=== PATIENT | male | born 1965 | race Two or more races ===

== ENCOUNTER → 2022-02-02 08:19 | Outpatient (BNV) | payer MEDICAID, SELFPAY | PROVIDERS: PCP Internal Medicine; Visit Provider Internal Medicine Medical Oncology | DX: E27.8 Other specified disorders of adrenal gland (principal) | CPT/HCPCS: 99204; 99213; 99214; 99215 ==

== ENCOUNTER 2022-02-09 11:38 | Day surgery (SDC) | payer MEDICAID, SELFPAY ==
--- NOTE | ~2022-02-09 | CT_ITS ---
PROCEDURE: CT GUIDED BIOPSY, ABDOMINAL MASS CLINICAL INFORMATION: Large right adrenal mass. COMPARISON: None TECHNIQUE: Following explaining CT fluoroscopy-guided right adrenal mass biopsy procedure, benefits and risks, a written consent was obtained. Patient was placed in the right lateral prone decubitus position and preliminary CT imaging was obtained with lead markers along the right posterolateral abdomen. An optimal marker was selected and marked on the skin. The marked site was cleaned and draped with 2% chlorhexidine solution. 1% lidocaine was injected at puncture site. Through a small skin incision an 18-gauge guide needle was advanced from the skin into the right adrenal mass. Coaxially an 18-gauge gun was administered into the right adrenal mass and a 3 pass fine-needle biopsy aspiration was performed. Postprocedure sterile dressing applied. Patient tolerated procedure extremely well. IV fentanyl and Versed were administered as part of conscious sedation and patient monitored for a good [address] examination was performed using dose optimization techniques as appropriate, variously including the following: *Automated exposure control *Adjustment of mA and/or kV according to patient size (this includes techniques or standardized protocols for targeted exams where dose is matched to indication/reason for exam; i.e. extremities or head) *Use of iterative reconstruction technique DLP: 267 mGy-cm FINDINGS: On preliminary CT imaging there is large right adrenal heterogeneous mass seen. A 3 pass 18-gauge core biopsy needle was performed. Sample collected was sent in formalin and RPM for further analysis. CT/CT biopsy abdomen percutaneous IMPRESSION: Successful CT fluoroscopy-guided right adrenal mass biopsy performed. There were no immediate complications.
[2022-02-09 12:20] VITALS: BMI 20.4
[2022-02-09 15:30] VITALS: BP 100/62; PULSE 84; RESP 16; TEMP 36.9; O2SAT 98
[2022-02-09 15:45] VITALS: BP 112/70; PULSE 84; RESP 16; O2SAT 97
[2022-02-09 16:00] VITALS: BP 118/65; PULSE 74; RESP 17; O2SAT 97
[2022-02-09 16:15] VITALS: BP 121/67; PULSE 83; RESP 18; O2SAT 97
[2022-02-09 16:30] VITALS: BP 110/69; PULSE 78; RESP 17; TEMP 36.4; O2SAT 99
== END 2022-02-09 16:45 | disposition home or self-care (01) ==
PROVIDERS: Internal Medicine; Radiology Diagnostic Radiology; PCP Internal Medicine; Visit Provider Internal Medicine Medical Oncology
DX: C74.91 Malignant neoplasm of unspecified part of right adrenal gland (principal); I25.10 Atherosclerotic heart disease of native coronary artery without angina pectoris; Z98.61 Coronary angioplasty status; J43.9 Emphysema, unspecified; K21.9 Gastro-esophageal reflux disease without esophagitis; Z79.899 Other long term (current) drug therapy; F17.210 Nicotine dependence, cigarettes, uncomplicated
CPT/HCPCS: 49180; 77012; 81210; 81235; 81275; 81276; 88305; 88341; 88342; 88360; 88374; 99152; J2250; J3010

== ENCOUNTER 2022-02-12 12:56 | Outpatient (REF) | payer MEDICAID, SELFPAY ==
--- NOTE | ~2022-02-12 | CT_ITS ---
EXAMINATION: CT CHEST WITH CONTRAST CLINICAL INFORMATION: Right adrenal mass. Evaluate lung cancer. COMPARISON: None TECHNIQUE: Multidetector volumetric CT imaging of the chest was obtained after the administration of 65 mL of Omnipaque 350 intravenous contrast without immediate adverse reactions. Axial MIP volume rendering provided. Sagittal and coronal reformatted images were obtained. This CT examination was performed using dose optimization techniques as appropriate, variously including the following: *Automated exposure control *Adjustment of mA and/or kV according to patient size (this includes techniques or standardized protocols for targeted exams where dose is matched to indication/reason for exam; i.e. extremities or head) *Use of iterative reconstruction technique DLP: 118 mGy-cm FINDINGS: LUNGS: There is a lobulated low-attenuation soft tissue nodule/mass seen in the central anterior segment of the left upper lobe. This measures 3.4 x 1.8 cm in AP and transverse dimension. There is an adjacent more inferior lateral low-attenuation lobulated nodule in the left upper lobe. Difficult to measure on axial images. This measures approximately 2 x 1.5 cm in longitudinal and transverse dimension coronal reconstructed 37 and 0.9 cm in AP dimension sagittal reconstructed image 37 series 9. There is evidence of severe emphysema. The lungs are otherwise clear. MEDIASTINUM: There are prominent left mediastinal lymph nodes. Largest lymph node is a left precarinal lymph node measuring 9 mm in short axis. There are small bilateral hilar lymph nodes. There are coronary artery stents. The heart does not appear enlarged. The thoracic aorta is normal in caliber . PLEURA: There is no pleural effusion. No pleural mass or thickening. AXILLA: Left axillary lymph nodes. Lymph nodes are slightly prominent, largest left axillary lymph node measuring 1.3 cm in short axis. Small right axillary lymph nodes. No chest wall mass. UPPER ABDOMEN: Stable 6.9 x 8.2 cm right adrenal mass. OSSEOUS STRUCTURES: There are degenerative changes of the spine. CT/CT chest w con IMPRESSION: Emphysema. 2 adjacent left upper lobe nodules. Prominent left mediastinal lymph nodes and prominent left axillary lymph nodes. Stable right adrenal mass. Fleischner guidelines were followed.
[2022-02-12] MEDS: iohexoL 350 MG/ML 100 ML INFUS..BTL 65 ML IV (13:51)
== END 2022-02-12 12:57 | disposition home or self-care (01) ==
LOC: HO.CT 12:56
PROVIDERS: PCP Internal Medicine; Visit Provider Internal Medicine Medical Oncology
DX: E27.8 Other specified disorders of adrenal gland (principal)
CPT/HCPCS: 71260; Q9967

== ENCOUNTER 2022-02-24 14:13 | Outpatient (REF) | payer MEDICAID, SELFPAY ==
--- NOTE | ~2022-02-24 | PE_ITS ---
EXAMINATION: Fluorine-18 FDG PET/CT Scan CLINICAL INDICATION: Initial treatment management. 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 PROCEDURE: 69 minutes following the intravenous administration of 12.9 mCi of fluorine 18 FDG, images from the top of the skull to the mid thighs were obtained using a combined PET/CT scanner with CT scan based attenuation correction. No intravenous contrast was administered. Transverse, coronal, sagittal, and volume reconstruction projections were obtained. The patient's blood glucose as determined by a finger stick, was 105 mg/dl immediately prior to injection. The radiotracer was injected intravenously through left antecubital superficial vein, without any complications. Total CT exam dose-length product 321.12 mGy-cm * These CT images were obtained using dose optimization techniques as appropriate, variously including the following: Automated exposure control * Adjustment of mA and/or kV according to patient size (this includes techniques or standardized protocols for targeted exams where dose is matched to indication/reason for exam; i.e. extremities or head) * Use of iterative reconstruction technique COMPARISON: CT of the chest done on 02/12/2022 FINDINGS: NECK AND VISUALIZED HEAD: No metabolically active disease is present. No evidence of any intracranial mass, mass effect, extra-axial fluid collection or midline shift present. There are no pathologically enlarged, morphologically abnormal metabolically active cervical lymphadenopathy present. Incidental note is made of diffuse mucoperiosteal thickening and sclerosis of the left maxillary sinus, consistent with chronic sinusitis. THORAX: Extensive emphysematous disease is present. Previously documented bilobed curvilinear left upper lobar lung mass seen at the level of the left lung apex abutting the adjacent part of the mediastinum, measuring approximately 3 cm at its maximum anteroposterior dimension shows intense abnormal FDG avidity with SUV max of 8.7 (283/813), highly suspicious for primary lung malignancy. There are no other additional lung nodule or metabolically active mediastinal or hilar lymphadenopathy present. Incidental note is made of atherosclerotic coronary arterial disease. The ascending thoracic aorta measures approximately 3.7 cm at its maximum dimension. The tracheobronchial tree is patent. No evidence of any pleural effusion or pneumothorax. There are no pathologically enlarged morphologically abnormal metabolically active axillary or internal mammary lymphadenopathy. ABDOMEN AND PELVIS: The index biopsy proved poorly differentiated right adrenal carcinoma, presumably metastatic is reidentified, currently measures approximately 8.8 cm at its maximum dimension (145:2), shows intense increased FDG avidity with SUV max of 11.9. Central photopenia consistent with central area of necrosis is present. No other additional metabolically active disease is identified within the abdomen and pelvis. Specifically, no evidence of any liver involvement present. The contralateral left adrenal gland appear unremarkable. Both kidneys appear unremarkable. The bowel loops are decompressed. The appendix is well-visualized and is unremarkable. Colonic diverticulosis is noted. Atherosclerotic disease of the aorta and is branches without aneurysm formation. Is no free fluid and/or free air. MUSCULOSKELETAL: No suspicious focal osseous lesion or metabolically active disease within the visualized axial and appendicular skeleton. Note is however made of moderate to severe compression fracture of T7 vertebral body without any concordant increased radiotracer activity, of indeterminate etiology. VASCULAR: Diffuse atherosclerotic disease of the aorta and is branches without aneurysm formation. PET/PET CT fusion skull to thigh IMPRESSION: 1. Abnormal study. The bilobed lobulated solid left upper lobar lung mass at the paramediastinal left lung apex measuring approximately 3 cm at its maximum dimension shows intense abnormal FDG avidity with SUV max of 8.7, highly suspicious for primary lung malignancy. No evidence of any metabolically active or pathologically enlarged mediastinal and/or hilar lymphadenopathy or pleural disease. 2. The index biopsy proved poorly differentiated right adrenal carcinoma, presumably metastatic is reidentified, currently measures 3.8 cm at its maximum dimension, shows intense increased FDG avidity with SUV max of 11.9, consistent with biopsy-proven malignancy. 3. No other additional metastatic sites are identified within the remainder of the entire visualized body. Specifically, no evidence of any liver or osseous involvement present. 4. Note is however made of moderate to severe compression fracture of T7 vertebral body without any concordant increased radiotracer activity, of indeterminate etiology.
== END 2022-02-24 14:14 | disposition home or self-care (01) ==
LOC: HO.PET 14:13
PROVIDERS: Visit Provider Internal Medicine
DX: Z13.89 Encounter for screening for other disorder (principal)

== ENCOUNTER 2022-03-02 14:52 | Outpatient (REF) | payer MEDICAID, SELFPAY ==
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
--- NOTE | ~2022-03-02 | XR_ITS ---
EXAMINATION: XR FEMUR, RIGHT CLINICAL INFORMATION: Chart is acute. Rule out for foreign body. COMPARISON: None TECHNIQUE: AP and lateral views of the right femur were obtained. FINDINGS: 2 views of right femur reveal no bony abnormality. There is no radiopaque foreign body seen. The soft tissues are normal. XR/XR femur RT 2V IMPRESSION: No radiopaque foreign body seen in the right femur/thigh.
== END 2022-03-02 14:53 | disposition home or self-care (01) ==
LOC: HO.MRI 14:52
PROVIDERS: Visit Provider Internal Medicine
DX: C34.90 Malignant neoplasm of unspecified part of unspecified bronchus or lung (principal); C79.9 Secondary malignant neoplasm of unspecified site
CPT/HCPCS: 73552; 73590

== ENCOUNTER 2022-03-04 08:48 | Outpatient (REF) | payer MEDICAID, SELFPAY ==
--- NOTE | ~2022-03-04 | US_ITS ---
EXAMINATION: US ABDOMEN COMPLETE CLINICAL INFORMATION: Elevated liver enzymes. COMPARISON: CT abdomen and pelvis 01/19/2022. TECHNIQUE: Real-time imaging of the abdominal viscera. FINDINGS: PANCREAS: Normal. ABDOMINAL AORTA: The upper and mid abdominal aorta are normal in caliber. The distal abdominal aorta is not well visualized. INFERIOR VENA CAVA: Visualized portions are normal. LIVER: The liver is normal in size. The liver contour is normal. Liver echotexture is increased probably representing fatty alteration. No focal hepatic lesion. There is no intrahepatic biliary duct dilatation seen. GALLBLADDER: The gallbladder is normal in size. There is some dependent echogenic bile seen in the gallbladder. The gallbladder wall is normal. There is no pericholecystic fluid. COMMON BILE DUCT: Normal in caliber measuring 0.4 cm in diameter. RIGHT KIDNEY: No hydronephrosis. No renal calculi or focal parenchymal lesions. The kidney measures 12.6 cm in maximum dimension. There is a 7.7 x 9.4 x 8.2 cm hypoechoic suprarenal mass. This corresponds to known right adrenal mass when compared with previous CT scan. LEFT KIDNEY: Normal. No hydronephrosis. No renal calculi or focal parenchymal lesions. The kidney measures 12.8 cm in maximum dimension. SPLEEN: Normal. The spleen measures 11.1 cm in maximum dimension. FREE FLUID: None. US/US abdomen complete IMPRESSION: Echogenic liver probably representing fatty infiltration. Small amount of sludge in the gallbladder. No gallstones or biliary duct dilatation. Large right adrenal mass similar to previous CT scan. Nonvisualization of the distal abdominal aorta.
== END 2022-03-04 08:49 | disposition home or self-care (01) ==
LOC: HO.US 08:48
PROVIDERS: Visit Provider Internal Medicine
DX: R74.8 Abnormal levels of other serum enzymes (principal)
CPT/HCPCS: 76700

== ENCOUNTER 2022-03-05 18:43 | Outpatient (REF) | payer MEDICAID, SELFPAY ==
--- NOTE | ~2022-03-05 | MR_ITS ---
EXAMINATION: MR BRAIN WITHOUT AND WITH CONTRAST CLINICAL INFORMATION: Staging lung carcinoma. COMPARISON: PET CT scan 02/24/2022. TECHNIQUE: Multiplanar, multisequence MRI of the brain was obtained before and after the intravenous administration of 7 mL Gadavist. FINDINGS: No diffusion abnormalities are identified to suggest an acute or subacute infarct. No mass effect or midline shift is seen. There is mild commensurate prominence of the ventricles and sulci. There are a few scattered foci of hyperintense T2 and FLAIR signal in the white matter which are nonspecific, most consistent with mild chronic microvascular ischemic changes. No extra-axial fluid collections are seen. The brainstem appears normal. On postcontrast imaging, there is no abnormal parenchymal or leptomeningeal enhancement. No pathologic magnetic susceptibility artifact is identified on the gradient refocused acquisition. The cerebellar tonsils have normal contour and position, and the craniocervical junction appears normal. Marrow signal and midline structures are normal. The major intracranial flow-voids at the level of the [place] are preserved. The dural venous sinus flow-voids are maintained. There is trace fluid at the right mastoid tip. The left maxillary sinus is atelectatic and partially opacified. MR/MR head/brain wo/w con IMPRESSION: 1. There are no acute bleeds or infarcts. There are no masses or areas of abnormal enhancement. 2. There is mild diffuse volume loss, and there are mild chronic microvascular ischemic changes.
== END 2022-03-05 18:44 | disposition home or self-care (01) ==
LOC: HO.MRI 18:43
PROVIDERS: Visit Provider Internal Medicine
DX: C34.90 Malignant neoplasm of unspecified part of unspecified bronchus or lung (principal); C79.9 Secondary malignant neoplasm of unspecified site
CPT/HCPCS: 70553; A9585

== ENCOUNTER → 2022-03-13 13:13 | Outpatient (REF) | payer MEDICAID, SELFPAY ==
--- NOTE | 2022-03-13 13:17 | CA_ITS ---
Transthoracic Echocardiogram Patient (Last, First, Middle): Javier Soni A Gender: Male Date of : 1965 Age: 56 Procedure Date: 03/13/2022 Procedure Type: Transthoracic Echocardiogram Location: OP Height: 185.42 cm Weight: 70.31 kg BSA: 1.93 m2 Heart Rate: bpm Acid Pumper: MARLON Referring MD: Alana Gonzalez MD Corn Shucker: Bebeto Edouard MD Symptoms: prechemo eval Study Quality: Good ECG Rhythm: Sinus Conclusions: - 1. Normal LV systolic and diastolic function 2. Mildly dilated left atrium 3. Mobile interatrial septum with small PFO noted by color Doppler 4. Normal RV systolic pressure 5. No pericardial effusion Findings Left Ventricle Normal left ventricular size, thickness, and systolic function. The visually estimated ejection fraction is between 55-60%. Spectral Doppler is indicative of a normal filling pattern. Peak GLS is -19.5%, which is normal Right Ventricle Normal right ventricular cavity size and systolic function. Atria The left atrium is mildly dilated. There is a mobile atrial septum noted. Patent foramen ovale detected using by color Doppler. There is evidence of a patent foramen ovale with left to right shunting. The right atrium is normal in size. Aortic Valve Normal aortic valve structure and function. There is no aortic valve stenosis. There is no aortic valve regurgitation. Mitral Valve Normal mitral valve structure and function. There is trace mitral valve regurgitation. There is no mitral valve stenosis. Pulmonic Valve The pulmonic valve was not well visualized. Tricuspid Valve Likely normal tricuspid valve structure and function. There is trace tricuspid valve regurgitation. The right ventricular systolic pressure is normal. The right ventricular systolic pressure is 29 mmHg. Normal right atrial pressure. There is no evidence of pulmonary hypertension. Great Vessels All visible segments of the aorta are normal in size. The pulmonary artery was not well visualized. Venous The inferior vena cava is normal in size and collapses greater than 50% with inspiration. Pericardium/Pleural There is no evidence of pericardial effusion. Measurements 2D Linear Measurements IVSd: 0.71 0.6-0.9/0.6-1.0 cm LVIDd: 6.06 3.9-5.3/4.2-5.9 cm LVIDd Index: 3.14 2.4-3.2/2.2-3.1 cm/m2 LVIDs: 4.12 2.0-3.6 cm LVPWd: 0.75 0.7-1.1 cm LA Diam: 4.30 2.7-3.8/3.0-4.0 cm LAIDs Index: 2.23 1.5-2.3 cm/m2 LV Mass: 209.94 67-162/88-224 g LV Mass Index: 108.78 43-95/49-115 g/m2 LVOT Diam: 2.60 3.0+(-)1.3 cm 2D Systolic Function EF 4C: 49.10 >55% EF 2C: 55.40 >55% EF BiP: 55.40 >55% Mitral Valve MV Pk E: 1.11 MV PK A: 0.77 MV Decel Time: 239.00 E/A: 1.50 E'Lateral: 9.57 E'Medial: 7.62 E/E' Med: 14.60 E/E' Lat: 11.60 PHT: 70.00 MVA PHT: 3.14 Decel [place]: 4.66 Aortic Valve AoV Pk Sonido: 1.31 AoV Mn Sonido: 0.96 AoV VTI: 0.31 AoV Pk Grad: 7.00 Aov Mn Grad: 4.00 XANDER Cont.VTI: 4.43 LVOT LVOT Pk Sonido: 1.22 LVOT Mn Sonido: 0.78 LVOT VTI: 0.26 LVOT Pk Grad: 6.00 LVOT Mn Grad: 3.00 LVOT Diam: 2.60 LVOT Area: 5.31 Diastolic Function MV Pk E: 1.11 MV Pk A: 0.77 E/A: 1.50 E'Medial: 7.62 E/E' Med: 14.60 E' Laterial: 9.57 E/E' Lat: 11.60 Right Ventricle TAPSE (mm): 22.60 TVS' Sonido: 11.90 Tricuspid Valve TR Pk Sonido: 2.31 TR Pk Grad: 21.00 RA Press: 8.00 RVSP: 29.00 Great Vessels Aorta Sinus of Valsalva: 3.40 2.0-3.5 cm Ao Asc: 3.60 2.1-3.4 cm Pulmonary Veins Pulm Vein S/D 0.80 Pulmonary Valve PV Pk Sonido: 0.93 Peak PV Grad: 3.00 Shunting QP:QS: 0.50 Updated in Other Vendor System with Status of Final Bebeto Edouard MD electronically signed on 03/17/2022 8:29:11 AM with status of Final
== END ==
LOC: HO.CARD 13:13
PROVIDERS: Visit Provider Internal Medicine
DX: I25.10 Atherosclerotic heart disease of native coronary artery without angina pectoris (principal)
CPT/HCPCS: 93306; 93356

== ENCOUNTER 2022-03-23 15:20 | Emergency (ER) | payer MEDICAID, SELFPAY ==
[2022-03-23 16:37] VITALS: BP 119/78; PULSE 88; RESP 16; TEMP 36.9; O2SAT 97
[2022-03-23 16:57] LABS: Basophils Absolute Auto 0.2 X10*3/uL (0.0-0.2); Basophils Percent Auto 0.8 % (0-2); Eosinophils Percent Auto 0.2 % (0-4); Hematocrit 31.2 % (42.0-52.0); Hemoglobin 9.9 g/dl (14.0-18.0); Imm Gran Abs Auto 0.31 X10*3/uL (0.00-0.03); Imm Gran Pct Auto 1.7 % (0.0-0.4); Lymphocytes Absolute Auto 2.4 X10*3/uL (1.2-4.9); Lymphocytes Percent Auto 13.3 % (20-40); Mean Corpuscular HGB Conc 31.7 g/dl (31.0-36.0); Mean Corpuscular Hemoglobin 23.2 pg (27.0-33.0); Mean Corpuscular Volume 73.2 fL (80.0-98.0); Mean Platelet Volume 9.3 fL (9.4-12.4); Monocytes Absolute Auto 2.6 X10*3/uL (0.1-1.2); Monocytes Percent Auto 14.5 % (2-11); Neutrophils Absolute Auto 12.4 x10*3/uL (2.0-8.3); Neutrophils Percent Auto 69.5 % (45-73); Platelet Count 459 X10*3/uL (160-400); Red Blood Count 4.26 X10*6/uL (4.60-5.80); Red Cell Distribution Width 21.9 % (11.0-16.0); SCAN SMEAR FLAG 1; White Blood Count 17.8 X10*3/uL (4.8-10.8)
[2022-03-23 16:59] LABS: MANUAL DIFF FLAG SCAN
[2022-03-23 17:14] LABS: Anion Gap 15 (12-20); Blood Urea Nitrogen 11 mg/dL (9-16); Calcium 8.4 mg/dL (8.4-10.2); Carbon Dioxide 23 mmol/L (22-29); Chloride 96 mmol/L (96-108); Creatinine Clr Calc Pharmacy 140.3; Estimated Glomerular Filt Rate > 60; Glucose Random 110 mg/dL (60-115); Potassium 4.1 mmol/L (3.3-5.1); Sodium 130 mmol/L (135-145)
[2022-03-23 17:20] LABS: COVID-19 Test Negative (Negative); IDNOW Serial# 16C4AD1C
[2022-03-23 17:21] LABS: B Type Natriuretic Peptide 42 pg/mL (<100)
[2022-03-23 17:40] LABS: SLIDE REVIEW VERIFIED
[2022-03-23 19:37] VITALS: BP 121/70; PULSE 72; RESP 15; TEMP 36.8; O2SAT 99
--- NOTE | 2022-03-23 20:06 | ED_ITS ---
HPI - General Adult General Chief complaint: Weakness Stated complaint: goyo. leg swelling ..chemotherapyphy Time Seen by Provider: 03/23/22 20:06 Source: patient Mode of arrival: ambulatory Limitations: no limitations History of Present Illness HPI narrative: Patient has stage IV lung cancer with Mets to adrenal comes here for increased nausea and vomiting started earlier today no abdominal distension or pain no fever or chills no significant shortness of breath has the swelling of the legs off and on none at this time patient with increased nausea since started on chemotherapy 3 weeks ago Related Data Home Medications Medication Instructions Recorded Confirmed acetaminophen 500 mg tablet 2 tab PO Q12H PRN Pain 02/02/22 03/03/22 aspirin 81 mg tablet,delayed 1 tab PO DAILY 02/02/22 03/03/22 release atorvastatin 80 mg tablet 1 tab PO DAILY 02/02/22 03/03/22 cholecalciferol (vitamin D3) 25 1 cap PO DAILY 02/02/22 03/03/22 mcg (1,000 unit) capsule (Vitamin D3) metoprolol succinate 25 mg 1 tab PO DAILY 02/02/22 03/03/22 tablet,extended release 24 hr oxycodone 5 mg tablet 1 tab PO Q6H PRN severe pain 02/02/22 03/03/22 pantoprazole 40 mg tablet,delayed 1 tab PO DAILY 02/02/22 03/03/22 release Previous Rx's Medication Instructions Recorded folic acid 1 mg tablet 1 mg PO DAILY #90 tabs 03/03/22 morphine 30 mg tablet,extended 30 mg PO Q12H #60 tabs 03/11/22 release (MS Contin) sennosides 8.6 mg-docusate sodium 1 tab-cap PO BEDTIME #60 tabs 03/11/22 50 mg tablet (Senna with Docusate Sodium) chlorpromazine 25 mg tablet 25 mg PO Q4-6H PRN Hiccups #60 tabs 03/13/22 baclofen 10 mg oral granules in 10 mg PO TID #30 ea 03/19/22 packet Allergies Allergy/AdvReac Type Severity Reaction Status Date / Time bee pollen [bee stings] Allergy Swelling Verified 03/13/22 11:10 Review of Systems Review of Systems: Yes all other systems are reviewed and are negative PMFSH Past Medical History Medical History CAD (coronary artery disease) Centrilobular emphysema Coronary artery disease involving [place] heart without angina pectoris Emphysema, unspecified GERD (gastroesophageal reflux disease) Oral-nasal fistula Osteopenia Periodontal disease Surgical History History of heart artery stent Family History Family History Father Cancer of prostate Social History Social History Household Members: Family Housing: House Are you a primary intensive care specialist to a significant other at home: No Do you presently have visiting nurse or other home services: No Alcohol intake: never Patient Tobacco Use Status: Current everyday Tobacco user Tobacco use type: Cigarette Smoked in Last 30 Days: Yes Second Hand Smoke Exposure: No Use of substances other than those prescribed or required for medical reasons: Yes Substance Use Type: Marijuana Substance Use Frequency: Daily Advance Directives: No Advance Directives Information Provided: No service: No Current occupational status: unemployed Physical Exam ED Vital Signs: Vital Signs - 24 hr 03/23/22 16:37 03/23/22 19:37 03/23/22 21:37 Temperature 98.4 F 98.3 F Pulse Rate 88 72 77 Respiratory Rate 16 15 22 H Blood Pressure 119/78 121/70 129/71 Pulse Oximetry 97 99 97 Oxygen Delivery Method Room Air Room Air Room Air 03/23/22 22:00 03/23/22 23:55 Temperature 98.2 F 97.2 F Pulse Rate 78 89 Respiratory Rate 16 16 Blood Pressure 132/67 144/73 H Pulse Oximetry 98 98 Oxygen Delivery Method Room Air Room Air BMI result Body Mass Index 20.0 Appearance: Alert. Oriented X3. No acute distress. Eyes: PERRLA, No Nystagmus pale+ ENT: Pharynx normal. Oral Mucosa moist Neck: Normal inspection. Neck supple. CVS: Normal heart rate and rhythm. Pulses normal. Respiratory: No respiratory distress. Equal air entry bilateral, no wheezing/rales/rhonchi Abdomen: Soft and nontender. Bowel sounds are present, no mass palpable, no CVA tenderness Skin: Skin warm and dry. Normal skin color. Normal skin turgor. Extremities: No lower extremity edema. No calf tenderness Neuro: Oriented X 3. No motor deficit. No sensory deficit.No cerebellar signs , cranial nerves II-XII intact Medical Decision Making MDM Narrative Medical decision making narrative: Patient with stage IV lung cancer with vomiting level showed leukocytosis which patient has 1st last few months no source of infection patient received IV fluids and IV chlorpromazine and feeling much better able to take p.o. fluids will discharge patient home Lab Data Lab results reviewed: Yes I reviewed the patient's lab results. Result diagrams: 03/23/22 16:49 03/23/22 16:49 Labs: Lab Results 03/23/22 03/23/22 03/23/22 Range/Units 16:49 16:49 16:49 WBC 17.8 H (4.8-10.8) X10*3/uL RBC 4.26 L (4.60-5.80) X10*6/uL Hgb 9.9 L (14.0-18.0) g/dl Hct 31.2 L (42.0-52.0) % MCV 73.2 L (80.0-98.0) fL MCH 23.2 L (27.0-33.0) pg MCHC 31.7 (31.0-36.0) g/dl RDW 21.9 H (11.0-16.0) % Plt Count 459 H (160-400) X10*3/uL MPV 9.3 L (9.4-12.4) fL Immature Gran % (Auto) 1.7 H (0.0-0.4) % Neut % (Auto) 69.5 (45-73) % Lymph % (Auto) 13.3 L (20-40) % [place] % (Auto) 14.5 H (2-11) % Eos % (Auto) 0.2 (0-4) % Baso % (Auto) 0.8 (0-2) % Lymph # (Auto) 2.4 (1.2-4.9) X10*3/uL [place] # (Auto) 2.6 H (0.1-1.2) X10*3/uL Eos # (Auto) 0.0 (0.0-0.4) X10*3/uL Baso # (Auto) 0.2 (0.0-0.2) X10*3/uL Abs Immat Gran (auto) 0.31 H (0.00-0.03) X10*3/uL Absolute Neuts (auto) 12.4 H (2.0-8.3) x10*3/uL Absolute Nucleated RBC 0.000 (0.0-0.012) X10*3/uL Nucleated RBC % (auto) 0.0 (0.0-0.2) /100WBC Smear Tech's Comments VERIFIED Sodium 130 L (135-145) mmol/L Potassium 4.1 (3.3-5.1) mmol/L Chloride 96 (96-108) mmol/L Carbon Dioxide 23 (22-29) mmol/L Anion Gap 15 (12-20) BUN 11 (9-16) mg/dL Creatinine 0.58 (0.5-1.4) mg/dL Estim Creat Clear Calc 140.3 Estimated GFR > 60 Random Glucose 110 (60-115) mg/dL Calcium 8.4 (8.4-10.2) mg/dL Total Bilirubin 0.8 (0.0-1.0) mg/dL Direct Bilirubin 0.6 H (0.0-0.5) mg/dL AST 81 H (5-37) U/L ALT 74 H (0-40) U/L Alkaline Phosphatase 2318 H (39-117) U/L B-Natriuretic Peptide 42 (<100) pg/mL Total Protein 8.0 (6.5-8.0) g/dL Albumin 2.2 L (3.5-5.0) g/dL Lipase 13 (8-78) U/L COVID-19 ([facility]) (Negative) COVID-19 Clin Com 03/23/22 Range/Units 16:49 WBC (4.8-10.8) X10*3/uL RBC (4.60-5.80) X10*6/uL Hgb (14.0-18.0) g/dl Hct (42.0-52.0) % MCV (80.0-98.0) fL MCH (27.0-33.0) pg MCHC (31.0-36.0) g/dl RDW (11.0-16.0) % Plt Count (160-400) X10*3/uL MPV (9.4-12.4) fL Immature Gran % (Auto) (0.0-0.4) % Neut % (Auto) (45-73) % Lymph % (Auto) (20-40) % [place] % (Auto) (2-11) % Eos % (Auto) (0-4) % Baso % (Auto) (0-2) % Lymph # (Auto) (1.2-4.9) X10*3/uL [place] # (Auto) (0.1-1.2) X10*3/uL Eos # (Auto) (0.0-0.4) X10*3/uL Baso # (Auto) (0.0-0.2) X10*3/uL Abs Immat Gran (auto) (0.00-0.03) X10*3/uL Absolute Neuts (auto) (2.0-8.3) x10*3/uL Absolute Nucleated RBC (0.0-0.012) X10*3/uL Nucleated RBC % (auto) (0.0-0.2) /100WBC Smear Tech's Comments Sodium (135-145) mmol/L Potassium (3.3-5.1) mmol/L Chloride (96-108) mmol/L Carbon Dioxide (22-29) mmol/L Anion Gap (12-20) BUN (9-16) mg/dL Creatinine (0.5-1.4) mg/dL Estim Creat Clear Calc Estimated GFR Random Glucose (60-115) mg/dL Calcium (8.4-10.2) mg/dL Total Bilirubin (0.0-1.0) mg/dL Direct Bilirubin (0.0-0.5) mg/dL AST (5-37) U/L ALT (0-40) U/L Alkaline Phosphatase (39-117) U/L B-Natriuretic Peptide (<100) pg/mL Total Protein (6.5-8.0) g/dL Albumin (3.5-5.0) g/dL Lipase (8-78) U/L COVID-19 ([facility]) Negative (Negative) COVID-19 Clin Com See Note Discharge Plan Discharge Clinical Impression: Chemotherapy induced nausea and vomiting Patient Disposition: Home, Self-Care Instructions: Chemo Induced Nausea and Vomiting (ED) Additional Instructions: Drink plenty of fluids Take chlorpromazine 1 tablet every 4- 6 hours as needed for nausea and vomiting Report to the ER if increased abdominal pain//not getting better Prescriptions: No Action atorvastatin 80 mg tablet 1 tab PO DAILY aspirin 81 mg tablet,delayed release (DR/EC) 1 tab PO DAILY acetaminophen 500 mg tablet 2 tab PO Q12H PRN (Reason: Pain) pantoprazole 40 mg tablet,delayed release (DR/EC) 1 tab PO DAILY metoprolol succinate 25 mg tablet extended release 24 hr 1 tab PO DAILY oxycodone 5 mg tablet 1 tab PO Q6H PRN (Reason: severe pain) cholecalciferol (vitamin D3) [Vitamin D3] 25 mcg (1,000 unit) capsule 1 cap PO DAILY folic acid 1 mg Tablet 1 mg PO DAILY Qty: 90 3RF sennosides-docusate sodium [Senna with Docusate Sodium] 8.6-50 mg Tablet 1 tab-cap PO BEDTIME Qty: 60 0RF morphine [MS Contin] 30 mg Tablet Extended Release 30 mg PO Q12H Qty: 60 0RF Rx Instructions: Partial Fill upon patient request. chlorpromazine 25 mg Tablet 25 mg PO Q4-6H PRN (Reason: Hiccups) Qty: 60 4RF baclofen 10 mg Granules In Packet 10 mg PO TID Qty: 30 3RF Rx Instructions: TAKE 1 TABLET NEEDED P.R.N. HICCUPS. Interventions: ED Discharge Assessment Last Done: 03/23/22 23:57 Discharge Date/Time: 03/23/22 23:58 Print Language: Nepalese
[2022-03-23 20:56] LABS: Alanine Aminotransferase 74 U/L (0-40); Albumin Level 2.2 g/dL (3.5-5.0); Alkaline Phosphatase 2318 U/L (39-117); Aspartate Amino Transferase 81 U/L (5-37); Bilirubin Direct 0.6 mg/dL (0.0-0.5); Bilirubin Total 0.8 mg/dL (0.0-1.0); Lipase 13 U/L (8-78)
[2022-03-23 21:37] VITALS: BP 129/71; PULSE 77; RESP 22; O2SAT 97
[2022-03-23] MEDS: 0.9 % Sodium Chloride 1,000 ML 999 ML IV (21:37)
[2022-03-23] MEDS: Prochlorperazine Edisylate 10 MG/2 ML VIAL IVPUSH (21:40)
[2022-03-23 22:00] VITALS: BP 132/67; PULSE 78; RESP 16; TEMP 36.8; O2SAT 98
[2022-03-23 23:55] VITALS: BP 144/73; PULSE 89; RESP 16; TEMP 36.2; O2SAT 98
--- NOTE | 2022-03-23 23:56 | PC.NURSE ---
Pt. alert and oriented, sitting in bed waiting for d/c.
== END 2022-03-23 23:58 | disposition home or self-care (01) ==
PROVIDERS: Emergency Provider Internal Medicine; PCP Internal Medicine
DX: R11.2 Nausea with vomiting, unspecified (principal); Z92.21 Personal history of antineoplastic chemotherapy; D72.829 Elevated white blood cell count, unspecified; R06.02 Shortness of breath; Z20.822 Contact with and (suspected) exposure to COVID-19; C34.90 Malignant neoplasm of unspecified part of unspecified bronchus or lung; C79.70 Secondary malignant neoplasm of unspecified adrenal gland; F17.210 Nicotine dependence, cigarettes, uncomplicated; F12.90 Cannabis use, unspecified, uncomplicated; Z79.82 Long term (current) use of aspirin; Z79.02 Long term (current) use of antithrombotics/antiplatelets; Z79.899 Other long term (current) drug therapy
CPT/HCPCS: 80048; 80076; 83690; 83880; 85025; 87635; 96374; 99284

== ENCOUNTER 2022-05-27 15:55 | Outpatient (REF) | payer MEDICAID, SELFPAY ==
--- NOTE | ~2022-05-27 | CT_ITS ---
EXAMINATION: CT CHEST WITH CONTRAST CLINICAL INFORMATION: Follow up lung cancer on treatment. COMPARISON: CT chest 02/12/2022. TECHNIQUE: Multidetector volumetric CT imaging of the chest was obtained after the administration of 65 mL of Omnipaque 350 intravenous contrast without immediate adverse reactions. Axial MIP volume rendering provided. Sagittal and coronal reformatted images were obtained. This CT examination was performed using dose optimization techniques as appropriate, variously including the following: *Automated exposure control *Adjustment of mA and/or kV according to patient size (this includes techniques or standardized protocols for targeted exams where dose is matched to indication/reason for exam; i.e. extremities or head) *Use of iterative reconstruction technique DLP: 130 mGy-cm FINDINGS: MUSICAL THERAPIST: Well-inflated lungs. LUNGS: There is diffuse paraseptal emphysema without acute pneumonic process. Again visualized is a small left upper lobe paramediastinal base nodule now measuring 1.9 cm x 1 cm on sagittal image 45/6. Previously it measured 3.4 x 1.8 cm. It has improved in size. There is 6 mm nodule right upper lobe axial image 141/9 probably there on the previous exam but faintly visualized. There are no new nodules visualized. There is focal atelectatic changes in the right lung base. MEDIASTINUM: The thyroid lobes are asymmetrical but normal. Central trachea and the bronchi are widely patent. Heart size and the great vessels are normal caliber. There are mild coronary artery calcifications present. No pericardial effusion seen. Small shotty lymph nodes seen in the para-aortic space. PLEURA: There is no pleural effusion. No pleural mass or thickening. AXILLA: There are small shotty lymph nodes in the axilla with largest lymph node measuring 1.8 cm. UPPER ABDOMEN: The liver is diffusely attenuated but normal size and contour. No focal lesion seen. No intrahepatic ductal dilatation. The gallbladder, spleen and pancreas unremarkable. OSSEOUS STRUCTURES: No aggressive lytic or sclerotic process seen. There is mild compression deformity T7 vertebra. CT/CT chest w IV con IMPRESSION: 1. Interval decrease in the left upper lobe paramediastinal based nodule. 2. There is a 6 mm nodule right upper lobe which was not distinctly visualized on the previous exam. No new nodules seen. 3. No abnormal mediastinal or axillary lymph nodes seen. Fleischner guidelines were followed.
[2022-05-27] MEDS: iohexoL 350 MG/ML 100 ML INFUS..BTL IV (16:52)
== END 2022-05-27 15:56 | disposition home or self-care (01) ==
LOC: HO.CT 15:55
PROVIDERS: PCP Internal Medicine; Visit Provider Internal Medicine Medical Oncology
DX: C34.90 Malignant neoplasm of unspecified part of unspecified bronchus or lung (principal)
CPT/HCPCS: 71260; Q9967

== ENCOUNTER → 2022-06-23 10:47 | Outpatient (REF) | payer MEDICAID, SELFPAY ==
--- NOTE | ~2022-06-23 | NM_ITS ---
EXAMINATION: NM BONE SCAN OF THE WHOLE BODY CLINICAL INFORMATION: Personal history of lung cancer, on chemotherapy. Right hip pain. COMPARISON: PET CT study done on 02/24/2022. TECHNIQUE: Multiple gamma scintillation camera images of the whole body were performed 2.25 hours following the intravenous administration of 27 mCi Tc-99m MDP. The radiotracer was injected through right antecubital superficial vein, without complications. FINDINGS: In the head, small focal asymmetric increased radiotracer activity is present at the right frontal skull, seen only on the whole body images, nonspecific in appearance, not reproduced on the spot images, may represent artifact. In the thoracic cage and upper extremities, linear increased radiotracer activities are present involving the anterior aspect of the right first and fourth ribs, suspicious for osseous metastasis. Increased radiotracer activity is also noted within the proximal part of the body of the stomach, shows linear configuration, may represent metastatic disease versus arthritic changes at the manubriosternal junction. In the spine, no definite suspicious focal lesion. In the pelvis, small focal increased radiotracer activity is noted within the left lower pelvis, seen only on the frontal projection, may represent urinary contamination. In the lower extremities, no suspicious focal lesion to suspect metastatic disease. No other definite bony abnormalities are noted. The urinary bladder and faint visualization of both kidneys are noted. NM/NM bone scan whole body IMPRESSION: 1. Abnormal linear increased radiotracer activities are present at the anterior end of the right first and fourth ribs, suspicious for osseous metastasis. 2. Focal increased radiotracer activity projecting along the anterior part of the left lower hemipelvis likely represent urinary contamination. 3. No definite scintigraphic evidence of suspicious osseous lesion in the region of the right hip to explain right hip pain. Alternative imaging modality including MRI of the right hip may be considered for further clarification, especially to exclude soft tissue abnormality (to explain patient's pain), if clinically appropriate.
== END ==
LOC: HO.NUCMED 10:47
PROVIDERS: PCP Internal Medicine; Visit Provider Internal Medicine Medical Oncology
DX: M25.552 Pain in left hip (principal); M25.551 Pain in right hip
CPT/HCPCS: 78306; A9503

== ENCOUNTER 2022-08-04 17:47 | Outpatient (REF) | payer MEDICAID, SELFPAY ==
--- NOTE | ~2022-08-04 | MR_ITS ---
EXAMINATION: MR HIP WITHOUT AND WITH CONTRAST, RIGHT CLINICAL INFORMATION: Right hip pain and numbness. COMPARISON: Multiple priors, most recent bone scan dated 06/23/2022, right femur radiographs dated 03/02/2022, and PET/CT dated 02/24/2022. TECHNIQUE: MRI of the right hip was performed before and after the intravenous injection of 7.5 mL Gadavist on a high-field scanner. FINDINGS: ACETABULAR LABRUM: Thin linear fluid signal extending through the undersurface of the anterosuperior labrum, consistent nondisplaced undersurface tearing. ARTICULAR CARTILAGE/BONE: Mild articular cartilage thinning with tiny marginal osteophytes. No stress reaction, fracture, or avascular necrosis. No concerning lytic or blastic osseous lesion. No significant postcontrast marrow enhancement. No evidence of metastatic disease. The acetabular depth is within normal limits. MUSCLES/TENDONS: Mildly increased T2 signal adjacent to the gluteus medius and gluteus minimus tendons consistent with mild tendinosis. Ossification in the distal aspect of the gluteus medius tendon consistent with calcific tendinitis and unchanged. JOINT FLUID/BURSA: No significant joint effusion. No significant greater trochanteric bursitis. INTRAPELVIC STRUCTURES: Unremarkable. MR/MR hip RT wo/w con IMPRESSION: 1. Nondisplaced undersurface tear of the anterosuperior labrum. 2. Mild right hip arthrosis. No stress reaction, fracture, or avascular necrosis. No evidence of metastatic disease. 3. Gluteus medius calcific tendinitis with mild gluteus medius and minimus tendinosis.
== END 2022-08-04 17:48 | disposition home or self-care (01) ==
LOC: HO.MRI 17:47
PROVIDERS: PCP Internal Medicine; Visit Provider Internal Medicine Medical Oncology
DX: C34.92 Malignant neoplasm of unspecified part of left bronchus or lung (principal)
CPT/HCPCS: 73723; A9585

== ENCOUNTER 2022-08-17 11:04 | Outpatient (REF) | payer MEDICAID, SELFPAY ==
--- NOTE | ~2022-08-17 | XR_ITS ---
EXAMINATION: XR PELVIS CLINICAL INFORMATION: Hip pain COMPARISON: None TECHNIQUE: AP view of the pelvis. FINDINGS: There is bilateral symmetry of visualized in the SI joints. No visible acute fracture, dislocation seen. The soft tissues are normal. XR/XR pelvis 1-2V IMPRESSION: Bilateral SI joint symmetry. No visible acute fracture, dislocation or subluxation seen.
== END 2022-08-17 11:05 | disposition home or self-care (01) ==
LOC: HO.HOSX 11:04
PROVIDERS: Visit Provider Orthopaedic Surgery
DX: M25.551 Pain in right hip (principal); M76.891 Other specified enthesopathies of right lower limb, excluding foot
CPT/HCPCS: 20610; 72170; 99202; J1100

== ENCOUNTER 2022-08-25 12:02 | Outpatient (REF) | payer MEDICAID, SELFPAY ==
--- NOTE | ~2022-08-25 | PE_ITS ---
EXAMINATION: Fluorine-18 FDG PET/CT Scan CLINICAL INDICATION: Subsequent treatment management. Metastatic non-small cell lung carcinoma on chemotherapy, restaging. PROCEDURE: 54 minutes following the intravenous administration of 18.7 mCi of fluorine 18 FDG, images from the base of the skull to the mid thighs were obtained using a combined PET/CT scanner with CT scan based attenuation correction. No oral contrast was administered. No intravenous contrast was administered. Transverse, coronal, sagittal, and volume reconstruction projections were obtained. The patient's blood glucose as determined by a finger stick, was 93 mg/dl immediately prior to injection. Total CT exam dose-length product 358.64 mGy-cm * These CT images were obtained using dose optimization techniques as appropriate, variously including the following: Automated exposure control * Adjustment of mA and/or kV according to patient size (this includes techniques or standardized protocols for targeted exams where dose is matched to indication/reason for exam; i.e. extremities or head) * Use of iterative reconstruction technique COMPARISON: The previous PET CT scan dated 02/24/2022 is available for comparison. CT scan of the chest dated 05/27/2022 is also available for comparison. FINDINGS: (Slice numbers described in this report are numbered superiorly to inferiorly with slice #1 in the head) NECK AND VISUALIZED HEAD: No foci of abnormal FDG activity are noted. The distribution of FDG activity is physiological. There is no cervical lymphadenopathy. There is almost complete opacification of the left maxillary sinus. This does not show definite abnormal FDG activity but due to head motion between the CT and PET images these are not well code registered and mild FDG activity in this region cannot be ruled out. THORAX: Intensely FDG avid medial left upper lobe mass present on the 02/24/[address] scan is no longer present. There is some persistent soft tissue density which abuts the medial pleura of the left upper lobe and the posterior aspect of a anteromedial bulla in the left upper lobe. The soft tissue density now measures approximately 2.0 x 1.0 cm in largest transverse dimensions and approximately 1.3 cm cephalocaudad. Previously this measured 3.0 cm at its maximum dimension. There are now no foci of abnormal FDG activity present in the lungs. There is a 0.6 cm right upper lobe pulmonary nodule which appears stable compared to prior studies, slice 270/698 and is too small to be characterized on the FDG PET images. No additional pulmonary nodules are visualized. Extensive anterior upper lobe bullae are present bilaterally superimposed on diffuse emphysema. No additional nodules are present. There is no mediastinal, supraclavicular, or axillary lymphadenopathy. There is no pleural or pericardial fluid, or pneumothorax. ABDOMEN AND PELVIS: There are no foci of abnormal FDG activity in the abdomen or pelvis. There is mild FDG activity present throughout the gastrointestinal tract without a suspicious focal component. There is diverticulosis without evidence of diverticulitis. The hollow viscera are otherwise unremarkable. The liver, gallbladder, spleen comment kidneys, adrenal grams, and pancreas appear unremarkable. There is no retroperitoneal, mesenteric, pelvic or inguinal lymphadenopathy. The prostate gland is enlarged measuring 6 cm in greatest dimension. There is no abnormal FDG activity within the prostate gland. The pelvic organs are otherwise unremarkable. MUSCULOSKELETAL: There are no foci of abnormal FDG activity in the osseous structures. There are mild degenerative changes in the spine. There is anterior wedging of the T7 vertebral body with no associated abnormal FDG activity an unchanged from prior studies. There is a mild thoracolumbar scoliosis with lumbar convexity to the left. No suspicious sclerotic or lytic lesions are visualized. VASCULAR: Diffuse vascular calcifications are present. Coronary stents or dense coronary calcifications are noted. There is ectasia of the infrarenal abdominal aorta measuring 2.2 cm in largest AP diameter. PET/PET CT fusion skull to thigh IMPRESSION: 1. There has been a complete metabolic response to therapy of the left upper lobe pulmonary mass visualized on the prior 02/24/[address] scan. Some soft tissue density persists at this site but there is no abnormal FDG activity. 2. No additional abnormalities suspicious for metastatic or other malignant lesions are noted. 3. Diffuse vascular calcifications including coronary calcifications or coronary stents are noted. 4. Ectasia of the infrarenal abdominal aorta.
== END 2022-08-25 12:03 | disposition home or self-care (01) ==
LOC: HO.PET 12:02
PROVIDERS: PCP Internal Medicine; Visit Provider Internal Medicine Medical Oncology
DX: Z13.89 Encounter for screening for other disorder (principal)

== ENCOUNTER 2022-11-04 14:05 | Outpatient (REF) | payer MEDICAID, SELFPAY ==
--- NOTE | ~2022-11-04 | CT_ITS ---
EXAMINATION: CT CHEST WITH CONTRAST CLINICAL INFORMATION: Small cell lung cancer. COMPARISON: PET/CT fusion skull to thigh 08/25/2022 TECHNIQUE: Multidetector volumetric CT imaging of the chest was obtained after the administration of 50 mL of Omnipaque 350 intravenous contrast without immediate adverse reactions. Axial MIP volume rendering provided. Sagittal and coronal reformatted images were obtained. This CT examination was performed using dose optimization techniques as appropriate, variously including the following: *Automated exposure control *Adjustment of mA and/or kV according to patient size (this includes techniques or standardized protocols for targeted exams where dose is matched to indication/reason for exam; i.e. extremities or head) *Use of iterative reconstruction technique DLP: 143 mGy-cm FINDINGS: DIRECTOR REGULATORY AFFAIRS: Well-inflated lungs. LUNGS: There is centrilobular emphysema with bullous changes in both upper lobes, slightly greater on the left side. There is an irregular-shaped nodule, medial left upper lobe adjacent to a small left upper lobe bulla, measuring 8 x 5 mm on axial slice 26/4 cm. Same lesion on previous study measured 1.3 x 0.6 cm on axial slice 187/2 on the PET/CT fusion scan 08/25/2022. It is stable. No additional pulmonary nodules visualized. There is chronic scarring or atelectasis in bilateral upper lobes. Minimal atelectatic changes seen in the right lung base. MEDIASTINUM: The thyroid lobes are symmetric and normal. The central trachea and the bronchi are widely patent. No abnormal size mediastinal or hilar lymph nodes seen. There is mild coronary artery calcifications present. No pericardial effusion seen. PLEURA: There is no pleural effusion. No pleural mass or thickening. AXILLA: There is a prominent left axillary 1.8 cm lymph node, axial image 18/3. Previously same lymph node measured 0.86 cm on previous exam 08/25/2022. Minimal increase in size. UPPER ABDOMEN: The liver is diffusely attenuated without focal lesion or intrahepatic ductal dilatation. Visualized spleen, pancreas and bilateral adrenal glands and gallbladder appear unremarkable. OSSEOUS STRUCTURES: There is mild compression deformity, T7 vertebra, of indeterminate age. No aggressive lytic or sclerotic process seen CT/CT chest w IV con IMPRESSION: Diffuse centrilobular emphysema with bullous changes of both upper lobes. Ill-defined nodule, left upper lobe medially, is stable. No additional new nodules seen. Atelectatic changes are stable. No abnormal mediastinal or hilar lymph nodes. Fleischner guidelines were followed.
[2022-11-04] MEDS: iohexoL 350 MG/ML 100 ML INFUS..BTL IV (14:39)
== END 2022-11-04 14:06 | disposition home or self-care (01) ==
LOC: HO.CT 14:05
PROVIDERS: Visit Provider Internal Medicine Medical Oncology
DX: C34.92 Malignant neoplasm of unspecified part of left bronchus or lung (principal)
CPT/HCPCS: 71260; Q9967

== ENCOUNTER → 2022-11-09 14:30 | Outpatient (BNVA) | payer MEDICAID, SELFPAY | PROVIDERS: PCP Internal Medicine; Visit Provider Orthopaedic Surgery | DX: M76.891 Other specified enthesopathies of right lower limb, excluding foot (principal); I25.10 Atherosclerotic heart disease of native coronary artery without angina pectoris; I10 Essential (primary) hypertension; Z95.5 Presence of coronary angioplasty implant and graft | CPT/HCPCS: 99212 ==

== ENCOUNTER 2023-02-01 10:53 | Outpatient (REF) | payer MEDICAID, SELFPAY ==
--- NOTE | ~2023-02-01 | CT_ITS ---
EXAMINATION: CT CHEST WITH CONTRAST CLINICAL INFORMATION: Follow-up lung cancer COMPARISON: Previous chest CT most recent October 2022 TECHNIQUE: Multidetector volumetric CT imaging of the chest was obtained after the administration of 65 mL of Omnipaque 350 intravenous contrast without immediate adverse reactions. Axial MIP volume rendering provided. Sagittal and coronal reformatted images were obtained. This CT examination was performed using dose optimization techniques as appropriate, variously including the following: *Automated exposure control *Adjustment of mA and/or kV according to patient size (this includes techniques or standardized protocols for targeted exams where dose is matched to indication/reason for exam; i.e. extremities or head) *Use of iterative reconstruction technique DLP: 122 mGy-cm FINDINGS: LUNGS: Severe emphysema with bullous changes. 6 x 10 mm slightly irregularly shaped spiculated left upper lobe nodule axial image 74 series 5. This is similar to previous exam. There is a 5 mm right upper lobe nodule axial image 94 series 5 that is stable. There are scattered areas of bronchial wall thickening. The lungs are otherwise clear. MEDIASTINUM: Normal heart size. Coronary artery calcification. No pericardial effusion. Small mediastinal and bilateral hilar lymph nodes. No enlarged lymph nodes. Normal caliber thoracic aorta. PLEURA: There is no pleural effusion. No pleural mass or thickening. AXILLA: Small bilateral axillary lymph nodes. No enlarged lymph nodes seen. UPPER ABDOMEN: Right adrenal nodule measures 2.8 x 3 cm axial image 58 series 3. It is decreased in size from 3.2 x 3.5 cm on previous exam. The liver is low in attenuation suggestive of fatty infiltration. Question colitis of the transverse colon. OSSEOUS STRUCTURES: Mild stable T7 vertebral body compression fracture. CT/CT chest w IV con IMPRESSION: Severe emphysema. Stable pulmonary nodules. Slight interval decrease in right adrenal lesion. Question colitis of the transverse colon. Fatty liver. Fleischner guidelines were followed. Findings will be communicated by the [place] work flow sign builder.
[2023-02-01] MEDS: iohexoL 350 MG/ML 100 ML INFUS..BTL 65 ML IV (12:02)
== END 2023-02-01 10:54 | disposition home or self-care (01) ==
LOC: HO.CT 10:53
PROVIDERS: PCP Internal Medicine; Visit Provider Internal Medicine Medical Oncology
DX: C34.92 Malignant neoplasm of unspecified part of left bronchus or lung (principal)
CPT/HCPCS: 71260; Q9967

== ENCOUNTER 2023-06-17 14:09 | Outpatient (AMB) | payer MEDICAID, SELFPAY ==
--- NOTE | 2023-06-17 14:13 | A.OFFVIS_ITS ---
Intake Vital Signs 06/17/23 14:15 Height 6 ft 1.5 in Weight 169 lb 12.095 oz BMI 22.1 BP 130/84 Blood Pressure Location Lt brachial Position Sitting Pulse 61 Intake Visit Reasons: NPV/Abnormal echo/ Lung CA/ Juan Intake Note: NPV w/ EKG Facility Environmental Technician Required: No Allergies bee pollen [bee stings] Allergy (Verified 06/17/23 14:13) Swelling Medication List - Last Reconciled 06/17/23 by Alfred Ac MD acetaminophen 2 tabs PO Q12H PRN atorvastatin 80 mg PO DAILY baclofen 10 mg PO TID PRN [id number]-[id number] 3.5-0.2-69-16.5 % 1 appl topical DAILY cholecalciferol (vitamin D3) (Vitamin D3) 1 cap PO DAILY diphenhydramine HCl (Benadryl) 25 mg PO TID PRN loratadine 10 mg PO QAM metoprolol succinate ER 25 mg PO DAILY morphine ER (MS Contin) 30 mg PO Q12H morphine ER (MS Contin) 30 mg PO Q12H pantoprazole 40 mg PO DAILY HPI HPI Comments History of Present Illness Details Javier is here for consultation regarding abnormal echocardiogram. It had shown a PFO but otherwise fairly unremarkable. He has lung cancer being treated by Dr. Martinez. From a cardiac standpoint, he has a history of LAD as well as remote stenting from 2018. He has residual stenosis in the RCA that is being medically managed. However, he does not see any scalp treatment specialist actively. He states he generally doing fine. He is getting tired more than usual because of the cancer but otherwise no cardiac symptoms like angina. He can do most of his activities without any limitations according to him. [facility] Medical History (Updated 06/17/23 @ 14:33 by Alfred Ac MD) Periodontal disease Centrilobular emphysema Coronary artery disease involving [place] heart without angina pectoris Emphysema, unspecified CAD (coronary artery disease) Osteopenia Oral-nasal fistula GERD (gastroesophageal reflux disease) Surgical History History of heart artery stent Family History Father Cancer of prostate Social History Household Members: Family Housing: House Are you a primary managed care analyst to a significant other at home: No Do you presently have visiting nurse or other home services: No Alcohol intake: never Patient Tobacco Use Status: Current everyday Tobacco user Tobacco use type: Cigarette Second Hand Smoke Exposure: No Substance Use Type: Marijuana service: No Current occupational status: unemployed Review of Systems Const Denies chills, Denies daytime sleepiness, Denies fatigue, Denies fever(s), Denies frequent falls, Denies night sweats, Denies snoring, Denies weakness, Denies weight gain and Denies weight loss Eyes Denies loss of vision ENT Denies dizziness and Denies hearing loss Card Denies chest pain with activity, Denies syncope, Denies rapid heart rate, Denies edema, Denies claudication, Denies leg edema, Denies lightheadedness, Denies palpitations, Denies dyspnea, Denies dyspnea on exertion and Denies orthopnea Resp Denies cough, Denies excessive phlegm production, Denies dyspnea, Denies dyspnea on exertion, Denies snoring and Denies wheezing GI Denies abdominal pain, Denies hematochezia, Denies change in bowel habits, Denies change in stool character, Denies heartburn, Denies nausea and Denies vomiting Denies hematuria, Denies dysuria and Denies urinary frequency Musc Denies arthralgias, Denies muscle weakness, Denies numbness and Denies tingling Skin/Breast Denies nail changes and Denies rash Neuro Denies Abnormal speech present, Denies dizziness, Denies syncope, Denies frequent falls, Denies loss of vision, Denies memory loss, Denies numbness, Denies tingling and Denies weakness Psych Denies depression and Denies memory loss Endo Denies fatigue and Denies palpitations Aller/Immun Denies wheezing Physical Exam Vital Signs: Last Vital Signs Pulse 61 06/17/23 14:15 BP 130/84 06/17/23 14:15 BMI result Body Mass Index 22.1 Const General: comfortable and no acute distress Orientation/consciousness: patient oriented x3 HEENT Other: Unremarkable Head: Yes normal to inspection Neck Neck: Yes normal visual inspection Chest Chest palpation & inspection: normal inspection of the chest Resp Auscultation: clear to auscultation bilaterally Cardio Palpation: normal PMI Heart sounds: S1 normal heart sound present, S2 normal heart sound present, no gallops, no murmurs and no rubs GI Palpation (GI): Soft to palpation Back/Spine/Pelvis Other: unremarkable Skin General skin exam: no rashes or lesions noted Neuro General: patient oriented x3 Speech: No Abnormal speech present Extrem General: Yes normal to inspection Psych Mental Status: mental status grossly normal Office Procedures EKG Details: EKG with sinus rhythm at 61/Min; no significant ST-T changes and otherwise unremarkable. [place]. [id number], Complete Assessment & Plan Assessment & Plan (1) CAD (coronary artery disease): Code(s): I25.10 - Atherosclerotic heart disease of [place] coronary artery without angina pectoris Qualifiers: Coronary Disease-Associated Artery/Lesion type: [place] artery [place] vs. transplanted heart: [place] heart Associated angina: without angina Qualified Code(s): I25.10 - Atherosclerotic heart disease of [place] coronary artery without angina pectoris Plan: Cardiac catheterization data reviewed. He has had stents to LAD as well as ramus from around 2018. He had another cardiac catheterization 2020 that showed patent stent in the LAD; mild InStent restenosis in the ramus and 80% mid RCA stenosis. Clinically, he has got absolutely no angina. Hence no ischemia workup needed at this time. He can continue the high-dose statins. Will need to get the lipids from his PCP. Start aspirin. He is also on beta-blockers and that can be continued. LVEF is preserved on echocardiogram. (2) PFO (patent foramen ovale): Code(s): Q21.12 - Patent foramen ovale Plan: Mobile interatrial septum with small PFO with [id number]-wxemr shunting. Discussed about this with the patient. No specific implications. May take aspirin as above. Medications: New aspirin (Enteric Coated Aspirin) 81 mg PO DAILY 90 tabs 3RF Coding Level of Care Code New Pt Level 4 (12340) Diagnoses Coronary artery disease involving [place] coronary artery of [place] heart without angina pectoris I25.10 Coronary Disease-Associated Artery/Lesion type: [place] artery [place] vs. transplanted heart: [place] heart Associated angina: without angina PFO (patent foramen ovale) Q21.12 CPT Codes EKG - CPT: 34609-[id number], Complete ([id number])
[2023-06-17 14:15] VITALS: BP 130/84; PULSE 61; BMI 22.1
== END 2023-06-17 14:32 | disposition home or self-care (01) ==
PROVIDERS: PCP Internal Medicine; Visit Provider Internal Medicine
DX: I25.10 Atherosclerotic heart disease of native coronary artery without angina pectoris (principal); Q21.12 Patent foramen ovale
CPT/HCPCS: 93010; 99204

== ENCOUNTER → 2023-06-17 14:09 | Outpatient (BNVA) | payer MEDICAID, SELFPAY | PROVIDERS: PCP Internal Medicine; Visit Provider Internal Medicine | DX: I25.10 Atherosclerotic heart disease of native coronary artery without angina pectoris (principal); Q21.12 Patent foramen ovale | CPT/HCPCS: 93005; 99202 ==

== ENCOUNTER 2023-08-03 08:28 | Outpatient (REF) | payer MEDICAID, SELFPAY ==
--- NOTE | ~2023-08-03 | CT_ITS ---
EXAMINATION: CT CHEST WITH CONTRAST CLINICAL INFORMATION: Follow-up lung cancer COMPARISON: Previous CTs, most recent, 02/01/2023 TECHNIQUE: Multidetector volumetric CT imaging of the chest was obtained after the administration of 65 mL of Omnipaque 350 intravenous contrast without immediate adverse reactions. Axial MIP volume rendering provided. Sagittal and coronal reformatted images were obtained. This CT examination was performed using dose optimization techniques as appropriate, variously including the following: *Automated exposure control *Adjustment of mA and/or kV according to patient size (this includes techniques or standardized protocols for targeted exams where dose is matched to indication/reason for exam; i.e. extremities or head) *Use of iterative reconstruction technique DLP: 109 mGy-cm FINDINGS: HIDE AND SKIN CLASSER: No acute cardiopulmonary disease. LUNGS: Emphysema and bullous changes again identified. Increasing bibasilar atelectasis. Trachea and bronchi are patent. Diffuse bronchial wall thickening. 4 mm nodular density identified anterior left mainstem bronchus, 6:86. No change 6 x 10 mm medial left upper lobe spiculated nodule, 6:68. Stable 5 mm RUL nodule, 6:78 MEDIASTINUM: Unremarkable thyroid. No change nonspecific mediastinal lymph nodes. Nonenlarged heart. No pericardial effusion. Degree of coronary calcifications: Severe. Nonaneurysmal aorta. Nonenlarged pulmonary arteries. PLEURA: There is no pleural effusion. No pleural mass or thickening. AXILLA: Nonspecific axillary lymph nodes. UPPER ABDOMEN: Diffuse hypodensity to liver parenchyma. Too small to characterize right hepatic hypodensity, likely cyst. Lobulated 2.7 cm right adrenal gland not significantly changed in size from most recent study having shown decrease from previous. Interval developing right adrenal calcification 5:182. OSSEOUS STRUCTURES: No change mid dorsal compression deformity. No suspicious osseous lesions. CT/CT chest w IV con IMPRESSION: No change 10 mm left upper lobe spiculated and 5 mm right upper lobe pulmonary nodules. 4 mm nodule anterior left mainstem bronchus, question debris, endobronchial lesion not excluded. Attention on follow-up. Stable size 2.7 cm right adrenal lesion with interval development of calcification. Redemonstration emphysema and bullous changes. Increasing basilar atelectasis. Fleischner guidelines were followed.
[2023-08-03] MEDS: iohexoL 350 MG/ML 100 ML INFUS..BTL IV (08:59)
== END 2023-08-03 08:29 | disposition home or self-care (01) ==
LOC: HO.CT 08:28
PROVIDERS: PCP Internal Medicine; Visit Provider Internal Medicine Medical Oncology
DX: C34.92 Malignant neoplasm of unspecified part of left bronchus or lung (principal)
CPT/HCPCS: 71260; Q9967

== ENCOUNTER 2023-12-22 13:52 | Outpatient (AMB) | payer MEDICAID, SELFPAY ==
--- NOTE | 2023-12-22 13:56 | MHC.OFFVIS ---
Vital Signs 12/22/23 13:57 Height 6 ft 1.5 in Weight 174 lb 2.643 oz BMI 22.7 BP 120/78 Blood Pressure Location Lt brachial Position Sitting Pulse 68 Intake Visit Reasons: 6 month follow up Intake Note: 6 month follow-up c/o some palliation since restarting amlodipine Retort Loader Required: No Allergies bee pollen [bee stings] Allergy (Verified 07/23/23 09:48) Swelling Medication List - Last Reconciled 12/22/23 by Alfred Ac MD acetaminophen 2 tabs PO Q12H PRN amlodipine 5 mg PO DAILY aspirin (Enteric Coated Aspirin) 81 mg PO DAILY atorvastatin 80 mg PO DAILY cholecalciferol (vitamin D3) (Vitamin D3) 1 cap PO DAILY loratadine 10 mg PO QAM metoprolol succinate ER 25 mg PO DAILY morphine ER (MS Contin) 30 mg PO Q12H pantoprazole 40 mg PO DAILY HPI Comments Details: Javier returns for follow-up. He has a history of coronary artery disease as well as PFO. He has lung cancer being treated by Dr. Martinez. Overall, he is doing good. No specific cardiac concerns. Unfortunately, he is still smoking. [facility] Medical History (Updated 12/22/23 @ 14:16 by Alfred Ac MD) Essential hypertension Periodontal disease Centrilobular emphysema Coronary artery disease involving [place] heart without angina pectoris Emphysema, unspecified CAD (coronary artery disease) Osteopenia Oral-nasal fistula GERD (gastroesophageal reflux disease) Surgical History History of heart artery stent Family History Father Cancer of prostate Social History Household Members: Family Housing: House Are you a primary laboratory animal caretaker to a significant other at home: No Do you presently have visiting nurse or other home services: No Alcohol intake: never Patient Tobacco Use Status: Current everyday Tobacco user Tobacco use type: Cigarette Second Hand Smoke Exposure: No Substance Use Type: Marijuana service: No Current occupational status: unemployed Review of Systems Const Denies chills, Denies fatigue, Denies fever(s), Denies frequent falls, Denies weakness, Denies weight gain and Denies weight loss ENT Denies dizziness Card Denies chest pain, Denies leg edema, Denies lightheadedness, Denies palpitations, Denies dyspnea, Denies dyspnea on exertion, Denies orthopnea and Denies other (loss of consciousness) Resp Denies cough, Denies dyspnea and Denies dyspnea on exertion GI Denies hematochezia and Denies change in stool character Musc Denies abnormal gait, Denies muscle weakness, Denies numbness, Denies radiating pain into limb and Denies tingling Neuro Denies abnormal gait, Denies dizziness, Denies frequent falls, Denies numbness, Denies tingling and Denies weakness Endo Denies fatigue and Denies palpitations Physical Exam Vital Signs: Last Vital Signs Pulse 68 12/22/23 13:57 BP 120/78 12/22/23 13:57 BMI result Body Mass Index 22.7 Const General: comfortable and no acute distress Orientation/consciousness: patient oriented x3 HEENT Other: Unremarkable Head: Yes normal to inspection Neck Neck: Yes normal visual inspection Chest Chest palpation & inspection: normal inspection of the chest Resp Auscultation: clear to auscultation bilaterally Cardio Palpation: normal PMI Heart sounds: S1 normal heart sound present, S2 normal heart sound present, no gallops, no murmurs and no rubs GI Palpation (GI): Soft to palpation Back/Spine/Pelvis Other: unremarkable Skin General skin exam: no rashes or lesions noted Neuro General: patient oriented x3 Extrem General: Yes normal to inspection Psych Mental Status: mental status grossly normal Assessment & Plan Assessment & Plan (1) CAD (coronary artery disease): Code(s): I25.10 - Atherosclerotic heart disease of [place] coronary artery without angina pectoris Category: Medical Qualifiers: Associated angina: without angina Coronary Disease-Associated Artery/Lesion type: [place] artery [place] vs. transplanted heart: [place] heart Qualified Code(s): I25.10 - Atherosclerotic heart disease of [place] coronary artery without angina pectoris Plan: Cardiac catheterization data reviewed. He has had stents to LAD as well as ramus from around 2018. He had another cardiac catheterization 2019 that showed patent stent in the LAD; mild InStent restenosis in the ramus and 80% mid RCA stenosis. Clinically, absolutely no cardiac symptoms like angina. Continue aspirin, beta-blockers, statins. Will order lipids. (2) Essential hypertension: Code(s): I10 - Essential (primary) hypertension Category: Medical Plan: On Amlodipine. Stable. (3) PFO (patent foramen ovale): Code(s): Q21.12 - Patent foramen ovale Category: Medical Plan: Mobile interatrial septum with small PFO with [id number] shunting. No specific implications. Already on aspirin. (4) Smoking: Code(s): F17.200 - Nicotine dependence, unspecified, uncomplicated Category: Social Hx Plan: Discussed about smoking cessation. He is got multiple reasons to quit smoking including coronary disease as well as lung cancer. However, he states it is very hard for him to do this and he keeps trying. Orders: Orders CA echo transthoracic complete Today C34.92 - Malignant neoplasm of unspecified part of left bronchus or lung, I25.10 - Atherosclerotic heart disease of [place] coronary artery without angina pectoris Lipid Panel Today E78.5 - Hyperlipidemia, unspecified Coding Level of Care Code Est Pt Level 4 (90000) Diagnoses Coronary artery disease involving [place] coronary artery of [place] heart without angina pectoris I25.10 Associated angina: without angina Coronary Disease-Associated Artery/Lesion type: [place] artery [place] vs. transplanted heart: [place] heart Essential hypertension I10 PFO (patent foramen ovale) Q21.12 Smoking F17.200
[2023-12-22 13:57] VITALS: BP 120/78; PULSE 68; BMI 22.7
== END 2023-12-22 14:25 | disposition home or self-care (01) ==
PROVIDERS: PCP Internal Medicine; Visit Provider Internal Medicine
DX: I25.10 Atherosclerotic heart disease of native coronary artery without angina pectoris (principal); I10 Essential (primary) hypertension; Q21.12 Patent foramen ovale; F17.200 Nicotine dependence, unspecified, uncomplicated
CPT/HCPCS: 99214

== ENCOUNTER → 2023-12-22 13:52 | Outpatient (BNVA) | payer MEDICAID, SELFPAY | PROVIDERS: PCP Internal Medicine; Visit Provider Internal Medicine | DX: I25.10 Atherosclerotic heart disease of native coronary artery without angina pectoris (principal); I10 Essential (primary) hypertension; Q21.12 Patent foramen ovale; F17.200 Nicotine dependence, unspecified, uncomplicated | CPT/HCPCS: 99212 ==

== ENCOUNTER → 2024-01-10 12:45 | Outpatient (REF) | payer MEDICAID, SELFPAY ==
--- NOTE | 2024-01-10 12:47 | CA_ITS ---
Transthoracic Echocardiogram Patient (Last, First, Middle): Javier Soni A Gender: Male Date of : 1965 Age: 58 Procedure Date: 01/10/2024 Procedure Type: Transthoracic Echocardiogram Location: OP Height: 185.42 cm Weight: 81.19 kg BSA: 2.05 m2 Heart Rate: 66 bpm BP: 120 / 74 mmHg Batter Mixer Helper: SB Referring MD: Alfred Ac MD Symptoms: I25.10 - Atherosclerotic heart disease of [place] coronary artery without... Study Quality: Adequate ECG Rhythm: Sinus Conclusions: - The left ventricular systolic function is mildly decreased. The calculated ejection fraction is 51% by biplane method. - The inferolateral wall is hypokinetic. - No obvious valvular pathology seen on this study. Findings Left Ventricle Normal left ventricular cavity size. There is normal left ventricular wall thickness. The left ventricular systolic function is mildly decreased. The calculated ejection fraction is 51% by biplane method. There is no evidence of regional wall motion abnormalities. Diastolic function is normal for age. LV peak GLS -17.4%. Wall Motion Rest Echo Findings The inferolateral wall is hypokinetic. Right Ventricle Normal right ventricular cavity size and systolic function. Atria Both atria are normal in size. Aortic Valve There is a normal trileaflet aortic valve. There is no aortic valve stenosis. There is no aortic valve regurgitation. Mitral Valve The mitral valve appears normal. There is no mitral valve regurgitation. There is no mitral valve stenosis. Pulmonic Valve The pulmonic valve is likely normal. Tricuspid Valve There is no tricuspid valve regurgitation. Tricuspid regurgitation envelope is inadequate for calculation of right ventricular systolic pressure. Great Vessels The asc aorta is normal in size. Venous The inferior vena cava is normal in size and collapses greater than 50% with inspiration. Pericardium/Pleural There is no evidence of pericardial effusion. Prior Study Comparison Changes noted compared to prior study dated: 03/13/2022. LVEF slightly lower than previously reported; but overall similar to earlier study 08/04/2019. Recommendations, Care & Conclusions No obvious valvular pathology seen on this study. Measurements 2D Linear Measurements IVSd: 0.75 0.6-0.9/0.6-1.0 cm LVIDd: 5.10 3.9-5.3/4.2-5.9 cm LVIDd Index: 2.49 2.4-3.2/2.2-3.1 cm/m2 LVIDs: 3.68 2.0-3.6 cm LVPWd: 0.89 0.7-1.1 cm LA Diam: 3.90 2.7-3.8/3.0-4.0 cm LAIDs Index: 1.90 1.5-2.3 cm/m2 LV Mass: 181.18 67-162/88-224 g LV Mass Index: 88.38 43-95/49-115 g/m2 LVOT Diam: 2.40 3.0+(-)1.3 cm 2D Systolic Function EF 4C: 54.40 >55% EF 2C: 46.10 >55% EF BiP: 51.00 >55% Mitral Valve MV Pk E: 0.80 MV PK A: 0.89 MV Decel Time: 166.00 E/A: 0.90 E'Lateral: 9.46 E'Medial: 6.31 E/E' Med: 12.60 E/E' Lat: 8.40 PHT: 49.00 MVA PHT: 4.49 Decel [place]: 4.79 Aortic Valve AoV Pk [place]: 1.30 AoV Pk Grad: 7.00 XANDER: 4.52 LVOT LVOT Pk Sonido: 1.30 LVOT Mn [place]: 0.91 LVOT VTI: 0.25 LVOT Pk Grad: 7.00 LVOT Mn Grad: 4.00 LVOT Diam: 2.40 LVOT Area: 4.52 Diastolic Function MV Pk E: 0.80 MV Pk A: 0.89 E/A: 0.90 E'Medial: 6.31 E/E' Med: 12.60 E' Laterial: 9.46 E/E' Lat: 8.40 Right Ventricle TAPSE (mm): 24.80 TVS' Sonido: 12.70 Tricuspid Valve RA Press: 3.00 Great Vessels Aorta Sinus of Valsalva: 3.80 2.0-3.5 cm Ao Asc: 3.60 2.1-3.4 cm Pulmonary Valve PV Pk Son[place]: 0.98 Peak PV Grad: 4.00 Updated in Other Vendor System with Status of Final Alfred Ac MD electronically signed on 01/12/2024 11:52:36 AM with status of Final
== END ==
LOC: HO.CARD 12:45
PROVIDERS: PCP Internal Medicine; Visit Provider Internal Medicine
DX: I25.10 Atherosclerotic heart disease of native coronary artery without angina pectoris (principal); C34.92 Malignant neoplasm of unspecified part of left bronchus or lung
CPT/HCPCS: 93306; 93356

== ENCOUNTER → 2024-01-10 12:47 | Outpatient (BNV) | payer MEDICAID, SELFPAY | PROVIDERS: PCP Internal Medicine; Visit Provider Internal Medicine | DX: I25.10 Atherosclerotic heart disease of native coronary artery without angina pectoris (principal) | CPT/HCPCS: 93306; 93356 ==

== ENCOUNTER 2024-02-10 11:00 | Outpatient (REF) | payer MEDICAID, SELFPAY ==
--- NOTE | ~2024-02-10 | CT_ITS ---
EXAMINATION: CT CHEST WITH CONTRAST CLINICAL INFORMATION: Follow-up on [id number] lung carcinoma COMPARISON: Chest CT dated 08/03/2023 TECHNIQUE: Multidetector volumetric CT imaging of the chest was obtained after the administration of 50 mL of Omnipaque 350 intravenous contrast without immediate adverse reactions. Axial MIP volume rendering provided. Sagittal and coronal reformatted images were obtained. This CT examination was performed using dose optimization techniques as appropriate, variously including the following: *Automated exposure control *Adjustment of mA and/or kV according to patient size (this includes techniques or standardized protocols for targeted exams where dose is matched to indication/reason for exam; i.e. extremities or head) *Use of iterative reconstruction technique DLP: 238 mGy-cm FINDINGS: LUNGS: Severe centrilobular and paraseptal emphysema and extensive bullous changes are again seen. Increase in size of right middle lobe nodule measuring 5 x 3 mm, previously measured 4 x 2 mm (5:287). Stable 9 x 7 mm spiculated nodule in the left upper lobe (5:149). Stable 6 mm nodule in the right upper lobe (5:181). Apparent nodular opacity in the lingula is not reproducible on coronal and sagittal images, where it appears to be a linear area of atelectasis (5:388). Subsegmental atelectasis in the posterior bilateral lower lobes, greater on the right. The 4 mm nodular density in the anterior left mainstem bronchus is not visualized on this study and likely represented debris. MEDIASTINUM: The mediastinum is normal. PLEURA: There is no pleural effusion. No pleural mass or thickening. AXILLA: No lymphadenopathy. UPPER ABDOMEN: The liver is diffusely low in attenuation in keeping with hepatic steatosis. No significant change in the right adrenal mass measuring 3.4 x 1.9 cm, previously measured 3.2 x 2.2 cm. OSSEOUS STRUCTURES: Unchanged anterior compression deformity of T7. No destructive osseous lesions. CT/CT chest w IV con IMPRESSION: 1. Stable severe emphysema and extensive bullous changes. 2. Increase in size of 5 mm right middle lobe pulmonary nodule, previously measured 4 mm. Recommend short interval follow-up with chest CT in 3 months. 3. Stable 6 mm right upper lobe nodule and spiculated 9 mm left upper lobe nodule. 4. Hepatic steatosis. 5. Stable right adrenal mass measuring 3.4 cm. Fleischner guidelines were followed.
[2024-02-10] MEDS: iohexoL 350 MG/ML 100 ML INFUS..BTL 65 ML IV (11:36)
== END 2024-02-10 11:01 | disposition home or self-care (01) ==
LOC: HO.CT 11:00
PROVIDERS: PCP Internal Medicine; Visit Provider Internal Medicine Medical Oncology
DX: C34.92 Malignant neoplasm of unspecified part of left bronchus or lung (principal)
CPT/HCPCS: 71260; Q9967

== ENCOUNTER 2024-04-13 15:07 | Outpatient (AMB) | payer MEDICAID, SELFPAY ==
--- NOTE | 2024-04-13 15:13 | MHC.OFFVIS ---
Vital Signs 04/13/24 15:17 Height 6 ft 1.5 in Weight 181 lb BMI 23.6 BP 140/78 H Blood Pressure Location Lt brachial Position Sitting Pulse 78 Pulse Source Pulse Oximeter Pulse Oximetry (%) 96 Oxygen Delivery Method Room Air Intake Visit Reasons: LT Hand pain/swelling/Dr. Martinez REf [facility] Hem Intake Note: Patient is a new patient referred by Dr. Martinez for hand pain/swelling. Allergies bee pollen [bee stings] Allergy (Verified 04/13/24 15:18) Swelling Medication List - Last Reconciled 04/13/24 by Sussy Fernandez MD acetaminophen 2 tabs PO Q12H PRN amlodipine 5 mg PO DAILY aspirin (Enteric Coated Aspirin) 81 mg PO DAILY atorvastatin 80 mg PO DAILY cholecalciferol (vitamin D3) (Vitamin D3) 1 cap PO DAILY diphenhydramine HCl 25 mg PO TID PRN loratadine 10 mg PO QAM metoprolol succinate ER 25 mg PO DAILY morphine ER (MS Contin) 30 mg PO Q12H pantoprazole 40 mg PO DAILY HPI Comments Details: Patient is a 58-year-old male with metastatic lung cancer, poorly differentiated carcinoma on pembrolizumab therapy who presents for evaluation of hand pain. With respect to his cancer history: CT chest with contrast performed 02/12/2022 revealed lobulated mass in the left upper lobe measuring 3.4 x 1.8 cm adjacent to nodule in the left upper lobe. Prominent left mediastinal lymph nodes, enlarged left axillary lymph node measuring 1.3 cm, evidence of severe emphysema, stable 6.9 x 8.2 cm right adrenal mass. Core biopsy of right adrenal mass on 02/09/2022 revealed poorly differentiated carcinoma, IHC positive for CK7. Chemotherapy regimen: Pembrolizumab started 03/13/22. Last cycle 04/06/2024 Recent hematology/oncology notes reviewed (03/16/24, Provider: Demetrio Martinez). Patient noted to be tolerating his Keytruda and is overall stable. He now comes to rheumatology for evaluation of hand pain. However patient specifically states that he has left 4th PIP pain as well as right hip pain. He recently had an MRI of his right hip with and without contrast which did not show any evidence of metastatic disease. There was evidence of gluteus medius calcific tendonitis with mild gluteus medius and minimus tendinosis. We when asked patient denies prolonged morning stiffness, dactylitis, new or worsening rashes, and photosensitivity. Overall he states he feels well and is able to perform his acts of daily living. He has been using topical diclofenac gel which helps a little bit but does not completely relieve the pain [facility] Medical History (Updated 04/13/24 @ 15:56 by Sussy Fernandez MD) Greater trochanteric bursitis of right hip Essential hypertension Periodontal disease Centrilobular emphysema Coronary artery disease involving [place] heart without angina pectoris Emphysema, unspecified CAD (coronary artery disease) Osteopenia Oral-nasal fistula GERD (gastroesophageal reflux disease) Surgical History History of heart artery stent Family History Father Cancer of prostate Social History Household Members: Family Housing: House Are you a primary transitional care liaison to a significant other at home: No Do you presently have visiting nurse or other home services: No Alcohol intake: never Patient Tobacco Use Status: Current everyday Tobacco user Tobacco use type: Cigarette Second Hand Smoke Exposure: No Substance Use Type: Marijuana service: No Current occupational status: unemployed Review of Systems Const Details: Review of Systems Constitutional: Denies fever, chills, weight loss ENT: Denies vision changes, eye pain or eye redness, dental caries, dry mouth GI: Denies nausea, vomiting, diarrhea, abdominal pain, change in BM Pulm: Denies SOB, DONATO, hemoptysis, wheezing Cards: Denies chest pain, palpitations Skin: Denies Raynaud's, rash, nail changes, photosensitivity, [employer]IAN: Denies headaches, weakness, paresthesias, recurrent falls MSK: See HPI All other systems reviewed and are unremarkable except noted above Physical Exam Const Other: Physical Examination Patient well appearing and in no apparent painful distress Able to rise from chair without support. ?Gait normal. Constitutional: ?Mucous membranes pink and moist patient alert and cooperative Resp: ?Normal respiratory effort and able to speak in complete sentences. ?Clear to auscultation bilaterally. ?No crackles, rales, rhonchi, wheezes heard. Cards: ?Regular rate and rhythm. ?S1 and S2 heard no murmurs MSK: ?No deformity, swelling, abnormalities noted to bilateral hands. ?No evidence of synovitis. He had some mild tenderness to palpation of the left 4th PIP but no obvious swelling or redness. Tenderness to palpation of right greater trochanter. Office Procedures Joint Injection/Aspiration Joint Injection/Aspiration Details: Procedure was explained to the patient and consent was obtained. ? The area of interest was identified and confirmed with patient. ?This was subsequently cleaned with chlorhexidine x3. ? The area was then anesthetized using ethyl chloride spray. 40 mg Kenalog with 1 cc 1% lidocaine was injected without issue. ?Minimal to no bleeding. ?Patient tolerated procedure. Primary Site: other (Right greater trochanter) Prep: site was prepped using aseptic technique and ethochloride spray was applied Injected: 40 mg of, Kenalog and 1% plain lidocaine Approach Used: other (Lateral) Procedure: The patient tolerated the procedure well Coding 55576 - Glenohumeral/Tronchanteric Bursa/Intraarticular Procedure code (CPT) selection complete Results Reviewed Results Reviewed: Right hip MRI imaging reviewed showing gluteus medius calcific tendinitis with mild gluteus medius and minimus tendinosis. No evidence of metastatic disease to the bone. 07/2022 IMPRESSION: 1. Nondisplaced undersurface tear of the anterosuperior labrum. 2. Mild right hip arthrosis. No stress reaction, fracture, or avascular necrosis. No evidence of metastatic disease. 3. Gluteus medius calcific tendinitis with mild gluteus medius and minimus tendinosis. Laboratory Tests 04/06/24 10:22 WBC 8.2 RBC 5.18 Hgb 14.8 Hct 46.0 MCV 88.8 MCH 28.6 Plt Count 245 Sodium 140 Potassium 4.4 Chloride 107 Carbon Dioxide 27 BUN 12 Creatinine 1.00 Total Bilirubin 0.3 AST 20 ALT 32 Alkaline Phosphatase 121 H Total Protein 7.6 Albumin 4.1 Assessment & Plan Assessment & Plan (1) Greater trochanteric bursitis of right hip: Code(s): M70.61 - Trochanteric bursitis, right hip Category: Medical Plan: #Right greater tronchanteric bursitis Status post steroid injection today. Discussed conservative measures such as ice and continue use of topical diclofenac. (2) History of immune checkpoint inhibitor therapy: Code(s): Z92.26 - Personal history of immune checkpoint inhibitor therapy Plan: #Current Use of Checkpoint inhibitor Patient currently on pembrolizumab for treatment of metastatic cancer. Check point inhibitors are well known to induce an autoimmune inflammatory arthritis. However today I do not think that this patient has autoimmune inflammatory arthritis. He does not have prolonged morning stiffness, she does not have any active synovitis on exam, and there is no evidence of any other signs or symptoms of connective tissue disease. Discuss the signs and symptoms to look out for especially since he has been on a checkpoint inhibitor for some time. We will not pursue any further diagnostic workup at this time. Plan I spent 35 minutes reviewing the record and labs/imaging, seeing the patient, performing procedures discussing the treatment plan and documenting in the medical record Orders: Orders AMB Joint Injection/Aspiration Today M70.61 - Trochanteric bursitis, right hip Coding Level of Care Code New Pt Level 3 (55251) Diagnoses Greater trochanteric bursitis of right hip M70.61 History of immune checkpoint inhibitor therapy Z92.26 CPT Codes Coding - Joint 7: 36823 - Glenohumeral/Tronchanteric Bursa/Intraarticular ([id number])
[2024-04-13 15:17] VITALS: BP 140/78; PULSE 78; O2SAT 96; BMI 23.6
== END 2024-04-13 16:13 | disposition home or self-care (01) ==
PROVIDERS: PCP Internal Medicine; Referring Provider Internal Medicine; Visit Provider Student in an Organized Health Care Education/Training Program
DX: M70.61 Trochanteric bursitis, right hip (principal); Z92.26 Personal history of immune checkpoint inhibitor therapy
CPT/HCPCS: 20610; 99203

== ENCOUNTER → 2024-04-13 15:07 | Outpatient (BNVA) | payer MEDICAID, SELFPAY | PROVIDERS: PCP Internal Medicine; Visit Provider Student in an Organized Health Care Education/Training Program | DX: M70.61 Trochanteric bursitis, right hip (principal); M79.642 Pain in left hand; Z92.26 Personal history of immune checkpoint inhibitor therapy | CPT/HCPCS: 20610; 99202 ==

== ENCOUNTER 2024-07-06 08:27 | Outpatient (REF) | payer MEDICAID, SELFPAY ==
[2024-07-06] MEDS: iohexoL 350 MG/ML 75 ML INFUS..BTL 65 ML IV (09:18)
== END 2024-07-06 08:28 | disposition home or self-care (01) ==
LOC: HO.CT 08:27
PROVIDERS: PCP Internal Medicine; Visit Provider Internal Medicine Medical Oncology
DX: C34.92 Malignant neoplasm of unspecified part of left bronchus or lung (principal)
CPT/HCPCS: 71260; Q9967

== ENCOUNTER → 2024-07-06 08:33 | Outpatient (BNV) | payer MEDICAID, SELFPAY | PROVIDERS: PCP Internal Medicine; Visit Provider Radiology Diagnostic Radiology | DX: C34.92 Malignant neoplasm of unspecified part of left bronchus or lung (principal); J43.2 Centrilobular emphysema | CPT/HCPCS: 71260 ==

== ENCOUNTER → 2024-10-06 15:09 | Outpatient (BNV) | payer MEDICAID, SELFPAY | PROVIDERS: PCP Internal Medicine; Visit Provider Internal Medicine Cardiovascular Disease | DX: I42.8 Other cardiomyopathies (principal); I77.810 Thoracic aortic ectasia | CPT/HCPCS: 93306 ==

== ENCOUNTER → 2024-10-06 15:18 | Outpatient (REF) | payer MEDICAID, SELFPAY ==
--- NOTE | 2024-10-06 15:09 | CA_ITS ---
Transthoracic Echocardiogram Patient (Last, First, Middle): Javier Soni A Gender: Male Date of : 1965 Age: 58 Procedure Date: 10/06/2024 Procedure Type: Transthoracic Echocardiogram Location: OP Height: 185.42 cm Weight: 81.65 kg BSA: 2.06 m2 Heart Rate: bpm BP: 120 / [address] Supervisor: YAMILETH Referring MD: Nabil Lira MD Technical Administrative Assistant: Bebeto Edouard MD Symptoms: I25.10 CAD W/O ANGINA Study Quality: Adequate ECG Rhythm: Sinus Conclusions: - 1. Normal LV ejection fraction of 65-70% with impaired relaxation filling pattern 2. Cardiac valvular Dopplers within normal limits 3. Mildly dilated ascending aorta at 4 cm 4. No gross pericardial effusion Findings Left Ventricle Normal left ventricular size, thickness, and systolic function. The visually estimated ejection fraction is between 65-70%. Spectral Doppler is indicative of an impaired relaxation filling pattern. E/E prime ratio is between 8 and 15 consistent with indeterminate filling pressures. Wall Motion Rest Echo Findings The basal inferoseptal and basal inferolateral segments are hypokinetic. All other scored wall segments showed normal motion. Right Ventricle Normal right ventricular cavity size and systolic function. Atria The left atrium is likely dilated. There is no evidence of interatrial shunt. The right atrium is normal in size. Aortic Valve Normal aortic valve structure and function. There is no aortic valve stenosis. There is no aortic valve regurgitation. Mitral Valve Normal mitral valve structure and function. There is trace mitral valve regurgitation. There is no mitral valve stenosis. Pulmonic Valve The pulmonic valve was not well visualized. Tricuspid Valve Likely normal tricuspid valve structure and function. Tricuspid regurgitation envelope is inadequate for calculation of right ventricular systolic pressure. Normal right atrial pressure. Great Vessels There is mild dilatation of the ascending aorta measuring 4.00 cm. Small plaque is seen in the sino tubular ridge. Venous The inferior vena cava is normal in size. Inferior vena cava flow is normal. Pericardium/Pleural There is no evidence of pericardial effusion. Measurements 2D Linear Measurements IVSd: 0.93 0.6-0.9/0.6-1.0 cm LVIDd: 5.48 3.9-5.3/4.2-5.9 cm LVIDd Index: 2.66 2.4-3.2/2.2-3.1 cm/m2 LVIDs: 2.98 2.0-3.6 cm LVPWd: 0.81 0.7-1.1 cm LA Diam: 3.80 2.7-3.8/3.0-4.0 cm LAIDs Index: 1.84 1.5-2.3 cm/m2 LV Mass: 219.62 67-162/88-224 g LV Mass Index: 106.61 43-95/49-115 g/m2 LVOT Diam: 2.40 3.0+(-)1.3 cm 2D Systolic Function EF 4C: 73.70 >55% EF 2C: 59.00 >55% EF BiP: 66.70 >55% Mitral Valve MV Pk E: 0.75 MV PK A: 0.77 MV Decel Time: 292.00 E/A: 1.00 E'Lateral: 11.50 E'Medial: 9.14 E/E' Med: 8.20 E/E' Lat: 6.60 PHT: 86.00 MVA PHT: 2.56 Decel [place]: 2.58 Aortic Valve AoV Pk Sonido: 1.34 AoV Mn Sonido: 1.00 AoV VTI: 0.33 AoV Pk Grad: 7.00 Aov Mn Grad: 4.00 XANDER Cont.VTI: 3.50 LVOT LVOT Pk Sonido: 1.14 LVOT Mn Sonido: 0.73 LVOT VTI: 0.26 LVOT Pk Grad: 5.00 LVOT Mn Grad: 3.00 LVOT Diam: 2.40 LVOT Area: 4.52 Diastolic Function MV Pk E: 0.75 MV Pk A: 0.77 E/A: 1.00 E'Medial: 9.14 E/E' Med: 8.20 E' Laterial: 11.50 E/E' Lat: 6.60 Right Ventricle TAPSE (mm): 18.20 TVS' Sonido: 11.60 Tricuspid Valve RA Press: 3.00 Great Vessels Aorta Sinus of Valsalva: 3.70 2.0-3.5 cm Ao Asc: 4.00 2.1-3.4 cm Ao Arch: 2.80 Pulmonary Valve PV Pk Sonido: 0.73 Peak PV Grad: 2.00 Updated in Other Vendor System with Status of Final Bebeto Edouard MD electronically signed on 10/07/2024 11:24:15 AM with status of Final
== END ==
LOC: HO.CARD 15:18
PROVIDERS: PCP Internal Medicine; Visit Provider Internal Medicine
DX: I25.10 Atherosclerotic heart disease of native coronary artery without angina pectoris (principal)
CPT/HCPCS: 93306

== ENCOUNTER 2024-12-13 15:31 | Outpatient (REF) | payer MEDICAID, SELFPAY ==
--- NOTE | ~2024-12-13 | CT_ITS ---
CLINICAL HISTORY: [id number] lung carcinoma. CT chest with contrast Comparison: CT/SR - CT CHEST W IV CON - 07/06/24 08:[address]/[place]/SR - CT CHEST W IV CON - 02/10/24 11:11 EDT Findings: The heart size is normal. Severe atherosclerotic disease of the coronary arteries. No mediastinal adenopathy or pericardial effusion. No discrete thyroid lesion. Lungs exhibit severe centrilobular and bullous emphysema. Stable pulmonary nodules, for example medial right upper lobe, axial 63 measuring up to 6 mm. No new or increasing nodule. Moderate airway thickening. Subpleural reticular prominence noted. The visualized upper abdomen demonstrates no acute process. No suspicious bone lesion. Impression: Essentially stable findings. No new or increasing nodule. This document has been electronically signed by: Yinka Estrella MD on 12/15/2024 10:08:54
--- OUTSIDE RECORDS SUMMARY | 2024-12-13 15:39 | XMS_ITS | Clinical Summary ---
Author Organization [employer] [facility] ity Address [address] [place] [address] Care Team Providers Care Media Services Director Name Role Phone Unavailable Primary Care Provider Unavailabl e Social History Tobacco Use Types Packs/Day Years Used Date Smoking Tobacco: Never Assessed Sex and Gender Information Value Date Recorded Sex Assigned at Not on file Legal Sex Male 2:18 PM EST Gender Identity Not on file Sexual Orientation Not on file Plan of Treatment Health Maintenance Due Date Last Done Comments DTaP,Tdap,and Td Vaccines (1 - Tdap) 1985 Hepatitis B Vaccines (1 of 3 - 19+ 3-dose series) 1985 Pneumococcal Vaccine: 50+ Ye ars (1 of 1 - PCV) 2016 Zoster Vaccines (1 of 2) 2016 Cholesterol Screening (Lipid Panel) 06/10/2022 Colorectal Cancer Screening: Colonoscopy 06/10/2022 Depression Screening 06/10/2022 HIV Screening 06/10/2022 Hepatitis C Screening 06/10/2022 Social Influencers of Health Screening 06/10/2022 COVID-19 Vaccine (2023-2 5 season) 2024 Influenza Vaccine (Season Ended) 2025 HIB Vaccines Aged Out No longer eligi ble based on patient's age to complete this topic HPV Vaccines Aged Out No longer eligi ble based on patient's age to complete this topic Hepatitis A Vaccines Aged Out No long er eligible based on patient's age to complete this topic IPV Vaccines Aged Out No longer eligi ble based on patient's age to complete this topic MMR Vaccines Aged Out No longer eligi ble based on patient's age to complete this topic Meningococcal ACWY Vaccine Aged Out N o longer eligible based on patient's age to complete this topic Meningococcal B Vaccine Aged Out No l onger eligible based on patient's age to complete this topic Pneumococcal Vaccine: Pediat rics (0 to 5 Years) and At-Risk Patients (6 to 64 Years) Aged Out No longer eligible b ased on patient's age to complete this topic RSV Immunization Patients Un mark 20 months Aged Out No longer eligible b ased on patient's age to complete this topic Varicella Vaccines Aged Out No longer eligible based on patient's age to complete this topic
[2024-12-13] MEDS: iohexoL 350 MG/ML 100 ML INFUS..BTL IV (16:07)
== END 2024-12-13 15:32 | disposition home or self-care (01) ==
LOC: HO.CT 15:31
PROVIDERS: PCP Internal Medicine; Visit Provider Internal Medicine Medical Oncology
DX: C34.92 Malignant neoplasm of unspecified part of left bronchus or lung (principal)
CPT/HCPCS: 71260; Q9967

== ENCOUNTER → 2024-12-13 15:33 | Outpatient (BNV) | payer MEDICAID, SELFPAY | PROVIDERS: PCP Internal Medicine; Visit Provider Radiology Vascular & Interventional Radiology | DX: C34.92 Malignant neoplasm of unspecified part of left bronchus or lung (principal) | CPT/HCPCS: 71260 ==

== ENCOUNTER 2025-03-14 14:07 | Outpatient (REF) | payer MEDICAID, SELFPAY ==
--- OUTSIDE RECORDS SUMMARY | 2025-03-14 14:45 | XMS_ITS | Encounter Summary ---
Author Organization [employer] Address [address] [facility] 7t [place] [address] Care Team Providers Care Slot Tag Inserter Name Role Phone Nabil Lira MD Primary Care Provider [phone] Encounter Details Date Type Department Care Team ([facility] st Contact Info) Description 03/14/2025 2:45 PM EDT Office Visit [facility] [address] [place], [place] [phone] Nabil Lira MD [address] [place] [address] Paresthesias (Primary Dx); Cerumen debris on tympanic membrane of right ear; Coronary artery disease involving [place] coronary artery of [place] heart without angina pectoris; Other emphysema (CMS/HCC); [...] 2:59 PM EDT documented in this encounter Plan of Treatment Upcoming Encounters Date Type Department Care Team (Late st Contact Info) Description 03/22/2025 1:00 PM EDT Clinical Support [facility] [address] [place] [address] 04/11/2025 10:00 AM EDT Office Visit [facility] [address] [place] [address] Garo Sexton [address] [place] [address] Scheduled Orders Name Type Priority Associated Diagnoses [...] of right ear Coronary artery disease involving [place] coronary artery of [place] heart without angina pectoris Other emphysema (CMS/HCC) Other emphysema Primary hypertension Unspecified essential hypertension Increased urinary frequency Urinary frequency documented in this encounter Additional Health Concerns Assessment Noted Time PHQ-9 Depression Total Score: 15 09/20/2 025 9:03 AM EDT documented as of this encounter Care Teams Slot Tag Inserter Relationship Specialty Start Date End Date Nabil Lira MD [address] [place] [address] PCP - General Internal Medicine 07/12/18 documented as of this encounter
--- OUTSIDE RECORDS SUMMARY | 2025-03-14 16:24 | XMS_ITS | Encounter Summary ---
Author Organization [employer] Address [address] [facility] 7t [place] [address] Care Team Providers Care Curtain Cleaner Name Role Phone Nabil Lira MD Primary Care Provider [phone] Encounter Details Date Type Department Care Team ([facility] st Contact Info) Description 07/26/2024 Orders Only [facility] [address] [place], [place] [phone] Nabil Lira MD [address] [place], [place] [phone] Social History Tobacco Use Types Packs/Day Years Used Date Smoking Tobacco: Every Day Cigarettes Smokeless Tobacco: Never Alcohol Use Standard Drinks/Week Comments Yes 0 (1 standard drink = 0.6 oz pur e alcohol) Depression Answer Date Recorded Patient Health Questionnaire-9 Score 11 02/23/2023 Housing Stability Answer Date Recorded What is your housing situation today? Not on elli e 04/27/[address] you li ve. Do you have problems with any of the following? None of the above 04/27/2023 Food Insecurity Answer Date Recorded Within the past 12 months, y ou worried that your food would run out before you got money to buy more: Never True 04/27/2023 Within the past 12 months,th e food you bought just didn't last and you didn't have enough money to get more: Never True Utilities Answer Date Recorded In the past 12 months, has t he electric, gas, oil or water company threatened to shut off services in your home? No 04/27/2023 Depression Answer Date Recorded Patient Health Questionnaire-2 Score 2 02/23/2023 Sex and Gender Information Value Date Recorded Sex Assigned at Male 05/11/2022 10:20 AM EDT Legal Sex Male 10:20 AM EDT Gender Identity Male 05/11/2022 10:20 AM EDT Sexual Orientation Bisexual 05/11/2022 10 :20 AM EDT documented as of this encounter Plan of Treatment Upcoming Encounters Date Type Department Care Team (Late st Contact Info) Description 03/22/2025 1:00 PM EDT Clinical Support [facility] [address] [place] [address] 04/11/2025 10:00 AM EDT Office Visit [facility] [address] [place] [address] Garo Sexton [address] [place] [address] documented as of this encounter Visit Diagnoses Not on filedocumented in this encounter Additional Health Concerns Assessment Noted Time PHQ-9 Depression Total Score: 11 02/23/ 023 10:09 AM EDT documented as of this encounter Care Teams Curtain Cleaner Relationship Specialty Start Date End Date Nabil Lira MD [address] [place] [address] PCP - General Internal Medicine 07/12/18 documented as of this encounter
--- OUTSIDE RECORDS SUMMARY | 2025-03-14 16:24 | XMS_ITS | Encounter Summary ---
Author Organization [employer] Address [address] [facility] [address] 7t [place] [address] Care Team Providers Care Clinical Nurse Manager Name Role Phone Nabil Lira MD Primary Care Provider [phone] Encounter Details Date Type Department Care Team (Latest Contact Info) Description 03/14/2025 Travel Social History Tobacco Use Types Packs/Day Years [...] Description 03/22/2025 1:00 PM EDT Clinical Support [facility] [address] [place] [address] 04/11/2025 10:00 AM EDT Office Visit [facility] [address] [place] [address] Garo Sexton [address] [place] [address] documented as of this encounter Visit Diagnoses Not on filedocumented in this encounter Additional Health Concerns Assessment Noted Time PHQ-9 Depression Total Score: 15 025 9:03 AM EDT documented as of this encounter Care Teams Clinical Nurse Manager Relationship Specialty Start Date End Date Nabil Lira MD [address] [place] [address] PCP - General Internal Medicine 07/12/18 documented as of this encounter
--- OUTSIDE RECORDS SUMMARY | 2025-03-14 16:24 | XMS_ITS | Clinical Summary ---
Author Organization [employer] [facility] Address [address] [place] [address] Care Team Providers Care Poultry Inspector Name Role Phone Unavailable Primary Care Provider [...] 2016 Zoster Vaccines (1 of 2) 2016 Depression Screening 07/12/2024 COVID-19 Vaccine (1 - 2023-2 5 season) 2025 Influenza Vaccine (#1) 2025 HIB Vaccines Aged Out No longer [...]
--- OUTSIDE RECORDS SUMMARY | 2025-03-14 16:24 | XMS_ITS | Encounter Summary ---
Author Organization [employer] Address [address] [place] [address] [address] [place] [address] Care Team Providers Care Hydraulic Spinner Name Role Phone Nabil Lira MD Primary Care Provider [phone] Encounter Details Date Type Department Care Team (Latest Contact Info) Description 07/27/2018 Abstract [facility] CONVERSIONS Dental, Provider, DDS Social History Tobacco Use Types Packs/Day Years [...] Description 03/22/2025 1:00 PM EDT Clinical Support [facility] [address] [place] [address] 04/11/2025 10:00 AM EDT Office Visit [facility] [address] [place] [address] Carlie, Garo [address] [place] [address] documented as of this encounter Visit Diagnoses Not on filedocumented in this encounter Care Teams Hydraulic Spinner Relationship Specialty Start Date End Date Nabil Lira MD [address] [place] [address] PCP - General Internal Medicine 07/12/18 documented as of this encounter
--- OUTSIDE RECORDS SUMMARY | 2025-03-14 16:24 | XMS_ITS | Encounter Summary ---
Author Organization [employer] Address [address] [facility] 7 [place] [address] Care Team Providers Care Head Boys Golf Coach Name Role Phone Nabil Lira MD Primary Care Provider [phone] Encounter Details Date Type Department Care Team (Latest Contact Info) Description 02/27/2022 Abstract [facility] CONVERSIONS Dental, Provider, DDS Social History Tobacco [...] Description 03/22/2025 1:00 PM EDT Clinical Support [facility] [address] [place] [address] 04/11/2025 10:00 AM EDT Office Visit [facility] [address] [place] [address] Carlie Garo [address] [place] [address] documented as of this encounter Visit Diagnoses Not on filedocumented in this encounter Care Teams Head Boys Golf Coach Relationship Specialty Start Date End Date Nabil Lira MD [address] [place] [address] PCP - General Internal Medicine 07/12/18 documented as of this encounter
--- OUTSIDE RECORDS SUMMARY | 2025-03-14 16:25 | XMS_ITS | Clinical Summary ---
Author Organization [employer] Address [address] [facility] [address] [place] [address] Care Team Providers Care Sterilization Specialist Name Role Phone Nabil Lira MD Primary Care Provider [phone] Allergies No known active allergies Medications aspirin 81 MG EC tablet Take 1 tablet by mouth 1 (one) time each day. Active oxyCODONE-acetami nophen (Percocet) 5-325 MG tablet Take 1 tablet by mouth every 6 (six) hours if needed. Active Nutritional Supplements (Ensure Active High Protein) liquid Take 1 Bottle by mouth every 12 (twelve) hours. Active tiZANidine (Zanaflex) 2 MG tablet Take 1 tablet by mouth at bedtime. Active cholecalciferol (Vitamin D-3) 25 MCG (1000 UT) capsule Take 1 capsule by mouth 1 (one) time each day. Active acetaminophen (Tylenol) 500 MG tablet Take 2 tablets by mouth every 12 (twelve) hours if needed. Active betamethasone dipropionate (Diprosone) 0.05 % lotion Apply topically. 2 times every day a few drops to the affected area(s) in the morning and at bedtime; rub gently and completely Active Misc. Devices (Wrist Brace) misc To wear daily Active Blood Pressure kit Take by on arm route as directed Active morphine CR (MS Contin) 30 MG 12 hr tablet Take 30 mg by mouth every 12 (twelve) hours. Active amLODIPine (Norvasc) 5 MG tabletIndications :Primary hypertension Take 1 tablet (5 mg) by mouth Once per day. 30 tablet 11 024 Active amLODIPine (Norvasc) 10 MG tablet Take 10 mg by mouth Once per day. Active nicotine (Nicoderm, Step 2) 14 MG/24HR patch PLEASE SEE ATTACHED FOR DETAILED DIRECTIONS 024 Active nicotine polacrilex (Commit) 4 MG lozenge PLEASE SEE ATTACHED FOR DETAILED DIRECTIONS Active metoprolol succinate XL (Toprol-XL) 25 MG 24 hr tabletIndications :Coronary artery disease involving [place] coronary artery of [place] mountain heart without angina pectoris TAKE 1 TABLET BY MOUTH EVERY DAY 90 tablet 1 025 Active Diclofenac Sodium 1 % gelIndications:Ne ck pain,Other osteoarthritis involving multiple joints APPLY 2 GRAMS TOPICALLY EVERY 6 HOURS. TO THE AFFECTED AREA(S) 100 g 1 025 Active loratadine (Claritin) 10 MG tablet TAKE 1 TABLET BY MOUTH EVERY DAY IN THE MORNING 90 tablet 025 Active pantoprazole (ProtoNix) 40 MG EC tabletIndications :Gastroesophageal reflux disease without esophagitis TAKE 1 TABLET (40 MG) BY MOUTH BEFORE BREAKFAST 90 tablet 025 Active atorvastatin (Lipitor) 80 MG tabletIndications :Coronary artery disease involving turtle [place] coronary artery of turtle mountain heart without angina pectoris TAKE 1 TABLET (80 MG) BY MOUTH IN THE MORNING 90 tablet 025 Active nortriptyline (Pamelor) 25 MG capsuleIndication s:Paresthesias Take 1 capsule (25 mg) by mouth at bedtime. 30 capsule 3 025 Active carbamide peroxide (Debrox) 6.5 % otic solutionIndicatio ns:Cerumen debris on tympanic membrane of right ear Administer 5-10 drops into affected ear(s) 2 times daily for 4 days. 30 mL 025 2024 Active nortriptyline (Pamelor) 25 MG capsule Take 1 capsule by mouth 1 (one) time each day. 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 Osteopenia 09/12/2010 Compression fracture 05/12/2010 Encounters Date Type Department Care Team Description 03/14/2025 2:45 PM EDT Office Visit [facility] [address] [place] [address] Nabil Lira MD Paresthesias (Primary Dx); Cerumen debris on tympanic membrane of right ear; Coronary artery disease involving turtle mountain coronary artery of turtle mountain heart without angina pectoris; Other emphysema (CMS/HCC); Primary hypertension; Increased urinary frequency 03/14/2025 Travel 03/13/2025 Telephone [facility] [address] [place] [address] Nabil Lira MD Chart Prep 03/06/2025 Patient Outreach [facility] [address] [place] [address] Nabil Lira MD Pre-visit Planning (SDOH screening completed on 09/20/24) 02/23/2025 1:30 PM EDT Office Visit [facility] ADULT D[facility]AL [address] [place] [address] Garo Sexton 02/23/2025 Telephone [facility] [address] [place] [address] Nabil Lira MD Appointment Request 01/18/2025 Refill [facility] [address] [place] [address] Nabil Lira MD Gastroesophageal reflux disease without esophagitis; Coronary artery disease involving turtle mountain coronary artery of [place] mountain heart without angina pectoris 12/22/2024 Refill [facility] [address] [place] [address] Nabil Lira MD Neck pain; Other osteoarthritis involving multiple joints 12/13/2024 Orders Only [facility] External Provider, [facility] from Last 3 Months Immunizations Immunization Administration Dates Next Due Influenza, Split (incl. purified surface antigen ) 04/27/2013 Pfizer Covid-19 Vaccine 12+ 04/25/2021, Family History Medical History Relation Name Comments Prostate cancer Father Alzheimer's disease Maternal Grandmother Diabetes Maternal Grandmother Glaucoma Maternal Grandmother Hypertension Maternal Grandmother Alzheimer's disease Mother Diabetes Mother Hypertension Mother Relation Name Status Comments Father Maternal Grandmother Mother Social History Tobacco Use Types Packs/Day Years Used Date Smoking Tobacco: Every Day Cigarettes Smokeless Tobacco: Never Tobacco Cessation:Ready to Q uit: Not Asked; Counseling Given: Not Answered Alcohol Use Standard Drinks/Week Comments Yes 0 [...] is your housing situation today? I have jhoyn ceja 09/20/[address] you [...] Orientation Bisexual 05/11/2022 10 :20 AM EDT Last Filed Vital Signs Vital Sign Reading [...] Mass Index 22.82 03/14/2025 2:59 PM EDT Plan of Treatment Upcoming Encounters Date Type Department Care Team (Late st Contact Info) Description 03/22/2025 1:00 PM EDT Clinical Support [facility] [address] [place] [address] 04/11/2025 10:00 AM EDT Office Visit [facility]ULT [facility] [address] [place] [address] Garo Sexton [address] [place] [address] Health Maintenance Due Date Last Done Comments CT Colonography 1966 Colonoscopy 1966 Colorectal Cancer Screening 1966 FIT DNA/Cologuard 1966 FIT 1966 FOBT 1966 Sigmoidoscopy 1966 Disability Screening 1966 Zoster Vaccines (1 of 2) 2016 Dental Oral Exam 01/24/2025 07/26/2024, , 09/01/2018, Additional history exists Dental Prophylaxis 01/24/2025 07/26/2024, 1 , 07/27/2018, Additional history exists COVID-19 Vaccine ( - 2024- season) 2025 04/25/2021, 04/03/2021 Influenza Vaccine (#1) 2025 04/27/2013 Depression Monitoring 03/23/2025 09/20/2024, 025 Dental X-Ray: Bitewings 07/27/2025 07/26/19 25, 03/22/2023, 02/27/2022, Additional history exists Alcohol/Substance Use Screening 09/20/2025 09/20/2024 SDOH Screening 09/20/2025 09/20/2024 Tobacco Screening 02/23/2026 02/23/2025 DTaP/Tdap/Td Vaccines (1 - Tdap) 03/14/2026 Postponed from 1985 (Patient Refused) Hepatitis B Vaccines (1 of 3 - 19+ 3-dose series) 03/14/2026 Postponed from 1985 (Patient Refused) Pneumococcal Vaccine: 50+ Years (1 of 2 - PCV) 03/14/2026 Postponed from 1985 (Patient Refused) Dental X-Ray: Full Mouth 03/23/2026 03/22/2023, 08/2012 Lipid Panel 01/28/2027 01/28/2022 RSV Patients and Patients Aged 60 years or older (1 - 1-dose 75+ series) 2041 Hepatitis C Screening Completed 09/17/2020 HIV Screening Completed 01/28/2022, 0303/2021, 07/04/2019 HIB Vaccines Aged Out No longer eligi [...] patient's age to complete this topic Meningococcal Vaccine Aged Out No bib shaun eligible based on patient's age to complete this topic RSV under 20 months Aged Out No longe r eligible based on patient's age to complete this topic Rotavirus Vaccines Aged Out No longer eligible based on patient's age to complete this topic Procedures Procedure Name Priority Date/Time Associated Diagnosis Comments CASE PRESENTATION, DETAILED AND EXTENSIVE TREATMENT PLANNING Routine 02/23/2025 1:30 PM EDT 3 MO RESIN-BASED COMPOSITE - 2 SURF, POSTERIOR Routine 02/23/2025 1:[address] CHEST W CONTRAST Routine 12/15/2024 1 0:08 AM EDT Full PROPHYLAXIS - ADULT Routine 07/26/2024 1:00 PM EST BITEWINGS - 4 RADIOGRAPHIC IMAGES Routine 07/26/2024 1:00 PM EST PERIODIC ORAL EVALUATION - ESTABLISHED PATIENT Routine 07/26/2024 1:00 PM EST INTRAORAL - COMPLETE SERIES OF RADIOGRAPHIC IMAGES Routine 03/22/2023 3:00 PM EDT HIV 1/2 ANTIGEN/ANTIBODY, FOURTH GENERATION W/RFL Routine 01/28/2022 4:03 PM EDT LIPID PANEL, STANDARD Routine 01/28/2022 4:03 PM EDT ZZZ HISTORICAL HEPATITIS C AB W/REFL TO HCV RNA, QN, PCR Routine 09/17/2020 2:39 PM EST from Last 3 Months or Most Recently Relevant to Health Maintenance Results * CT Chest w/ Contrast (12/15/2024 10:08 AM EDT) Anatomical Region Laterality Modality Body, Chest Computed Tomogra phy 12/15/2024 10:0 8 AM EDT Narrative 12/15/2024 10:10 AM EDT [address] [address] [address] Scan Report Signed Patient: Javier Soni MR#: [id number] : 1965 Acct:[id number] Age/Sex: 59 / M ADM Date: 12/13/24 Loc: HO.CT Attending Dr: Demetrio Martinez MD Ordering Physician: Demetrio Martinez MD Date of Service: 12/13/24 Procedure(s): CT chest w IV con Accession Number(s): [id number] cc: Nabil Lira MD; Demetrio Martinez MD Report Number: [id number]: Total DLP = 128.00 mGy-cm CLINICAL HISTORY: Vkm-grreh-qakc lung carcinoma. CT chest with contrast Comparison: CT/SR - CT CHEST W IV CON - 07/06/24 08:[address]/[place]/SR - CT CHEST W IV CON - 02/10/24 11:11 EDT Findings: The heart size is normal. Severe atherosclerotic disease of the coronary arteries. No mediastinal adenopathy or pericardial effusion. No discrete thyroid lesion. Lungs exhibit severe centrilobular and bullous emphysema. Stable pulmonary nodules, for example medial right upper lobe, axial 63 measuring up to 6 mm. No new or increasing nodule. Moderate airway thickening. Subpleural reticular prominence noted. The visualized upper abdomen demonstrates no acute process. No suspicious bone lesion. Impression: Essentially stable findings. No new or increasing nodule. This document has been electronically signed by: Yinka Estrella MD on 12/15/2024 10:08:54 Dictated By: Yinka Estrella MD Signed By: <Electronically signed by Yinka Estrella MD in OV> 12/15/24 1010 DD/ 1008 TD/TT: 12/15/24 1008 Apprentice Painter Hand: Procedure Note Donotuseinterpreter, Image - 12/15/[address] [place] [address] [address] Scan Report Signed Patient: Javier Soni AMR#: [id number] : 1965Acct:[id number] Age/Sex: 59 / MADM Date: 12/13/24 Loc: HO.CT Attending Dr: Demetrio Martinez MD Ordering Physician: Demetrio Martinez MD Date of Service: 12/13/24 Procedure(s): CT chest w IV con Accession Number(s): [id number] cc: Nabil Lira MD; Demetrio Martinez MD Report Number: [id number]: Total DLP = 128.00 mGy-cm CLINICAL HISTORY: Uzl-kwehl-sosf lung carcinoma. CT chest with contrast Comparison: CT/SR - CT CHEST W IV CON - 07/06/24 08:[address]/[place]/SR - CT CHEST W IV CON - 02/10/24 11:11 EDT Findings: The heart size is normal. Severe atherosclerotic disease of the coronary arteries. No mediastinal adenopathy or pericardial effusion. No discrete thyroid lesion. Lungs exhibit severe centrilobular and bullous emphysema. Stable pulmonary nodules, for example medial right upper lobe, axial 63 measuring up to 6 mm. No new or increasing nodule. Moderate airway thickening. Subpleural reticular prominence noted. The visualized upper abdomen demonstrates no acute process. No suspicious bone lesion. Impression: Essentially stable findings. No new or increasing nodule. This document has been electronically signed by: Yinka Estrella MD on 12/15/2024 10:08:54 Dictated By: Yinka Estrella MD Signed By: <Electronically signed by Yinka Estrella MD in OV> 12/15/24 1010 DD/ 1008 TD/TT: 12/15/24 1008 Apprentice Painter Hand: [facility] External Provider IMG CT PROCEDURES Edited Result - Final * HIV 1/2 ANTIGEN/ANTIBODY,FOURTH GENERATION W/RFL (01/28/2022 4:03 PM EDT) HIV-1/2 ANTIGEN AND ANTIBODIES, 4TH GENERATION W/ REFLEX NON-REACT RONNIE NON-REACT RONNIE [facility] Comment: HIV-1 antigen and HIV-1/HIV-2 antibodies were not detected. There is no laboratory evidence of HIV infection. PLEASE NOTE: This information has been disclosed to you from records whose confidentiality may be protected by state law. If your state requires such protection, then the state law prohibits you from making any further disclosure of the information without the specific written consent of the person to whom it pertains, or as otherwise permitted by law. A general authorization for the release of medical or other information is NOT sufficient for this purpose. For additional information please refer to http://education.GiftRocket.BuzzVote/faq/KBR457 (This link is being provided for informational/ educational purposes only.) The performance of this assay has not been clinically validated in patients less than 2 years old. 01/28/2022 4:03 PM EDT Nabil Lira MD LAB BLOOD ORDERABLES Final Result Performing Organization Address [facility] de Phone Number [facility] [address] [place] [address], * (ABNORMAL) LIPID PANEL, STANDARD (01/28/2022 4:03 PM EDT) Chol/HDLC Ratio 3.3 <5.0 (calc) [facility] Cholesterol, Total 69 <200 mg/dL [facility] HDL Cholesterol 21(L) > OR = 40 mg/dL [facility] LDL Cholesterol 30 mg/dL (calc) [facility] Comment: Reference range: <100 Desirable range <100 mg/dL for primary prevention; <70 mg/dL for patients with CHD or diabetic patients with > or = 2 CHD risk factors. LDL-C is now calculated using the Berry-Mcnulty calculation, which is a validated novel method providing better accuracy than the Friedewald equation in the estimation of LDL-C. Berry SS et al. JUNIOR. 2013;310(19): 4221-5828 (http://education.medidametrics.BuzzVote/faq/PHR493) Non-HDL Cholesterol 48 <130 mg/dL (calc) [facility] Comment: For patients with diabetes plus 1 major ASCVD risk factor, treating to a non-HDL-C goal of <100 mg/dL (LDL-C of <70 mg/dL) is considered a therapeutic option. Triglycerides 99 <150 mg/dL [facility] 01/28/2022 4:03 PM EDT us Nabil Lira MD LAB BLOOD ORDERABLES Final Result Performing Organization Address [facility] Co de Phone Number [facility] [address] [place] [address], * HEPATITIS C AB W/REFL TO HCV RNA, QN, PCR (09/17/2020 2:39 PM EST) HEPATITIS C ANTIBODY NON-REACT RONNIE NON-REACT [facility]ONNIE [facility] INDEX 0.03 <1.00 [facility] Comment: HCV antibody was non-reactive. There is no laboratory evidence of HCV infection. In most cases, no further action is required. However, if recent HCV exposure is suspected, a test for HCV RNA (test code 53335) is suggested. For additional information please refer to http://Proginet.SquadMail/faq/SEE80m0 (This link is being provided for informational/ educational purposes only.) 09/17/2020 2:39 PM EST us Serafin Estrella MD HISTORICAL/NON ORDERABLE LABS Final Result [facility] [address] from Last 3 Months or Most Recently Relevant to Health Maintenance Insurance [place] [place] [address] C3 D[facility]AL-[facility] MEDICA[employer] STAND ADULT Care Teams Sterilization Specialist Relationship Specialty Start Date End Date Nabil Lira MD [address] [place] [id number] PCP - General Internal Medicine 07/12/18
--- OUTSIDE RECORDS SUMMARY | 2025-03-14 16:25 | XMS_ITS | Encounter Summary ---
Author Organization [employer] Address [address] [facility] 7 [place] [address] Care Team Providers Care Hospital Recruiter Name Role Phone Nabil Lira MD Primary Care Provider [phone] Reason for Visit * Reason Onset Date Comments Chart Prep 03/13/2025 Encounter Details Date Type Department Care Team ([facility] st Contact Info) Description 03/13/2025 Telephone [facility] [address] [place], [place] [phone] Nabil Lira MD [address] [place] [address] Chart Prep Social History Tobacco Use Types Packs/Day Years [...] the past 12 months, has t he [employer], gas, oil or water [id number] threatened to shut off services in your [...] AM EDT documented as of this encounter Miscellaneous Notes * Telephone Encounter - Tahmina Finnegan [place] - 03/13/2025 2:18 PM EDT Chart Prep Labs: not done Images: done Referrals: complete Vaccines due: PCV20, Tdap, Hep B, and Zoster Screenings: colonoscopy Overdue care gaps: PHQ-9 and Disability screen documented in this encounter Plan of Treatment Upcoming Encounters Date Type Department Care Team (Late st Contact Info) Description 03/22/2025 1:00 PM EDT Clinical Support [facility] [address] [place] [address] 04/11/2025 10:00 AM EDT Office Visit [facility] ADULT [facility] [address] [place] [address] Garo Sexton [address] [place] [address] documented as of this encounter Visit Diagnoses Not on filedocumented in this encounter Additional Health Concerns Assessment Noted Time PHQ-9 Depression Total Score: 15 025 9:03 AM EDT documented as of this encounter Care Teams Hospital Recruiter Relationship Specialty Start Date End Date Nabil Lira MD [address] [place] [address] PCP - General Internal Medicine 07/12/18 documented as of this encounter
[2025-03-14 17:43] LABS: MANUAL DIFF FLAG NO
[2025-03-14 18:00] LABS: Hemoglobin A1C 163.3096 umol/L; Total Hemoglobin (HGBA1C) 4002.2404 umol/L
[2025-03-14 18:03] LABS: Hematocrit 47.1 % (42.0-52.0); Hemoglobin 15.4 g/dl (14.0-18.0); Imm Gran Abs Auto 0.04 X10*3/uL (0.00-0.03); Imm Gran Pct Auto 0.4 % (0.0-0.4); Lymphocytes Absolute Auto 3.2 X10*3/uL (1.2-4.9); Mean Corpuscular HGB Conc 32.7 g/dl (31.0-36.0); Mean Corpuscular Hemoglobin 28.4 pg (27.0-33.0); Mean Corpuscular Volume 86.7 fL (80.0-98.0); NRBC Abs Auto 0.000 X10*3/uL (0.0-0.012); NRBC Pct Auto 0.0 /100WBC (0.0-0.2); Platelet Count 270 X10*3/uL (160-400); Red Blood Count 5.43 X10*6/uL (4.60-5.80); White Blood Count 11.4 X10*3/uL (4.8-10.8)
[2025-03-14 18:11] LABS: Cholesterol 113 mg/dL (<200); HDL Cholesterol 38 mg/dL (>40); Triglycerides 143 mg/dL (<150)
[2025-03-14 18:43] LABS: Folate 4.8 ng/mL (> or = 4.0); Vitamin B12 387 pg/mL (200-900)
== END 2025-03-14 14:08 | disposition home or self-care (01) ==
LOC: HO.CHCLDS 14:07
PROVIDERS: Visit Provider Internal Medicine
DX: I25.10 Atherosclerotic heart disease of native coronary artery without angina pectoris (principal); R53.83 Other fatigue; R20.2 Paresthesia of skin
CPT/HCPCS: 36415; 80061; 82607; 82746; 83036; 85025

== ENCOUNTER 2025-03-16 07:34 | Outpatient (REF) | payer MEDICAID, SELFPAY ==
--- OUTSIDE RECORDS SUMMARY | 2025-03-14 14:45 | XMS_ITS | Encounter Summary ---
Author Organization [employer] Address [address] [facility] 7t [place] [address] Care Team Providers Care Manager Sap Name Role Phone Nabil Lira MD Primary Care Provider [phone] Reason for Visit * Reason Comments Extended office visit Encounter Details Date Type Department Care Team ([facility] st Contact Info) Description 03/14/2025 2:45 PM EDT Office Visit [facility] [address] [place], [place] [phone] Nabil Lira MD [address] [place] [address] Paresthesias (Primary Dx); Cerumen debris on tympanic membrane of right ear; Coronary artery disease involving [place] coronary artery of [place] heart without angina pectoris; Other emphysema (CMS/HCC); Primary hypertension; Increased urinary frequency Social History Tobacco Use Types Packs/Day Years Used Date Smoking Tobacco: Every Day Cigarettes Smokeless Tobacco: Never Alcohol Use Standard Drinks/Week Comments Yes 0 (1 standard drink = 0.6 oz pur e alcohol) Alcohol Answer Date Recorded How often do you have a drink containing alcohol ? 1 09/20/2024 How many drinks containing a lcohol do you have on a typical day when you are drinking? 0 09/20/2024 How often do you have six or more drinks on one occasion? 0 09/20/2024 Depression Answer Date Recorded Patient Health Questionnaire-9 Score 15 09/20/2024 Patient Health Questionnaire-9 Score 15 09/20/2024 Last PHQ-9: Questionnaire Data Not on file 0 09/20/2024 Housing Stability Answer Date Recorded What is your housing situation today? I have jhony ceja 09/20/[address] you li ve. Do you have problems with any of the following? Pests such as bugs, ants, or mice;Mold 09/20/2024 Food Insecurity Answer Date Recorded Within the past 12 months, y ou worried that your food would run out before you got money to buy more: Sometimes True 2024 Within the past 12 months,th e food you bought just didn't last and you didn't have enough money to get more: Sometimes True 09/20/2024 Transportation Answer Date Recorded In the past 12 months, has l ack of transportation kept you from medical appts, meetings, work or from getting things needed for daily living? No 09/20/2024 Utilities Answer Date Recorded In the past 12 months, has t he electric, gas, oil or water company threatened to shut off services in your home? No 09/20/2024 Depression Answer Date Recorded Patient Health Questionnaire-2 Score 5 09/20/2024 Internet Access Answer Date Recorded Internet Access Q1 No 09/20/2024 Internet Access Q2 My internet/Wi-Fi ac cess is not consistent or reliable;I do not want or need it 09/20/2024 Sex and Gender Information Value Date Recorded Sex Assigned at Male 05/11/2022 10:20 AM EDT Legal Sex Male 10:20 AM EDT Gender Identity Male 05/11/2022 10:20 AM EDT Sexual Orientation Bisexual 05/11/2022 10 :20 AM EDT documented as of this encounter Last Filed Vital Signs Vital Sign Reading Time Taken Comments Blood Pressure 111/77 03/14/2025 2:59 PM EDT Pulse 62 03/14/2025 2:59 PM EDT Temperature 36.3 C (97.4 F) 03/14/2025 2:59 PM EDT Respiratory Rate 20 03/14/2025 2:59 PM EDT Oxygen Saturation 98% 03/14/2025 2:59 PM EDT Inhaled Oxygen Concentration - - Weight 78.5 kg (173 lb) 03/14/2025 2:59 PM EDT Height 185.4 cm (6' 1 ) 03/14/2025 2:59 PM EDT Body Mass Index 22.82 03/14/2025 2:59 PM EDT documented in this encounter Progress Notes * Nabil Lira MD - 03/14/2025 2:45 PM EDT CAMELIA Soni is a 59 y.o. male who presents for No chief complaint on file.. HPI Mr Javier Soni has history of metastatic lung cancer, poorly differentiated carcinoma. Recently evaluated by his oncologist on January 11, 2025. Possible primaries include: 1) lung cancer: History of smoking, most likely. 2) GI primary: Patient has history of anorexia with significant weight loss 3) pancreatic primary: In view of the weight loss 4) possible prostate primary because of increased frequency of micturition. At his last visit the plan was to receive the 49th dose of pembrolizumab. His last repeat CT scan of the chest from December 15, 2024 is stable Patient would like to take a break from the immunotherapy. Patient will get repeat imaging 3 monthsfrom the last visit. Further management will be decided after reviewing the imaging study. Mr. Javier Soni reports feeling fatigued, tired with difficulty performing his ADL sometimes becauseof his symptoms. He is also complaining of an intermittent left upper limb sensation of tingling and numbness especially at night. The tingling is more pronounced on the first left 3 fingers: the thumb and index and middle finger. A workup consisting of checking vitamin B12, CBC was done today. Given his symptoms Mr. Javier Soni is trying to get a [employer]CRA[employer] STE[employer] at home. Problem List[1] Allergies[2] Medications Ordered Prior to Encounter[3] Review of Systems Constitutional: Positive for appetite change and fatigue. Eyes: Negative for pain and redness. Respiratory: Negative for cough, choking and shortness of breath. Cardiovascular: Negative for leg swelling. Gastrointestinal: Negative for blood in stool, constipation and diarrhea. Genitourinary: Negative for genital sores, hematuria and penile discharge. Musculoskeletal: Negative for back pain, gait problem and joint swelling. OBJECTIVE Vitals: 03/14/25 1459 BP: 111/77 Pulse: 62 Resp: 20 Temp: 97.4 ??F (36.3 ??C) TempSrc: Oral SpO2: 98% Weight: 173 lb (78.5 kg) Height: 6' 1 (1.854 m) Physical Exam Constitutional: General: He is not in acute distress. Appearance: Normal appearance. He is not ill-appearing, toxic-appearing or diaphoretic. HENT: Left Ear: There is impacted cerumen. Cardiovascular: Rate and Rhythm: Normal rate. Pulses: Normal pulses. Pulmonary: Effort: Pulmonary effort is normal. Abdominal: Palpations: Abdomen is soft. Genitourinary: Penis: Normal. Testes: Normal. Skin: General: Skin is warm. Neurological: General: No focal deficit present. Mental Status: He is alert. Assessment/Plan Assessment/Plan Diagnoses and all orders for this visit: Paresthesias Comments: Left wrist brace was prescribed and given to the patient during the evaluation today. Start nortriptyline as recommended Report any side effect Orders: - Comprehensive Metabolic Panel; Future - nortriptyline (Pamelor) 25 MG capsule; Take 1 capsule (25 mg) by mouth at bedtime. - XR Cervical Spine 2-3 Views; Future Cerumen debris on tympanic membrane of right ear - carbamide peroxide (Debrox) 6.5 % otic solution; Administer 5-10 drops into affected ear(s) 2 times daily for 4 days. Coronary artery disease involving [place] coronary artery of [place] heart without angina pectoris Comments: No reported chest pain/shortness of breath Advised to continue with the current medication Transthoracic echo is still pending Other emphysema (CMS/HCC) Comments: Complete smoking cessation recommended Primary hypertension Comments: Blood pressure is at goal No acute intervention today Continue with the DASH diet Increased urinary frequency Comments: Labs ordered Patient will need to follow-up with urology Orders: - Urinalysis, Complete, with Reflex to Culture; Future - PSA, Total With Reflex to PSA, Free; Future [1] Patient Active Problem List Diagnosis Adrenal carcinoma (CMS/HCC) Centriacinar emphysema (CMS/HCC) Compression fracture Contact dermatitis Coronary artery disease involving [place] coronary artery of [place] heart without angina pectoris Coronary arteriosclerosis Gastroesophageal reflux disease Hypoalbuminemia Oronasal fistula Osteopenia Periodontal disease Pulmonary emphysema (CMS/HCC) Primary hypertension [2] No Known Allergies [3] Current Outpatient Medications on File Prior to Visit Medication Sig Dispense Refill acetaminophen (Tylenol) 500 MG tablet Take 2 tablets by mouth every 12 (twelve) hours if needed. amLODIPine (Norvasc) 10 MG tablet Take 10 mg by mouth Once per day. amLODIPine (Norvasc) 5 MG tablet Take 1 tablet (5 mg) by mouth Once per day. 30 tablet 11 aspirin 81 MG EC tablet Take 1 tablet by mouth 1 (one) time each day. atorvastatin (Lipitor) 80 MG tablet TAKE 1 TABLET (80 MG) BY MOUTH IN THE MORNING 90 tablet 0 betamethasone dipropionate (Diprosone) 0.05 % lotion Apply topically. 2 times every day a few dropsto the affected area(s) in the morning and at bedtime; rub gently and completely Blood Pressure kit Take by on arm route as directed cholecalciferol (Vitamin D-3) 25 MCG (1000 UT) capsule Take 1 capsule by mouth 1 (one) time each day. Diclofenac Sodium 1 % gel APPLY 2 GRAMS TOPICALLY EVERY 6 HOURS. TO THE AFFECTED AREA(S) 100 g 1 loratadine (Claritin) 10 MG tablet TAKE 1 TABLET BY MOUTH EVERY DAY IN THE MORNING 90 tablet 0 metoprolol succinate XL (Toprol-XL) 25 MG 24 hr tablet TAKE 1 TABLET BY MOUTH EVERY DAY 90 tablet 1 Misc. Devices (Wrist Brace) misc To wear daily morphine CR (MS Contin) 30 MG 12 hr tablet Take 30 mg by mouth every 12 (twelve) hours. nicotine (Nicoderm, Step 2) 14 MG/24HR patch PLEASE SEE ATTACHED FOR DETAILED DIRECTIONS nicotine polacrilex (Commit) 4 MG lozenge PLEASE SEE ATTACHED FOR DETAILED DIRECTIONS Nutritional Supplements (Ensure Active High Protein) liquid Take 1 Bottle by mouth every 12 (twelve) hours. oxyCODONE-acetaminophen (Percocet) 5-325 MG tablet Take 1 tablet by mouth every 6 (six) hours if needed. pantoprazole (ProtoNix) 40 MG EC tablet TAKE 1 TABLET (40 MG) BY MOUTH BEFORE BREAKFAST 90 tablet 0 tiZANidine (Zanaflex) 2 MG tablet Take 1 tablet by mouth at bedtime. [DISCONTINUED] nortriptyline (Pamelor) 25 MG capsule Take 1 capsule by mouth 1 (one) time each day. No current facility-administered medications on file prior to visit. documented in this encounter Plan of Treatment Upcoming Encounters Date Type Department Care Team ([facility] st Contact Info) Description 03/22/2025 1:00 PM EDT Clinical Support [facility] [address] [place] [address] 04/11/2025 10:00 AM EDT Office Visit [facility] [address] [place] [address] Garo Sexton [address] [place] [address] Scheduled Orders Name Type Priority Associated Diagnoses Orde r Schedule Comprehensive Metabolic Panel Lab Routine Paresthesias Expected: 03/14/2025 (Approximate), Expires: 03/14/2026 XR Cervical Spine 2-3 Views Imaging Routine Paresthesias Expected: 03/14/2025, Expires: 03/14/2026 Urinalysis, Complete, with Reflex to Culture Lab Routine Increased urinary frequency Expected: 03/14/2025 (Approximate), Expires: 03/14/2026 PSA, Total With Reflex to PSA, Free Lab Routine Increased urinary frequency Expected: 03/14/2025 (Approximate), Expires: 03/14/2026 documented as of this encounter Visit Diagnoses Diagnosis Paresthesias- Primary Disturbance of skin sensation Cerumen debris on tympanic membrane of right ear Coronary artery disease involving [place] coronary artery of [place] heart without angina pectoris Other emphysema (CMS/HCC) Other emphysema Primary hypertension Unspecified essential hypertension Increased urinary frequency Urinary frequency documented in this encounter Additional Health Concerns Assessment Noted Time PHQ-9 Depression Total Score: 15 025 9:03 AM EDT documented as of this encounter Care Teams Manager Sap Relationship Specialty Start Date End Date Nabil Lira MD [address] [place] [address] PCP - General Internal Medicine 07/12/18 documented as of this encounter
--- NOTE | ~2025-03-16 | CT_ITS ---
CLINICAL HISTORY: Follow-up rmh-azssi-gclr lung carcinoma. CT Chest with IV contrast: Comparison: 12/13/2024 Findings: Heart size is normal, with no pericardial effusion Aorta diameter is normal Pulmonary artery diameter is unremarkable Lymph nodes: No adenopathy Trachea and Esophagus: Unremarkable. No large airway obstruction Lungs: There is advanced emphysema with emphysematous blebs in the upper lung feliz. A right upper lobe 5.7 mm nodule, image 66 is stable and unchanged from prior exam. Few scattered smaller nonspecific nodules are also unchanged. Subpleural mild posterior reticular opacities are stable, may represent early signs of fibrotic lung disease.. Pleura: No pleural effusion. No pneumothorax. Skeletal: No fractures Below the diaphragm: The visualized portions of liver and spleen are unremarkable. Impression: Advanced bullous emphysema with no acute consolidation or infiltrate. Few scattered small pulmonary nodules are stable and unchanged. No new nodules. No acute findings. This document has been electronically signed by: Randy Sharma MD on 03/17/2025 14:08:25
--- OUTSIDE RECORDS SUMMARY | 2025-03-16 07:37 | XMS_ITS | Encounter Summary ---
Author Organization [employer] Address [address] [facility] 7 [place] [address] Care Team Providers Care Terminal Operations Supervisor Name Role Phone Nabil Lira MD Primary Care Provider [phone] Encounter Details Date Type Department Care Team (Latest Contact Info) Description 02/27/2022 Abstract [facility] CONVERSIONS Dental, Provider, DDS Social History [...] Description 03/22/2025 1:00 PM EDT Clinical Support [facility] [address] [place] [address] 04/11/2025 10:00 AM EDT Office Visit [facility] ADULT DENTAL [address] [place] [address] Carlie Garo [address] [place] [address] documented as of this encounter Visit Diagnoses Not on filedocumented in this encounter Care Teams Terminal Operations Supervisor Relationship Specialty Start Date End Date Nabil Lira MD [address] [place] [address] PCP - General Internal Medicine 07/12/18 documented as of this encounter
--- OUTSIDE RECORDS SUMMARY | 2025-03-16 07:37 | XMS_ITS | Encounter Summary ---
Author Organization [employer] Address [address] [place] [address] Care Team Providers Care Varitype Operator Name Role Phone Nabil Lira MD Primary Care Provider [phone] Encounter Details Date Type Department Care Team [...] 1:00 PM EDT Clinical Support [facility] [address] [place] [address] 04/11/2025 10:00 AM EDT Office Visit [facility] ADULT DENTAL [address] [place] [address] Garo Sxeton [address] [place] [address] documented as of this encounter Visit Diagnoses Not on filedocumented in this encounter Additional Health Concerns Assessment Noted Time PHQ-9 Depression Total Score: 15 025 9:03 AM EDT documented as of this encounter Care Teams Varitype Operator Relationship Specialty Start Date End Date Nabil Lira MD [address] [place] [address] PCP - General Internal Medicine 07/12/18 documented as of this encounter
--- OUTSIDE RECORDS SUMMARY | 2025-03-16 07:37 | XMS_ITS | Encounter Summary ---
Author Organization [employer] Address [address] [facility] 7t [place] [address] Care Team Providers Care Network Systems Operator Name Role Phone Nabil Lira MD Primary Care Provider [phone] Encounter Details Date Type Department Care Team ([facility] st Contact Info) Description 07/26/2024 Orders Only [facility] MED & PEDS [address] [place], [place] [phone] Nabil Lira MD [address] [place], [place] [phone] Social History Tobacco Use Types Packs/Day Years [...] [facility] [address] [place] [address] 04/11/2025 10:00 AM EDT Office Visit [facility] ADULT DENTAL [address] [place] [address] Garo Sexton [address] [place] [address] documented as of this encounter Visit Diagnoses Not on filedocumented in this encounter Additional Health Concerns Assessment Noted Time PHQ-9 Depression Total Score: 11 02/23/ 023 10:09 AM EDT documented as of this encounter Care Teams Network Systems Operator Relationship Specialty Start Date End Date Nabil Lira MD [address] [place] [address] PCP - General Internal Medicine 07/12/18 documented as of this encounter
--- OUTSIDE RECORDS SUMMARY | 2025-03-16 07:37 | XMS_ITS | Encounter Summary ---
Author Organization [employer] Address [address] [place] [address] 7 [place] [address] Care Team Providers Care Operations Research Manager Name Role Phone Nabil Lira MD Primary Care Provider [phone] Encounter Details Date Type Department Care Team (Latest Contact Info) Description 07/27/2018 Abstract [facility] CONVERSIONS Dental, Provider, DDS Social History [...] Description 03/22/2025 1:00 PM EDT Clinical Support [facility] MED & PEDS [address] [place] [address] 04/11/2025 10:00 AM EDT Office Visit [facility] ADULT DENT[facility] [address] [place] [address] Carlie, Garo [address] [place] [address] documented as of this encounter Visit Diagnoses Not on filedocumented in this encounter Care Teams Operations Research Manager Relationship Specialty Start Date End Date Nabil Lira MD [address] [place] [address] PCP - General Internal Medicine 07/12/18 documented as of this encounter
--- OUTSIDE RECORDS SUMMARY | 2025-03-16 07:37 | XMS_ITS | Encounter Summary ---
Author Organization [employer] Address [address] [facility] 7t [place] [address] Care Team Providers Care Pharmacy Technician Per Diem Name Role Phone Nabil Lira MD Primary Care Provider [phone] Encounter Details Date Type Department Care Team ([facility] st Contact Info) Description 03/14/2025 Orders Only [facility] MED [facility] PEDS [address] [place], [place] [phone] Nabil Lira MD [address] [place], [place] [phone] Paresthesias (Primary Dx); Other elevated white blood cell (WBC) count Social History Tobacco Use Types Packs/Day Years [...] the past 12 months, has t he [employer], gas, oil or water company threatened to [...] Clinical Support [facility] [address] [place] [address] 04/11/2025 10:00 AM EDT Office Visit [facility] [address] [place] [address] Garo Sexton [address] [place] [address] Scheduled Orders Name Type Priority Associated Diagnoses Orde r Schedule CBC auto differential Lab Routine Paresthesias Other elevated white blood cell (WBC) count Expected: 03/14/2025 (Approximate), Expires: 03/14/2026 documented as of this encounter Visit Diagnoses Diagnosis Paresthesias- Primary Disturbance of skin sensation Other elevated white blood cell (WBC) count documented in this encounter Additional Health Concerns Assessment Noted Time PHQ-9 Depression Total Score: 15 025 9:03 AM EDT documented as of this encounter Care Teams Pharmacy Technician Per Diem Relationship Specialty Start Date End Date Nabil Lira MD [address] [place] [phone] PCP - General Internal Medicine 07/12/18 documented as of this encounter
--- OUTSIDE RECORDS SUMMARY | 2025-03-16 07:37 | XMS_ITS | Encounter Summary ---
Author Organization [employer] Address [address] [facility] 7 [place] [address] Care Team Providers Care E Marketing Specialist Name Role Phone Nabil Lira MD Primary Care Provider [phone] Reason for Visit * Reason Onset Date Comments Chart Prep 03/13/2025 Encounter Details Date Type Department Care Team ([facility] st Contact Info) Description 03/13/2025 Telephone [facility] MED & PEDS [address] [place], [place] [phone] Nabil Lira MD 505 [place] [address] Chart Prep Social History Tobacco Use Types [...] the past 12 months, has t he [employer], gas, oil or water [employer] threatened to shut off services in your [...] Description 03/22/2025 1:00 PM EDT Clinical Support [facility] MED & PEDS [address] [place] [address] 04/11/2025 10:00 AM EDT Office Visit [facility] ADULT DENTAL [address] [place] [address] Garo Sexton 505 [place] [address] documented as of this encounter Visit Diagnoses Not on filedocumented in this encounter Additional Health Concerns Assessment Noted Time PHQ-9 Depression Total Score: 15 025 9:03 AM EDT documented as of this encounter Care Teams E Marketing Specialist Relationship Specialty Start Date End Date Nabil Lira MD [address] [place] [phone] PCP - General Internal Medicine 07/12/18 documented as of this encounter
--- OUTSIDE RECORDS SUMMARY | 2025-03-16 07:37 | XMS_ITS | Clinical Summary ---
Author Organization [employer] Address [address] [facility] 7t [place] [address] Care Team Providers Care Network Firewall Engineer Name Role Phone Nabil Lira MD Primary Care Provider [phone] Allergies No known active allergies Medications aspirin [...] 24 hr tabletIndications :Coronary artery disease involving nightmute coronary artery of nightmute heart without angina pectoris TAKE 1 TABLET [...] 80 MG tabletIndications :Coronary artery disease involving nightmute coronary artery of nightmute heart without angina pectoris TAKE 1 TABLET (80 MG) BY MOUTH IN THE MORNING 90 tablet 025 Active nortriptyline (Pamelor) 25 MG capsuleIndication s:Paresthesias Take 1 capsule (25 mg) by mouth at bedtime. 30 capsule 3 Active carbamide peroxide (Debrox) 6.5 % otic solutionIndicatio ns:Cerumen debris on tympanic membrane of right ear Administer 5-10 drops into affected ear(s) 2 times daily for 4 days. 30 mL 025 2024 Active b complex vitamins capsuleIndication s:Paresthesias Take 1 capsule by mouth Once per day. 30 capsule 11 025 2025 Active nortriptyline (Pamelor) 25 MG capsule Take 1 capsule by mouth 1 (one) time each day. 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 PEDS [address] [place] [address] Nabil Lira MD Paresthesias (Primary Dx); Cerumen debris on tympanic membrane of right ear; Coronary artery disease involving nightmute coronary artery of nightmute heart without angina pectoris; Other emphysema (CMS/HCC); Primary hypertension; Increased urinary frequency 03/14/[address] [facility] [address] [place] [address] Nabil Lira MD Paresthesias (Primary Dx); Other elevated white blood cell (WBC) count 03/14/2025 Travel 03/13/[address] [facility] P[facility] [address] [place] [address] Nabil Lira MD Chart Prep 03/06/2025 Patient Outreach [facility] [address] [place] [address] Nabil Lira MD Pre-visit Planning ([facility] screening completed on 09/20/24) 02/23/2025 1:30 PM EDT Office Visit [facility] ADULT D[facility]AL [address] [place] [address] Garo Sexton 02/23/[address] [facility] [address] [place] [address] Nabil Lira MD Appointment Request 01/18/2025 Refill [facility] [address] [place] [address] Nabil Lira MD Gastroesophageal reflux disease without esophagitis; Coronary artery disease involving nightmute coronary artery of nightmute heart without angina pectoris 12/22/2024 Refill [facility]ED[facility] [address] [place] [address] Nabil Lira MD Neck pain; Other osteoarthritis involving multiple joints from Last 3 Months Immunizations Immunization Administration [...] PM EDT Clinical Support [facility] [address] [place] [address] 04/11/2025 10:00 AM EDT Office Visit [facility] AD[facility] [address] [place] [address] Garo Sexton [address] [facility] [place] [address] Health Maintenance Due Date Last Done Comments CT Colonography 1965 Colonoscopy 1966 Colorectal Cancer Screening 1966 FIT DNA/Cologuard 1966 FIT 1966 FOBT 1966 Sigmoidoscopy 1966 Disability Screening 1966 Zoster Vaccines (1 of 2) 2016 Dental Oral Exam 01/24/2025 07/26/2024, , 09/01/2018, Additional history exists Dental Prophylaxis 01/24/2025 07/26/2024, 1 , 07/27/2018, Additional history exists COVID-19 Vaccine ( season) 2025 04/25/2021, 04/03/2021 Influenza Vaccine (#1) 2025 04/27/2013 Depression Monitoring 03/23/2025 09/20/2024, 025 Dental X-Ray: Bitewings 07/27/2025 07/26/19, 03/22/2023, 02/27/2022, Additional history exists Alcohol/Substance Use Screening 09/20/2025 09/20/2024 SDOH Screening 09/20/2025 09/20/2024 DTaP/Tdap/Td Vaccines (1 - Tdap) 03/14/2026 Postponed from 1985 (Patient Refused) Diabetes: Hemoglobin A1C 03/14/2026 03/14/2025, 07/ Hepatitis B Vaccines (1 of 3 - 19+ 3-dose series) 03/14/2026 Postponed from 1985 (Patient Refused) Pneumococcal Vaccine: 50+ Years (1 of 2 - PCV) 03/14/2026 Postponed from 1985 (Patient Refused) Tobacco Screening 03/14/2026 03/14/2025 Dental X-Ray: Full Mouth 03/23/2026 03/22/2023, 12/08/2012 Lipid Panel 03/14/2030 03/14/2025, 01/28/2022 RSV Patients and Patients Aged 60 years or older (1 - 1-dose 75+ series) 2041 Hepatitis C Screening Completed 09/17/2020 HIV Screening Completed 01/28/2022, 03/2021, 07/04/2019 HIB Vaccines Aged Out No longer [...] Procedure Name Priority Date/Time Associated Diagnosis Comments CBC WITH AUTO DIFFERENTIAL Routine 03/14/2025 2:09 PM EDT Coronary artery disease involving nightmute coronary artery of nightmute heart without angina pectoris Other fatigue Paresthesias VITAMIN B12/FOLATE, SERUM PANEL Routine 03/14/2025 2:09 PM EDT Coronary artery disease involving nightmute coronary artery of nightmute heart without angina pectoris Other fatigue Paresthesias HEMOGLOBIN A1C Routine 03/14/2025 2:09 PM EDT Coronary artery disease involving nightmute coronary artery of nightmute heart without angina pectoris LIPID PANEL, STANDARD Routine 03/14/2025 2:09 PM EDT Coronary artery disease involving nightmute coronary artery of nightmute heart without angina pectoris CASE PRESENTATION, DETAILED AND EXTENSIVE TREATMENT PLANNING [...] GENERATION W/RFL Routine 01/28/2022 4:03 PM EDT ZZZ HISTORICAL HEPATITIS C AB W/REFL TO HCV RNA, QN, PCR Routine 09/17/2020 2:39 PM EST from Last 3 Months or Most Recently Relevant to Health Maintenance Results * Vitamin B12/Folate, Serum Panel (03/14/2025 2:09 PM EDT) Vitamin B12 387 200 - 900 pg/mL [facility] Comment:NORMAL 200-900 PG/ML INDETERMINATE 160-199 PG/ML DEFICIENT < 160 PG/ML Folate 4.8 > or = 4.0 ng/mL [facility] Comment:Reference Values:> o r = 4.0 ng/mL< 4.0 ng/mL suggests folate deficiency Methotrexate, aminopterin and folinic acid(leucovorin) are chemotherapeutic agents whose molecularstructures are similar to folate; therefore, the Architectfolate assay cannot be used for patients using these drugs. Blood Venous blood specimen / Unknown 03/14/2025 2:09 PM EDT 03/14/2025 5:36 PM EDT us Nabil Lira MD LAB BLOOD ORDERABLES Final Result [facility] [address] [place] [address] [phone] * (ABNORMAL) CBC auto differential (03/14/2025 2:09 PM EDT) White Blood Count 11.4(H) 4.8 - 10.8 X10*3/uL [facility] Red Blood Count 5.43 4.60 - 5.80 X10*6/uL [facility] Hemoglobin 15.4 14.0 - 18.0 g/dl [facility] Hematocrit 47.1 42.0 - 52.0 % [facility] Mean Corpuscular Volume 86.7 80.0 - 98.0 fL [facility] Mean Corpuscular Hemoglobin 28.4 27.0 - 33.0 pg [facility] Mean Corpuscular HGB Conc 32.7 31.0 - 36.0 g/dl [facility] Red Cell Distribution Width 13.9 11.0 - 16.0 % [facility] Platelet Count 270 160 - 400 X10*3/uL [facility] Mean Platelet Volume 10.2 9.4 - 12.4 fL [facility] Neutrophils Percent Auto 57.3 45 - 73 % [facility] Imm Gran Pct Auto 0.4 0.0 - 0.4 % [facility] Lymphocytes Percent Auto 28.5 20 - 40 % [facility] Monocytes Percent Auto 9.9 2 - 11 % [facility] Eosinophils Percent Auto 2.9 0 - 4 % [facility] Basophils Percent Auto 1.0 0 - 2 % [facility] NRBC Pct Auto 0.0 0.0 - 0.2 /100WBC [facility] Neutrophils Absolute Auto 6.5 2.0 - 8.3 x10*3/uL [facility] Imm Gran Abs Auto 0.04(H) 0.00 - 0.03 X10*3/uL [facility] Lymphocytes Absolute Auto 3.2 1.2 - 4.9 X10*3/uL [facility] Monocytes Absolute Auto 1.1 0.1 - 1.2 X10*3/uL [facility] Eosinophils Absolute Auto 0.3 0.0 - 0.4 X10*3/uL [facility] Basophils Absolute Auto 0.1 0.0 - 0.2 X10*3/uL [facility] NRBC Abs Auto 0.000 0.0 - 0.012 X10*3/uL [facility] Blood Venous blood specimen / Unknown 03/14/2025 2:09 PM EDT 03/14/2025 5:36 PM EDT us Nabil Lira MD LAB BLOOD ORDERABLES Final Result Performing Organization Address [facility] Co de Phone Number [facility] [address] [place] [phone] * Hemoglobin A1c (03/14/2025 2:09 PM EDT) Hemoglobin A1c 5.9 <6.0 % [facility] Comment:Hemoglobin A1C Refer ence Range Adults: 4.8 - 6.0 % Non diabetic: < 6.0 % Goal: < 7.0 %Additional Action Suggested: > 8.0 %Note: Hemoglobin A1c results are invalid for patients with abnormal amounts of HbF. Blood transfusions may impact the HbA1c concentration in the patient sample. Estimated Average Glucose 123 mg/dL [facility] Comment:eAG = Estimated ave rage glucose which is %A1C expressed asaverage glucose, using the formula of the E2F-VqaomazQwembpi Glucose study (ADAG), Diabetes Care, Vol.31,#8,Feb. 2007 Blood Venous blood specimen / Unknown 03/14/2025 2:09 PM EDT 03/14/2025 5:36 PM EDT us Nabil Lira MD LAB BLOOD ORDERABLES Final Result Performing Organization Address [facility] Co de Phone Number [facility] [address] [place] [phone] * (ABNORMAL) Lipid Panel, Standard (03/14/2025 2:09 PM EDT) Triglycerides 143 <150 mg/dL [facility] Comment:Desirable Triglyceri de: less than 150 mg/dLBorderline High Triglyceride 150-199 mg/dLHigh Triglyceride: 200-499 mg/dLVery High Triglyceride: greater than or equal to 5OO mg/dL Cholesterol 113 <200 mg/dL [facility] Comment:Desirable Cholestero l: less than 200 mg/dLBorderline High Cholesterol: 200-239 mg/dLHigh Cholesterol: greater than 239 mg/dL LDL Cholesterol Calculated 47 <100 mg/dL [facility] Comment:Desirable LDL: less than 100 mg/dLNear Optimal/Above Optimal LDL: 110- 129 mg/dLBorderline High LDL: 130-159 mg/dLHigh LDL: 160-189 mg/dLVery High LDL: greater than or equal to 190 mg/dL HDL Cholesterol 38(L) >40 mg/dL [facility] Comment:Desirable HDL: great er than 40 mg/dL Note: This HDL assay may give artificially low results in patients with liver disease. Blood Venous blood specimen / Unknown 03/14/2025 2:09 PM EDT 03/14/2025 5:36 PM EDT us Nabil Lira MD LAB BLOOD ORDERABLES Final Result Performing Organization Address City/State/[facility] Co de Phone Number [facility] [address] [place] [address] [phone] * CT Chest w/ Contrast (12/15/2024 10:08 AM EDT) Anatomical Region Laterality Modality Body, Chest Computed Tomogra phy 12/15/2024 10:0 8 AM EDT Narrative 12/15/2024 10:10 AM EDT [place] [address] CT Scan Report Signed Patient: Javier Soni MR#: [id number] : 1965 Acct:[id number] Age/Sex: 59 / M ADM Date: 12/13/24 Loc: HO.CT Attending Dr: Demetrio Martinez MD Ordering Physician: Demetrio Martinez MD Date of Service: 12/13/24 Procedure(s): CT chest w IV con Accession Number(s): [id number] cc: Nabil Lira MD; Demetrio Martinez MD Report Number: [id number]: Total DLP = 128.00 mGy-cm CLINICAL HISTORY: Vvz-oueym-bomj lung carcinoma. CT chest with contrast Comparison: CT/SR - CT CHEST W IV CON - 07/06/24 08:[address]/IN/SR - CT CHEST W IV CON - [...] 12/15/24 1010 DD/ 1008 TD/TT: 12/15/24 1008 Radio Control Crane Operator: Procedure Note Donotuseinterpreter, Image - 12/15/[address] [place] [address] [address] Scan Report Signed Patient: Javier Soni AMR#: [id number] : 1965Acct:[id number] Age/Sex: 59 / MADM Date: 12/13/24 Loc: HO.CT Attending Dr: Demetrio Martinez MD Ordering Physician: Demetrio Martinez MD Date of Service: 12/13/24 Procedure(s): CT chest w IV con Accession Number(s): [id number] cc: Nabil Lira MD; Demetrio Martinez MD Report Number: [id number]: Total DLP = 128.00 mGy-cm CLINICAL HISTORY: Dlr-elduo-iuup lung carcinoma. CT chest with contrast Comparison: CT/SR - CT CHEST W IV CON - 07/06/24 08:[address]/IN/SR - CT CHEST W IV CON - [...] 12/15/24 1010 DD/ 1008 TD/TT: 12/15/24 1008 Radio Control Crane Operator: [facility] External Provider IMG CT PROCEDURES [...] purpose. For additional information please refer to http://education.[employer]/faq/PGP637 (This link is being provided for informational/ educational purposes only.) The performance of this assay has not been clinically validated in patients less than 2 years old. 01/28/2022 4:03 PM EDT Nabil Lira MD LAB BLOOD ORDERABLES Final Result [facility] [address] [place] [address], * HEPATITIS C AB W/REFL TO HCV RNA, QN, PCR (09/17/2020 2:39 PM EST) HEPATITIS C ANTIBODY NON-REACT RONNIE NON-REACT RONNIE [facility] INDEX 0.03 <1.00 [facility] Comment: HCV antibody was non-reactive. There is no laboratory evidence of HCV infection. In most cases, no further action is required. However, if recent HCV exposure is suspected, a test for HCV RNA (test code 37779) is suggested. For additional information please refer to http://[employer]/faq/IMR51g6 (This link is being provided for informational/ educational purposes only.) 09/17/2020 2:39 PM EST us Serafin Estrella MD HISTORICAL/NON ORDERABLE LABS Final Result [facility] [address] from Last 3 Months or Most Recently Relevant to Health Maintenance Insurance C[facility] MEDICAID STAND ADULT Care Teams Network Firewall Engineer Relationship Specialty Start Date End Date Nabil Lira MD [address] [place] [phone] PCP - General Internal Medicine 07/12/18
--- OUTSIDE RECORDS SUMMARY | 2025-03-16 07:37 | XMS_ITS | Encounter Summary ---
Author Organization [employer] Address [address] [facility] 7t [place] [address] Care Team Providers Care Metal Slitter Name Role Phone Nabil Lira MD Primary Care Provider [phone] Reason for Visit * Reason Onset Date Comments Results 03/15/2025 Lab Orders 03/15/2025 Encounter Details Date Type Department Care Team (Latest Contact Info) Description 03/15/2025 Results Follow-Up [facility] [address] [place] [address] Lucy Banerjee RN Lipid Panel, Standard, Hemoglobin A1c, Vitamin B12/Folate, Serum Panel, CBC auto differential Social History Tobacco Use Types Packs/Day Years [...] encounter Miscellaneous Notes * Telephone Encounter - Lucy Banerjee RN - 03/15/2025 9:26 AM EDT TC placed to pt to inform and advise of below PCP message. Advised pt low vit B12. Advised PCP recommends pt to start a supplementation. Advised PCP sent the medication to pt's pharmacy. Advised mildleucocytosis. Advised pt they will need a repeat level in a week or so to assess the trend. Pt verbalized understanding and denies questions at this time. ----- Message from Nabil Lira MD sent at 03/14/2025 9:15 PM EDT ----- Please call. Labs reviewed: 1) Low normal vit B12, I recommend to start a supplementation. I will send the medication to pt's pharmacy. 2)Mild leucocytosis. Pt will need a repeat level in a week or so to assess the trend. ----- Message ----- From: Interface, Lab Results In Sent: 03/14/2025 6:00 PM EDT To: Nabil Lira MD documented in this encounter Plan of Treatment Upcoming Encounters Date Type Department Care Team (Late st Contact Info) Description 03/22/2025 1:00 PM EDT Clinical Support [facility] [address] [place] [address] 04/11/2025 10:00 AM EDT Office Visit [facility] [address] [place] [address] Garo Sexton [address] [place] [address] documented as of this encounter Visit Diagnoses Not on filedocumented in this encounter Additional Health Concerns Assessment Noted Time PHQ-9 Depression Total Score: 15 025 9:03 AM EDT documented as of this encounter Care Teams Metal Slitter Relationship Specialty Start Date End Date Nabil Lira MD [address] [place] [address] PCP - General Internal Medicine 07/12/18 documented as of this encounter
--- OUTSIDE RECORDS SUMMARY | 2025-03-16 07:37 | XMS_ITS | Clinical Summary ---
Author Organization [employer] [facility] ity Address [address] [place] [address] Care Team Providers Care Patrol Driver Name Role Phone Unavailable Primary Care Provider [...]
[2025-03-16 07:57] LABS: MANUAL DIFF FLAG NO
[2025-03-16 08:10] LABS: Hematocrit 46.7 % (42.0-52.0); Hemoglobin 15.3 g/dl (14.0-18.0); Imm Gran Abs Auto 0.02 X10*3/uL (0.00-0.03); Imm Gran Pct Auto 0.3 % (0.0-0.4); Lymphocytes Absolute Auto 3.0 X10*3/uL (1.2-4.9); Mean Corpuscular HGB Conc 32.8 g/dl (31.0-36.0); Mean Corpuscular Hemoglobin 28.3 pg (27.0-33.0); Mean Corpuscular Volume 86.5 fL (80.0-98.0); NRBC Abs Auto 0.000 X10*3/uL (0.0-0.012); NRBC Pct Auto 0.0 /100WBC (0.0-0.2); Platelet Count 232 X10*3/uL (160-400); Red Blood Count 5.40 X10*6/uL (4.60-5.80); White Blood Count 7.8 X10*3/uL (4.8-10.8)
[2025-03-16 08:28] LABS: Appearance Urine Clear; Glucose Urine UA Negative (Negative); PH 7.5 (5.0-9.0); Specific Gravity - Urine 1.020 (1.005-1.025)
[2025-03-16 08:32] LABS: Alanine Aminotransferase 30 U/L (0-40); Albumin Level 4.2 g/dL (3.5-5.0); Alkaline Phosphatase 88 U/L (39-117); Anion Gap 12 (12-20); Aspartate Amino Transferase 26 U/L (5-37); Blood Urea Nitrogen 14 mg/dL (9-16); Calcium 8.8 mg/dL (8.4-10.2); Carbon Dioxide 25 mmol/L (22-29); Chloride 106 mmol/L (96-108); Estimated Glomerular Filt Rate > 60; Potassium 4.2 mmol/L (3.3-5.1); Sodium 139 mmol/L (135-145); Total Protein 7.4 g/dL (6.5-8.0)
[2025-03-16 08:56] LABS: PSA,Total (Free>4and<10) 0.51 ng/mL (0.00-4.00)
[2025-03-16] MEDS: iohexoL 350 MG/ML 100 ML INFUS..BTL IV (09:25)
== END 2025-03-16 07:35 | disposition home or self-care (01) ==
LOC: HO.CT 07:34
PROVIDERS: Absent Provider Internal Medicine; PCP Internal Medicine; Visit Provider Internal Medicine Medical Oncology
DX: R20.2 Paresthesia of skin (principal); D72.828 Other elevated white blood cell count; R35.0 Frequency of micturition; C34.92 Malignant neoplasm of unspecified part of left bronchus or lung
CPT/HCPCS: 36415; 71260; 80053; 81001; 84153; 85025; Q9967

== ENCOUNTER → 2025-03-16 08:00 | Outpatient (BNV) | payer MEDICAID, SELFPAY | PROVIDERS: Absent Provider Internal Medicine; PCP Internal Medicine; Visit Provider Radiology Diagnostic Radiology | DX: J43.9 Emphysema, unspecified (principal) | CPT/HCPCS: 71260 ==

== ENCOUNTER 2025-04-12 18:56 | Outpatient (REF) | payer MEDICAID, SELFPAY ==
--- NOTE | ~2025-04-12 | MR_ITS ---
CLINICAL HISTORY: Neck pain, numbness tingling left upper extremity. --- Additional Notes or Special Instructions: Otj-pujej-rbfj lung carcinoma MR cervical spine without gadolinium Comparison: None provided Findings: Cervical spine lordosis is maintained. No fracture or subluxation. No spondylolisthesis. No pathologic marrow signal abnormalities. Visualized cervical and upper thoracic spinal cord demonstrates normal signal characteristics. Patent and unremarkable craniocervical junction. C2-C3: Mild disc space narrowing and disc degeneration. No disc herniation or central canal stenosis. Minimal narrowing of bilateral neural foramina on the basis of facet and uncovertebral spurring. C3-C4: Mild disc space narrowing and disc degeneration. Mild broad-based disc herniation without significant spinal canal stenosis. Neural foramina are mildly narrowed on the right and moderately narrowed on the left. Facet arthropathy. C4-C5: Moderate disc space narrowing and disc degeneration. Small posterior disc osteophyte complex without significant spinal canal stenosis. Mild right-sided and moderate left-sided neural foraminal stenosis on the basis of facet and uncovertebral spurring. C5-C6: Moderate disc space narrowing and disc degeneration. Posterior disc osteophyte complex with more focal right paracentral zone disc protrusion. There is ventral effacement of thecal sac with exdv-ni-nrsvibtd mass effect/compression of the cervical spinal cord at this level. No cord signal abnormalities. Overall, moderate narrowing of spinal canal. Moderate right-sided and severe left-sided neural foraminal stenosis. C6-C7 moderate disc space narrowing and disc degeneration. Posterior disc osteophyte complex effacing ventral thecal sac and mildly indenting ventral margin of cervical spinal cord at this level. Mild narrowing of spinal canal. Moderate narrowing of bilateral neural foramina on the basis of facet and uncovertebral spurring. C7-T1: No disc herniation, central canal or significant neural foramina stenosis. No acute findings within visualized paraspinal soft tissues. Visualized lower intracranial content is unremarkable. Impression: 1. 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 2. Additional chronic/nonacute findings as above. This document has been electronically signed by: Emi Keith MD on 04/12/2025 20:23:27
--- OUTSIDE RECORDS SUMMARY | 2025-04-12 19:04 | XMS_ITS | Encounter Summary ---
Author Organization [employer] Address [address] [facility] 7t [place] [address] Care Team Providers Care Salesperson Furs Name Role Phone Nabil Lira MD Primary Care Provider [phone] Encounter Details Date Type Department Care Team (Latest Contact Info) Description 03/16/2025 Results Follow-Up [facility] [address] [place], [place] [phone] Nabil Lira MD [address] [place], [place] [phone] Comprehensive Metabolic Panel, Urinalysis, Complete, with Reflex to Culture, PSA, Total With Reflex to PSA, Free Social History Tobacco Use Types Packs/Day Years [...] Care Team (Late st Contact Info) Description 04/27/2025 4:00 PM EDT Office Visit [facility] [address] [place] [address] Nabil Lira MD [address] [place] [address] documented as of this encounter Visit Diagnoses Not on filedocumented in this encounter Additional Health Concerns Assessment Noted Time PHQ-9 Depression Total Score: 15 025 9:03 AM EDT documented as of this encounter Care Teams Salesperson Furs Relationship Specialty Start Date End Date Nabil Lira MD [address] [place] [address] PCP - General Internal Medicine 07/12/18 documented as of this encounter
--- OUTSIDE RECORDS SUMMARY | 2025-04-12 19:04 | XMS_ITS | Encounter Summary ---
Author Organization [employer] Address [address] [facility] [address] [place] [address] Care Team Providers Care Geophysical Operator Name Role Phone Nabil Lira MD Primary Care Provider [phone] Encounter Details Date Type Department Care Team (Latest Contact Info) Description 02/27/2022 Abstract [facility] CONVERSIONS Dental, Provider, DDS Social History [...] Description 04/27/2025 4:00 PM EDT Office Visit [facility]S [address] [place] [address] Nabil Lira MD [address] [place] [address] documented as of this encounter Visit Diagnoses Not on filedocumented in this encounter Care Teams Geophysical Operator Relationship Specialty Start Date End Date Nabil Lira MD [address] [place] [address] PCP - General Internal Medicine 07/12/18 documented as of this encounter
--- OUTSIDE RECORDS SUMMARY | 2025-04-12 19:04 | XMS_ITS | Encounter Summary ---
Author Organization [employer] Address [address] [facility] [address] [place] [address] Care Team Providers Care Cloth Washer Operator Name Role Phone Nabil Lira MD Primary Care Provider [phone] Encounter Details Date Type Department Care Team ([facility] st Contact Info) Description 07/26/2024 Orders Only [facility] MED & PEDS [address] [place], [place] [phone] Nabil Lira MD [address] [place], [place] [phone] Social History Tobacco Use Types Packs/Day Years [...] Upcoming Encounters Date Type Department Care Team ([facility] st Contact Info) Description 04/27/2025 4:00 PM EDT Office Visit [facility] MED & PEDS [address] [place] [address] Nabil Lira MD [address] [place] [address] documented as of this encounter Visit Diagnoses Not on filedocumented in this encounter Additional Health Concerns Assessment Noted Time PHQ-9 Depression Total Score: 11 023 10:09 AM EDT documented as of this encounter Care Teams Cloth Washer Operator Relationship Specialty Start Date End Date Nabil Lira MD [address] [place] [address] PCP - General Internal Medicine 07/12/18 documented as of this encounter
--- OUTSIDE RECORDS SUMMARY | 2025-04-12 19:04 | XMS_ITS | Encounter Summary ---
Author Organization [employer] Address [address] [facility] [address] [place] [address] Care Team Providers Care Cma Name Role Phone Nabil Lira MD Primary Care Provider [phone] Encounter Details Date Type Department Care Team ([facility] st Contact Info) Description 03/14/2025 Orders Only [facility] CHC MED & PEDS [address] [place], [place] [phone] Nabil Lira MD [address] [place], [place] [phone] Paresthesias (Primary Dx); Other elevated white blood [...] t he electric, gas, oil or water [employer] threatened to shut off services in your [...] Description 04/27/2025 4:00 PM EDT Office Visit [facility] MED & PEDS [address] [place] [address] Nabil Lira MD [address] [place] [address] documented as of this encounter Procedures Procedure Name Priority Date/Time Associated Diagnosis Comments CT CHEST W CONTRAST Routine 03/17/2025 2 :08 PM EDT CBC WITH AUTO DIFFERENTIAL Routine 03/16/2025 7:56 AM EDT Paresthesias Other elevated white blood cell (WBC) count documented in this encounter Results * CT Chest w/ Contrast (03/17/2025 2:08 PM EDT) Anatomical Region Laterality Modality Body, Chest Computed Tomogra phy 03/17/2025 2:08 PM EDT Narrative 03/17/2025 2:10 PM EDT [address] [address] [address] Scan Report Signed Patient: Javier Soni MR#: [id number] : 1965 Acct:[id number] Age/Sex: 59 / M ADM Date: 03/16/25 Loc: HO.CT Attending Dr: Demetrio Martinez MD Ordering Physician: Demetrio Martinez MD Date of Service: 03/16/25 Procedure(s): CT chest w IV con Accession Number(s): [id number] cc: Nabil Lira MD; Demetrio Martinez MD Report Number: [id number]: Total DLP = 143.00 mGy-cm Reason for Exam: Follow-up kux-xlxwf-atvw lung carcinoma. CLINICAL HISTORY: Follow-up vbx-sksfo-ihjw lung carcinoma. CT Chest with IV contrast: Comparison: 12/13/2024 Findings: Heart size is normal, with no pericardial effusion Aorta diameter is normal Pulmonary artery diameter is unremarkable Lymph nodes: No adenopathy Trachea and Esophagus: Unremarkable. No large airway obstruction Lungs: There is advanced emphysema with emphysematous blebs in the upper lung feliz. A right upper lobe 5.7 mm nodule, image 66 is stable and unchanged from prior exam. Few scattered smaller nonspecific nodules are also unchanged. Subpleural mild posterior reticular opacities are stable, may represent early signs of fibrotic lung disease.. Pleura: No pleural effusion. No pneumothorax. Skeletal: No fractures Below the diaphragm: The visualized portions of liver and spleen are unremarkable. Impression: Advanced bullous emphysema with no acute consolidation or infiltrate. Few scattered small pulmonary nodules are stable and unchanged. No new nodules. No acute findings. This document has been electronically signed by: Randy Sharma MD on 03/17/2025 14:08:25 Dictated By: Randy Sharma MD Signed By: <Electronically signed by Randy Sharma MD in OV> 03/17/25 1409 DD/ 1408 TD/TT: 03/17/25 140 Analytical Data Miner: Procedure Note Donotuseinterpreter, Image - 03/17/[address] [address] [address] Scan Report Signed Patient: Javier Soni AMR#: [id number] : 1965Acct:[id number] Age/Sex: 59 / MADM Date: 03/16/25 Loc: HO.CT Attending Dr: Demetrio Martinez MD Ordering Physician: Demetrio Martinez MD Date of Service: 03/16/25 Procedure(s): CT chest w IV con Accession Number(s): [id number] cc: Nabil Lira MD; Demetrio Martinez MD Report Number: [id number]: Total DLP = 143.00 mGy-cm Reason for Exam: Follow-up coj-lczgx-mxcv lung carcinoma. CLINICAL HISTORY: Follow-up qzt-alvlg-ffxt lung carcinoma. CT Chest with IV contrast: Comparison: 12/13/2024 Findings: Heart size is normal, with no pericardial effusion Aorta diameter is normal Pulmonary artery diameter is unremarkable Lymph nodes: No adenopathy Trachea and Esophagus: Unremarkable. No large airway obstruction Lungs: There is advanced emphysema with emphysematous blebs in the upper lung feliz. A right upper lobe 5.7 mm nodule, image 66 is stable and unchanged from prior exam. Few scattered smaller nonspecific nodules are also unchanged. Subpleural mild posterior reticular opacities are stable, may represent early signs of fibrotic lung disease.. Pleura: No pleural effusion. No pneumothorax. Skeletal: No fractures Below the diaphragm: The visualized portions of liver and spleen are unremarkable. Impression: Advanced bullous emphysema with no acute consolidation or infiltrate. Few scattered small pulmonary nodules are stable and unchanged. No new nodules. No acute findings. This document has been electronically signed by: Randy Sharma MD on 03/17/2025 14:08:25 Dictated By: Randy Sharma MD Signed By: <Electronically signed by Randy Sharma MD in OV> 03/17/25 1409 DD/ 1408 TD/TT: 03/17/25 1408 Analytical Data Miner: [facility] External Provider IMG CT PROCEDURES Final Result * (ABNORMAL) CBC auto differential (03/16/2025 7:56 AM EDT) White Blood Count 7.8 4.8 - 10.8 X10*3/uL [facility] Red Blood Count 5.40 4.60 - 5.80 X10*6/uL [facility] Hemoglobin 15.3 14.0 - 18.0 g/dl [facility] Hematocrit 46.7 42.0 - 52.0 % [facility] Mean Corpuscular Volume 86.5 80.0 - 98.0 fL [facility] Mean Corpuscular Hemoglobin 28.3 27.0 - 33.0 pg [facility] Mean Corpuscular HGB Conc 32.8 31.0 - 36.0 g/dl [facility] Red Cell Distribution Width 14.0 11.0 - 16.0 % [facility] Platelet Count 232 160 - 400 X10*3/uL [facility] Mean Platelet Volume 9.9 9.4 - 12.4 fL [facility] Neutrophils Percent Auto 46.8 45 - 73 % [facility] Imm Gran Pct Auto 0.3 0.0 - 0.4 % [facility] Lymphocytes Percent Auto 38.3 20 - 40 % [facility] Monocytes Percent Auto 8.8 2 - 11 % [facility] Eosinophils Percent Auto 4.6(H) 0 - 4 % [facility] Basophils Percent Auto 1.2 0 - 2 % [facility] NRBC Pct Auto 0.0 0.0 - 0.2 /100WBC [facility] Neutrophils Absolute Auto 3.7 2.0 - 8.3 x10*3/uL [facility] Imm Gran Abs Auto 0.02 0.00 - 0.03 X10*3/uL [facility] Lymphocytes Absolute Auto 3.0 1.2 - 4.9 X10*3/uL [facility] Monocytes Absolute Auto 0.7 0.1 - 1.2 X10*3/uL [facility] Eosinophils Absolute Auto 0.4 0.0 - 0.4 X10*3/uL [facility] Basophils Absolute Auto 0.1 0.0 - 0.2 X10*3/uL [facility] NRBC Abs Auto 0.000 0.0 - 0.012 X10*3/uL [facility] Blood Venous blood specimen / Unknown 03/16/2025 7:56 AM EDT 03/16/2025 7:56 AM EDT Nabil Lira MD LAB BLOOD ORDERABLES Final Result [facility] [address] [place] [address] [phone] documented in this encounter Visit Diagnoses Diagnosis Paresthesias- Primary Disturbance of skin sensation Other elevated white blood cell (WBC) count documented in this encounter Additional Health Concerns Assessment Noted Time PHQ-9 Depression Total Score: 15 09/20/2 025 9:03 AM EDT documented as of this encounter Care Teams Cma Relationship Specialty Start Date End Date Nabil Lira MD [address] [place] [phone] PCP - General Internal Medicine 07/12/18 documented as of this encounter
--- OUTSIDE RECORDS SUMMARY | 2025-04-12 19:04 | XMS_ITS | Encounter Summary ---
Author Organization [employer] Address [address] [facility] [address] [place] [address] Care Team Providers Care Mill Representative Name Role Phone Nabil Lira MD Primary Care Provider [phone] Encounter Details Date Type Department Care Team (Latest Contact Info) Description 07/27/2018 Abstract [facility] CONVERSIONS Dental, Provider, DDS Social History [...] Description 04/27/2025 4:00 PM EDT Office Visit [facility] CHC MED & PEDS [address] [place] [address] Nabil Lira MD [address] [place] [address] documented as of this encounter Visit Diagnoses Not on filedocumented in this encounter Care Teams Mill Representative Relationship Specialty Start Date End Date Nabil Lira MD [address] [place] [address] PCP - General Internal Medicine 07/12/18 documented as of this encounter
--- OUTSIDE RECORDS SUMMARY | 2025-04-12 19:04 | XMS_ITS | Clinical Summary ---
Author Organization [employer] Address [address] [facility] [address] [place] [address] Care Team Providers Care Pressure Testing Technician Name Role Phone Nabil Lira MD Primary Care Provider [phone] Allergies No known active allergies Medications aspirin [...] 24 hr tabletIndications :Coronary artery disease involving round valley coronary artery of round [place] heart without angina pectoris TAKE 1 TABLET [...] 80 MG tabletIndications :Coronary artery disease involving round [place] coronary artery of round [place] heart without angina pectoris TAKE 1 TABLET (80 MG) BY MOUTH IN THE MORNING 90 tablet 025 Active nortriptyline (Pamelor) 25 MG capsuleIndication s:Paresthesias Take 1 capsule (25 mg) by mouth at bedtime. 30 capsule 3 025 Active b complex vitamins capsuleIndication s:Paresthesias Take 1 capsule by mouth Once per day. 30 capsule 11 025 2025 Active nortriptyline (Pamelor) 25 MG capsule Take 1 capsule by mouth 1 (one) time each day. 022 2024 Discontinued(R eorder (will not trigger notification to Pharmacy)) carbamide peroxide (Debrox) 6.5 % otic solutionIndicatio ns:Cerumen debris on tympanic membrane of right ear Administer 5-10 drops into affected ear(s) 2 times daily for 4 days. 30 mL 025 2024 Active Problems Problem Noted Date Diagnosed Date Primary hypertension 09/19/2024 Coronary arteriosclerosis 06/15/2022 Pulmonary emphysema 06/15/2022 Adrenal carcinoma ([facility]/HCC) 03/12/2022 Hypoalbuminemia 01/29/2022 Centriacinar emphysema (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 Osteopenia 09/12/2010 Compression fracture 05/12/2010 Encounters Date Type Department Care Team Description 03/22/2025 1:00 PM EDT Clinical Support [facility] [address] [place] [address] Leann Mccloud RN Bilateral impacted cerumen [H61.23] 03/22/2025 Telephone [facility] [address] [place] [phone] Nabil Lira MD Lab Orders 03/22/2025 Travel 03/16/2025 Results Follow-Up [facility] [address] [place] [address] Nabil Lira MD Comprehensive Metabolic Panel, Urinalysis, Complete, with Reflex to Culture, PSA, Total With Reflex to PSA, Free 03/16/2025 Results Follow-Up [address] [address] Daniella Babcock, RN CBC auto differential 03/15/2025 Results Follow-Up [address] [address] Lucy Banerjee RN Lipid Panel, Standard, Hemoglobin A1c, Vitamin B12/Folate, Serum Panel, CBC auto differential 03/14/2025 2:45 PM EDT Office Visit [facility] [address] [place] [address] Nabil Lira MD Paresthesias (Primary Dx); Cerumen debris on tympanic membrane of right ear; Coronary artery disease involving round valley coronary artery of round valley heart without angina pectoris; Other emphysema ([facility]); Primary hypertension; Increased urinary frequency 03/14/2025 Orders Only [facility] [address] [place] [address] Nabil Lira MD Paresthesias (Primary Dx); Other elevated white blood cell (WBC) count 03/14/2025 Travel 03/13/2025 Telephone [facility] [address] [place] [address] Nabil Lira MD Chart Prep 03/06/2025 Patient Outreach [facility] [address] [place] [address] Nabil Lira MD Pre-visit Planning (SDOH screening completed on 09/20/24) 02/23/2025 1:30 PM EDT Office Visit [facility] [address] [place] [address] Zach Sextonio 02/23/2025 Telephone [facility] [address] [place] [address] Nabil Lira MD Appointment Request 01/18/2025 Refill [facility] [address] [place] [address] Nabil Lira MD Gastroesophageal reflux disease without esophagitis; Coronary artery disease involving round valley coronary artery of round [place] heart without angina pectoris from Last 3 Months Immunizations Immunization Administration [...] Description 04/27/2025 4:00 PM EDT Office Visit [facility] [address] [place] [address] Nabil Lira MD [address] [place] [address] Health Maintenance Due Date Last Done Comments [...] 03/14/2025 Dental X-Ray: Full Mouth 03/23/2026 03/22/2023, 08/2012 Lipid Panel 03/14/2030 03/14/2025, 01/28/2022 RSV Patients [...] Other elevated white blood cell (WBC) count PSA, TOTAL WITH REFLEX TO PSA, FREE Routine 03/16/2025 7:56 AM EDT Increased urinary frequency COMPREHENSIVE METABOLIC PANEL Routine 03/16/2025 7:56 AM EDT Paresthesias URINALYSIS, COMPLETE, WITH REFLEX TO CULTURE Routine 03/16/2025 7:55 AM EDT Increased urinary frequency CBC WITH AUTO DIFFERENTIAL Routine 03/14/2025 2:09 PM EDT Coronary artery disease involving round [place] coronary artery of round [place] heart without angina pectoris Other fatigue Paresthesias VITAMIN B12/FOLATE, SERUM PANEL Routine 03/14/2025 2:09 PM EDT Coronary artery disease involving round [place] coronary artery of round [place] heart without angina pectoris Other fatigue Paresthesias HEMOGLOBIN A1C Routine 03/14/2025 2:09 PM EDT Coronary artery disease involving round valley coronary artery of round [place] heart without angina pectoris LIPID PANEL, STANDARD Routine 03/14/2025 2:09 PM EDT Coronary artery disease involving round valley coronary artery of round [place] heart without angina pectoris CASE PRESENTATION, DETAILED AND EXTENSIVE TREATMENT PLANNING Routine 02/23/2025 1:30 PM EDT 3 MO RESIN-BASED COMPOSITE - 2 SURF, POSTERIOR Routine 02/23/2025 1:30 PM EDT Full PROPHYLAXIS - ADULT Routine 07/26/2024 [...] Maintenance Results * CT Chest w/ Contrast (03/17/2025 2:08 PM EDT) Anatomical Region Laterality Modality Body, Chest Computed Tomogra phy 03/17/2025 2:08 PM EDT Narrative 03/17/2025 2:10 PM EDT [address] [address] [address] Scan Report Signed Patient: Javier Soni MR#: [id number] : 1965 Acct:[id number] Age/Sex: 59 / M ADM Date: 03/16/25 Loc: HO.CT Attending Dr: Demetrio Martinez MD Ordering Physician: Demetrio Martinez MD Date of Service: 03/16/25 Procedure(s): CT chest w IV con Accession Number(s): [id number] cc: Nabil Lira MD; Demetrio Martinez MD Report Number: [id number]: Total DLP = 143.00 mGy-cm Reason for Exam: Follow-up ely-tdxte-taxl lung carcinoma. CLINICAL HISTORY: Follow-up igo-andnq-ewux lung carcinoma. CT Chest with IV contrast: [...] 03/17/25 1409 DD/ 1408 TD/TT: 03/17/25 140 Intermediate Designer: Procedure Note Donotuseinterpreter, Image - 03/17/[address] [address] [address] Scan Report Signed Patient: Jaiver Soni AMR#: [id number] : 1965Acct:[id number] Age/Sex: 59 / MADM Date: 03/16/25 Loc: HO.CT Attending Dr: Demetrio Martinez MD Ordering Physician: Demetrio Martinez MD Date of Service: 03/16/25 Procedure(s): CT chest w IV con Accession Number(s): [id number] cc: Naibl Lira MD; Demetrio Martinez MD Report Number: [id number]: Total DLP = 143.00 mGy-cm Reason for Exam: Follow-up idb-wuwhf-vton lung carcinoma. CLINICAL HISTORY: Follow-up gdt-qiysb-igzi lung carcinoma. CT Chest with IV contrast: [...] 03/17/25 1409 DD/ 1408 TD/TT: 03/17/25 140 Intermediate Designer: [facility] External Provider IMG CT PROCEDURES Final Result * PSA, Total With Reflex to PSA, Free (03/16/2025 7:56 AM EDT) Pathologist [facility] PSA,Total (Free>4and<10) 0.51 0.00 - 4.00 ng/mL [facility] Comment:A Free PSA was not p erformed: The percentage of Free PSA can be used to enhance the differentiation of prostate cancer from benign prostatic disease in subjects whose PSA levels are between 4.0 and 10.0 ng/mL. For subjects whose PSA levels are below 4.0 or above 10.0 ng/mL, the risk of prostate cancer is determined on the basis of the PSA alone. Therefore the % Free PSA is recommended only for those subjects whose PSA levels are between 4.0 and 10.0 ng/mL.PSA methodology: Fuentes Alinity i ChemiluminescentMicroparticle Immunoassay (CMIA) 03/16/2025 7:56 AM EDT 03/16/2025 7:56 AM EDT us Nabil Lira MD LAB BLOOD ORDERABLES Final Result [facility] [address] [place] [phone] * (ABNORMAL) CBC auto differential (03/16/2025 7:56 AM EDT) Only the most recent of2 resultswithin the time period is included. Pathologist [facility] White Blood Count 7.8 4.8 - 10.8 X10*3/uL [facility] Red Blood Count 5.40 4.60 - 5.80 X10*6/uL [facility] Hemoglobin 15.3 14.0 - 18.0 g/dl [facility] Hematocrit 46.7 42.0 - 52.0 % [facility] Mean Corpuscular Volume 86.5 80.0 - 98.0 fL [facility] Mean Corpuscular Hemoglobin 28.3 27.0 - 33.0 pg [facility] Mean Corpuscular HGB Conc 32.8 31.0 - 36.0 g/dl [facility] Red Cell Distribution Width 14.0 11.0 - 16.0 % [facility] Platelet Count 232 160 - 400 X10*3/uL [facility] Mean Platelet Volume 9.9 9.4 - 12.4 fL [facility] Neutrophils Percent Auto 46.8 45 - 73 % [facility] Imm Gran Pct Auto 0.3 0.0 - 0.4 % [facility] Lymphocytes Percent Auto 38.3 20 - 40 % [facility] Monocytes Percent Auto 8.8 2 - 11 % [facility] Eosinophils Percent Auto 4.6(H) 0 - 4 % [facility] Basophils Percent Auto 1.2 0 - 2 % [facility] NRBC Pct Auto 0.0 0.0 - 0.2 /100WBC [facility] Neutrophils Absolute Auto 3.7 2.0 - 8.3 x10*3/uL [facility] Imm Gran Abs Auto 0.02 0.00 - 0.03 X10*3/uL [facility] Lymphocytes Absolute Auto 3.0 1.2 - 4.9 X10*3/uL [facility] Monocytes Absolute Auto 0.7 0.1 - 1.2 X10*3/uL [facility] Eosinophils Absolute Auto 0.4 0.0 - 0.4 X10*3/uL [facility] Basophils Absolute Auto 0.1 0.0 - 0.2 X10*3/uL [facility] NRBC Abs Auto 0.000 0.0 - 0.012 X10*3/uL [facility] Blood Venous blood specimen / Unknown 03/16/2025 7:56 AM EDT 03/16/2025 7:56 AM EDT us Nabil Lira MD LAB BLOOD ORDERABLES Final Result [facility] [address] [place] [phone] * Comprehensive Metabolic Panel (03/16/2025 7:56 AM EDT) Sodium 139 135 - 145 mmol/L [facility] Potassium 4.2 3.3 - 5.1 mmol/L [facility] Chloride 106 96 - 108 mmol/L [facility] Carbon Dioxide 25 22 - 29 mmol/L [facility] Anion Gap 12 12 - 20 [facility] Urea Nitrogen (BUN) 14 9 - 16 mg/dL [facility] Creatinine, Serum 0.86 0.5 - 1.4 mg/dL [facility] Estimated Glomerular Filt Rate >60 [facility] Comment:Chronic Kidney Disea se: Estimated GFR < 60 mL/min/1.04n2Fxvykc Kidney Disease: Estimated GFR < 15 mL/min/1.73m2 Glucose 106 60 - 115 mg/dL [facility] Calcium 8.8 8.4 - 10.2 mg/dL [facility] Bilirubin, Total 0.4 0.0 - 1.0 mg/dL [facility] Aspartate Amino Transferase 26 5 - 37 U/L [facility] Alanine Aminotransferase 30 0 - 40 U/L [facility] Total Protein 7.4 6.5 - 8.0 g/dL [facility] Albumin Level 4.2 3.5 - 5.0 g/dL [facility] Alkaline Phosphatase 88 39 - 117 U/L [facility] Blood Venous blood specimen / Unknown 03/16/2025 7:56 AM EDT 03/16/2025 7:56 AM EDT us Nabil Lira MD LAB BLOOD ORDERABLES Final Result [facility] [address] [place] [phone] [phone] * Urinalysis, Complete, with Reflex to Culture (03/16/2025 7:55 AM EDT) Color Urine Yellow [facility] Appearance Urine Clear [facility] PH 7.5 5.0 - 9.0 [facility] Glucose Urine UA Negative Negative mg/dL [facility] Urine Blood Negative Negative [facility] Specific [place] - Urine 1.020 1.005 - 1.025 [facility] Urine Protein Negative Neg-Trace mg/dL [facility] Urine Ketones Negative Negative mg/dL [facility] Nitrite Urine Negative Negative [facility] Leukocyte Esterase Urine Negative Negative [facility] RBC Urine 0-2 0 - 2 /HPF [facility] Urine WBC 0-5 0 - 5 /HPF [facility] Urine Squamous Epithelial Cell 0-2 0 - 2 /HPF [facility] Urine Bacteria None Seen None Seen [facility] Hyaline Casts, Urine 0-2 0 - 2 /LPF [facility] Urine 03/16/2025 7:55 AM EDT 03/16/2025 8:22 AM EDT Narrative [facility] - 03/16/2025 8:35 AM EDT Urine, Clean Catch us Nabil Lira MD LAB URINE ORDERABLES Final Result [facility] [address] [place] [phone] * Vitamin B12/Folate, Serum Panel (03/14/2025 2:09 PM EDT) Vitamin B12 387 200 - 900 pg/mL [facility] Comment:NORMAL 200-900 PG/ML INDETERMINATE 160-199 PG/ML DEFICIENT < 160 PG/ML Folate 4.8 > or = 4.0 ng/mL [facility] Comment:Reference Values:> o r = 4.0 [...] BLOOD ORDERABLES Final Result Performing Organization Address City/[facility]/ZIP Co de Phone Number [facility] [address] [place] [phone] * Hemoglobin A1c (03/14/2025 2:09 PM EDT) Hemoglobin A1c 5.9 <6.0 % [facility] Comment:Hemoglobin A1C Refer ence Range Adults: 4.8 - 6.0 % Non diabetic: < 6.0 % Goal: < 7.0 %Additional Action Suggested: > 8.0 %Note: Hemoglobin A1c results are invalid for patients with abnormal amounts of HbF. Blood transfusions may impact the HbA1c concentration in the patient sample. Estimated Average Glucose 123 mg/dL [facility] Comment:eAG = Estimated ave rage glucose which is %A1C expressed asaverage glucose, using the formula of the J4I-KvvdkgdHzkiujy Glucose study (ADAG), Diabetes Care, Vol.31,#8,Feb. 2007 Blood Venous blood specimen / Unknown 03/14/2025 2:09 PM EDT 03/14/2025 5:36 PM EDT us Nabil Lira MD LAB BLOOD ORDERABLES Final Result Performing Organization Address [facility]/ZIP Co de Phone Number [facility] [address] [place] [phone] * (ABNORMAL) Lipid Panel, Standard (03/14/2025 2:09 PM EDT) Triglycerides 143 <150 mg/dL [facility] Comment:Desirable Triglyceri de: less than 150 mg/dLBorderline High Triglyceride 150-199 mg/dLHigh Triglyceride: 200-499 mg/dLVery High Triglyceride: greater than or equal to 5OO mg/dL Cholesterol 113 <200 mg/dL [facility] Comment:Desirable Cholestero l: less than 200 mg/dLBorderline High Cholesterol: 200-239 mg/dLHigh Cholesterol: greater than 239 mg/dL LDL Cholesterol Calculated 47 <100 mg/dL [facility] Comment:Desirable LDL: less than 100 mg/dLNear Optimal/Above Optimal LDL: 110- 129 mg/dLBorderline High LDL: 130-159 mg/dLHigh LDL: 160-189 mg/dLVery High LDL: greater than or equal to 190 mg/dL HDL Cholesterol 38(L) >40 mg/dL [facility] Comment:Desirable HDL: great er than 40 mg/dL Note: This HDL assay may give artificially low results in patients with liver disease. Blood Venous blood specimen / Unknown 03/14/2025 2:09 PM EDT 03/14/2025 5:36 PM EDT us Nabil Lira MD LAB BLOOD ORDERABLES Final Result Performing Organization Address [facility] Co de Phone Number [facility] [address] [place] [phone] * HIV 1/2 ANTIGEN/ANTIBODY,FOURTH GENERATION W/RFL (01/28/2022 4:03 PM EDT) [facility] HIV-1/2 ANTIGEN AND ANTIBODIES, 4TH GENERATION W/ REFLEX NON-REACT [facility] NON-REACT [facility] Comment: HIV-1 antigen and HIV-1/HIV-2 [...] purpose. For additional information please refer to http://education.[employer]/faq/HVR588 (This link is being provided for informational/ educational purposes only.) The performance of this assay has not been clinically validated in patients less than 2 years old. 01/28/2022 4:03 PM EDT us Nabil Lira MD LAB BLOOD ORDERABLES Final Result Performing Organization Address City/[facility]/ZIP Co de Phone Number [facility] [address] * HEPATITIS C AB W/REFL TO HCV RNA, QN, PCR (09/17/2020 2:39 PM EST) HEPATITIS C ANTIBODY NON-REACT RONNIE NON-REACT RONNIE [facility] INDEX 0.03 <1.00 [facility] Comment: HCV antibody was non-reactive. There is no laboratory evidence of HCV infection. In most cases, no further action is required. However, if recent HCV exposure is suspected, a test for HCV RNA (test code 60026) is suggested. For additional information please refer to http://education.[employer]/faq/QUI09b0 (This link is being provided for informational/ educational purposes only.) 09/17/2020 2:39 PM EST us Serafin Estrella MD HISTORICAL/NON ORDERABLE LABS Final Result [facility] [address] from Last 3 Months or Most Recently Relevant to Health Maintenance [facility] AD[facility] Care Teams Pressure Testing Technician Relationship Specialty Start Date End Date Nabil Lira MD [address] [place] [phone] PCP - General Internal Medicine 07/12/18
== END 2025-04-12 18:57 | disposition home or self-care (01) ==
LOC: HO.MRI 18:56
PROVIDERS: PCP Internal Medicine; Visit Provider Internal Medicine Medical Oncology
DX: M54.2 Cervicalgia (principal); M47.22 Other spondylosis with radiculopathy, cervical region
CPT/HCPCS: 72141

== ENCOUNTER → 2025-04-12 19:08 | Outpatient (BNV) | payer MEDICAID, SELFPAY | PROVIDERS: PCP Internal Medicine; Visit Provider Radiology Diagnostic Radiology | DX: M46.92 Unspecified inflammatory spondylopathy, cervical region (principal) | CPT/HCPCS: 72141 ==

== ENCOUNTER 2025-07-02 14:57 | Outpatient (REF) | payer MEDICAID, SELFPAY ==
--- NOTE | ~2025-07-02 | CT_ITS ---
CLINICAL HISTORY: Follow-up on hed-xuoga-jvvj lung carcinoma. CT chest with contrast Comparison: CT/REG/SR - CT CHEST W IV CON - 03/16/25 08:[address]/FL/SR - CT CHEST W IV CON - 02/10/24 11:11 EDT Findings: Heart size is normal. Coronary artery calcifications are present. The visualized thyroid and mediastinum are unremarkable. There is a background of severe centrilobular and paraseptal emphysema. In the anterior right upper lobe again seen is a 5 mm pulmonary nodule, series 5, image 64, unchanged. No new or enlarging pulmonary nodules seen. Again seen subpleural dependent reticular opacities are unchanged and could be atelectasis or early signs of fibrotic lung disease. No effusion or pneumothorax. There is a heterogeneous right adrenal nodule measuring 2.4 cm in diameter, unchanged from 02/10/2024. There may be some punctate calcifications within this mass The bones are intact. Stable chronic moderate compression deformity T7. Stable mild compression deformity at T4. No lytic or blastic bone lesions. IMPRESSION: 1. Unchanged 5 mm pulmonary nodule in the right upper lobe. No new or enlarging pulmonary nodules. 2. Heterogeneous indeterminate right adrenal nodule measuring 2.4 cm in diameter, unchanged dating back to 02/10/2024. This document has been electronically signed by: Kody Resendiz MD on 07/03/2025 21:12:24
[2025-07-02 15:26] LABS: MANUAL DIFF FLAG NO
[2025-07-02 15:27] LABS: Hematocrit 44.7 % (42.0-52.0); Hemoglobin 14.4 g/dl (14.0-18.0); Imm Gran Abs Auto 0.05 X10*3/uL (0.00-0.03); Imm Gran Pct Auto 0.5 % (0.0-0.4); Lymphocytes Absolute Auto 3.9 X10*3/uL (1.2-4.9); Mean Corpuscular HGB Conc 32.2 g/dl (31.0-36.0); Mean Corpuscular Hemoglobin 28.8 pg (27.0-33.0); Mean Corpuscular Volume 89.4 fL (80.0-98.0); NRBC Abs Auto 0.000 X10*3/uL (0.0-0.012); NRBC Pct Auto 0.0 /100WBC (0.0-0.2); Platelet Count 257 X10*3/uL (160-400); Red Blood Count 5.00 X10*6/uL (4.60-5.80); White Blood Count 9.9 X10*3/uL (4.8-10.8)
[2025-07-02 15:42] LABS: Alanine Aminotransferase 25 U/L (0-40); Albumin Level 4.1 g/dL (3.5-5.0); Alkaline Phosphatase 87 U/L (39-117); Anion Gap 11 (12-20); Aspartate Amino Transferase 20 U/L (5-37); Blood Urea Nitrogen 11 mg/dL (9-16); Calcium 8.8 mg/dL (8.4-10.2); Carbon Dioxide 25 mmol/L (22-29); Chloride 110 mmol/L (96-108); Estimated Glomerular Filt Rate > 60; Potassium 4.6 mmol/L (3.3-5.1); Sodium 141 mmol/L (135-145); Total Protein 7.1 g/dL (6.5-8.0)
[2025-07-02] MEDS: iohexoL 350 MG/ML 100 ML INFUS..BTL 65 ML IV (16:18)
--- OUTSIDE RECORDS SUMMARY | 2025-07-02 18:12 | XMS_ITS | Encounter Summary ---
Author Organization [employer] Address [address] [facility] [address] [place] [address] Care Team Providers Care Sample Hand Name Role Phone Nabil Lira MD Primary Care Provider [phone] Encounter Details Date Type Department Care Team (Latest Contact Info) Description 02/27/2022 Abstract [facility] CONVERSIONS Dental, Provider, DDS Social History [...] Care Team (Late st Contact Info) Description 07/31/2025 3:30 PM EST Office Visit [facility] [address] [place] [address] Nabil Lira MD [address] [place] [address] documented as of this encounter Visit Diagnoses Not on filedocumented in this encounter Care Teams Sample Hand Relationship Specialty Start Date End Date Nabil Lira MD [address] [place] [address] PCP - General Internal Medicine 07/12/18 documented as of this encounter
--- OUTSIDE RECORDS SUMMARY | 2025-07-02 18:12 | XMS_ITS | Clinical Summary ---
Author Organization [employer] Address [address] [facility] [address] [place] [address] Care Team Providers Care Mail Clerks Supervisor Name Role Phone Nabil Lira MD Primary Care Provider [phone] Allergies Active Allergy Reactions Criticality Noted Date Comments Bee Pollen 12/23/2023 Other Reaction(s): Swelling Medications aspirin 81 MG EC tablet Take 1 tablet by mouth 1 (one) time each day. 11/27/19 22 Active oxyCODONE-acetamin ophen (Percocet) 5-325 MG tablet Take 1 tablet by mouth every 6 (six) hours if needed. 03/05/20 22 Active Nutritional Supplements (Ensure Active High Protein) liquid Take 1 Bottle by mouth every 12 (twelve) hours. 01/28/20 22 Active tiZANidine (Zanaflex) 2 MG tablet Take 1 tablet by mouth at bedtime. 10/07/19 22 Active cholecalciferol (Vitamin D-3) 25 MCG (1000 UT) capsule Take 1 capsule by mouth 1 (one) time each day. 02/19/20 21 Active acetaminophen (Tylenol) 500 MG tablet Take 2 tablets by mouth every 12 (twelve) hours if needed. 02/19/20 Active betamethasone dipropionate (Diprosone) 0.05 % lotion Apply topically. 2 times every day a few drops to the affected area(s) in the morning and at bedtime; rub gently and completely 10/02/19 18 Active Misc. Devices (Wrist Brace) misc To wear daily Active Blood Pressure kit Take by on arm route as directed Active morphine CR (MS Contin) 30 MG 12 hr tablet Take 30 mg by mouth every 12 (twelve) hours. 03/05/20 23 Active amLODIPine (Norvasc) 5 MG tabletIndications: Primary hypertension Take 1 tablet (5 mg) by mouth Once per day. 30 tablet 11 12/03/19 24 Active amLODIPine (Norvasc) 10 MG tablet Take 10 mg by mouth Once per day. Active nicotine (Nicoderm, Step 2) 14 MG/24HR patch PLEASE SEE ATTACHED FOR DETAILED DIRECTIONS 06/27/20 24 Active nicotine polacrilex (Commit) 4 MG lozenge PLEASE SEE ATTACHED FOR DETAILED DIRECTIONS 07/03/20 24 Active Diclofenac Sodium 1 % gelIndications:Nec k pain,Other osteoarthritis involving multiple joints APPLY 2 GRAMS TOPICALLY EVERY 6 HOURS. TO THE AFFECTED AREA(S) 100 g 1 12/23/19 25 Active nortriptyline (Pamelor) 25 MG capsuleIndications :Paresthesias Take 1 capsule (25 mg) by mouth at bedtime. 30 capsule 3 03/14/20 25 Active b complex vitamins capsuleIndications :Paresthesias Take 1 capsule by mouth Once per day. 30 capsule 11 03/14/20 25 026 Active loratadine (Claritin) 10 MG tablet TAKE 1 TABLET BY MOUTH EVERY DAY IN THE MORNING 90 tablet 1 04/19/20 25 Active dexAMETHasone (Decadron) 4 MG tabletIndications: Paresthesias,Cervi jennifer radiculopathy Take 1 tablet (4 mg) by mouth Once per day for 3 days. 3 tablet 04/27/20 25 Active tiZANidine (Zanaflex) 4 MG tabletIndications: Paresthesias,Cervi jennifer radiculopathy Take 1 tablet (4 mg) by mouth every 6 (six) hours if needed for muscle spasms for up to 10 days. 30 tablet 04/27/20 25 Active metoprolol succinate XL (Toprol-XL) 25 MG 24 hr tabletIndications: Coronary artery disease involving [place] coronary artery of [place] heart without angina pectoris TAKE 1 TABLET BY MOUTH EVERY DAY 90 tablet 1 05/14/20 25 Active pantoprazole (ProtoNix) 40 MG EC tabletIndications: Gastroesophageal reflux disease without esophagitis TAKE 1 TABLET (40 MG) BY MOUTH BEFORE BREAKFAST 90 tablet 06/01/20 25 Active atorvastatin (Lipitor) 80 MG tabletIndications: Coronary artery disease involving [place] coronary artery of [place] heart without angina pectoris TAKE 1 TABLET (80 MG) BY MOUTH IN THE MORNING 90 tablet 06/01/20 Active amoxicillin-clavul anate (Augmentin) 875-125 MG tablet Take 1 tablet by mouth 2 times daily for 7 days. 14 tablet 06/20/20 25 025 acetaminophen (Tylenol) 500 MG tablet Take 1 tablet (500 mg) by mouth every 8 (eight) hours if needed for mild pain for up to 7 days. 21 tablet 06/20/20 25 025 Active Problems Problem Noted Date Diagnosed Date Chemotherapy induced nausea and vomiting 025 Iron deficiency anemia 06/20/2025 Nicotine dependence, unspecified, uncomplicated 06/20/2025 Non-small cell lung cancer 06/20/2025 PFO (patent foramen ovale) 06/20/2025 Polysubstance abuse 06/20/2025 Right adrenal mass 06/20/2025 Sebaceous cyst of labia 06/20/2025 Tendinitis involving right hip abductors 025 Tobacco use disorder 06/20/2025 CAD (coronary artery disease) 06/20/2025 Essential hypertension 06/20/2025 Primary hypertension 09/19/2024 Coronary arteriosclerosis 06/15/2022 Pulmonary emphysema 06/15/2022 Adrenal carcinoma (CMS/HCC) 03/12/2022 Hypoalbuminemia 01/29/2022 Centriacinar emphysema ([facility]/HCC) 01/11/2018 Coronary artery disease invo lving narrag[place]ett coronary artery of [place] heart without angina pectoris 01/11/2018 Periodontal disease 10/06/2013 Contact dermatitis 04/27/2013 Gastroesophageal reflux disease 04/27/2013 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 Osteopenia 09/12/2010 Compression fracture 05/12/2010 Encounters Date Type Department Care Team Description 07/02/2025 Orders Only GENERIC EXTERNAL DATA DEPARTMENT Provider, Generic External Data 06/20/2025 1:00 PM EST Office Visit [facility] [address] [place] [address] Wing Argueta DDS 05/31/2025 Refill [facility] [address] [place] [address] Liz Vance MD Gastroesophageal reflux disease without esophagitis; Coronary artery disease involving [place] coronary artery of [place] heart without angina pectoris 05/13/2025 Refill [facility] [address] [place] [address] Nabil Lira MD Coronary artery disease involving narrag[place] coronary artery of [place] heart without angina pectoris 04/27/2025 4:00 PM EDT Office Visit [facility] [address] [place] [address] Nabil Lira MD Paresthesias (Primary Dx); Cervical radiculopathy 04/27/2025 Travel 04/26/2025 Telephone [facility] [address] [place] [address] Nabil Lira MD Chart Prep 04/19/2025 Refill [facility] [address] [place] [address] Liz Vance MD from Last 3 Months Immunizations Immunization Administration [...] Answer Date Recorded Patient Health Questionnaire-9 Score 9 04/27/2025 Patient Health Questionnaire-9 Score 9 04/27/2025 Last PHQ-9: Questionnaire Data Not on file 1 Housing Stability Answer Date Recorded What is [...] Answer Date Recorded Patient Health Questionnaire-2 Score 0 04/27/2025 Internet Access Answer Date Recorded Internet Access [...] Sign Reading Time Taken Comments Blood Pressure 100/60 06/20/2025 1:19 PM EST Pulse 77 04/27/2025 4:14 PM EDT Temperature 36.3 C (97.4 F) 03/14/2025 2:59 PM EDT Respiratory Rate 20 04/27/2025 4:14 PM EDT Oxygen Saturation 97% 04/27/2025 4:14 PM EDT Inhaled Oxygen Concentration - - Weight 80.3 kg (177 lb) 04/27/2025 4:14 PM EDT Height 185.4 cm (6' 1 ) 04/27/2025 4:14 PM EDT Body Mass Index 23.35 04/27/2025 4:14 PM EDT Plan of Treatment Upcoming Encounters Date Type Department Care Team (Late st Contact Info) Description 07/31/2025 3:30 PM EST Office Visit [facility] [address] [place] [address] Nabil Lira MD [address] [place] [address] Health Maintenance Due Date Last Done Comments CT Colonography 1966 Colonoscopy 1966 Colorectal Cancer Screening 1966 FIT DNA/Cologuard 1966 FIT 1966 FOBT 1966 Sigmoidoscopy 1966 RSV Patients and Patients Aged 60 years or older (1 - Risk 50-74 years 1-dose series) 2016 Zoster Vaccines (1 of 2) 2016 Dental Oral Exam 01/24/2025 07/26/2024, , 09/01/2018, Additional history exists Dental Prophylaxis 01/24/2025 07/26/2024, 1 , 07/27/2018, Additional history exists COVID-19 Vaccine ( season) 2025 04/25/2021, 04/03/2021 Influenza Vaccine (#1) 2025 04/27/2013 Alcohol/Substance Use Screening 09/20/2025 09/20/2024 SDOH Screening 09/20/2025 09/20/2024 Depression Monitoring 10/26/2025 04/27/2025, 025 DTaP/Tdap/Td Vaccines (1 - Tdap) 03/14/2026 Postponed from 1985 (Patient Refused) Diabetes: Hemoglobin A1C 03/14/2026 03/14/2025, 07/2 Hepatitis B Vaccines (1 of 3 - 19+ 3-dose series) 03/14/2026 Postponed from 1985 (Patient Refused) Pneumococcal Vaccine: 50+ Years (1 of 2 - PCV) 03/14/2026 Postponed from 1985 (Patient Refused) Dental X-Ray: Full Mouth 03/23/2026 03/22/2023, 1208/2012 Disability Screening 04/27/2026 04/27/2025 Tobacco Screening 06/20/2026 06/20/2025 Dental X-Ray: Bitewings 06/21/2026 06/20/20, 07/26/2024, 03/22/2023, Additional history exists Lipid Panel 03/14/2030 03/14/2025, 01/28/2022 Hepatitis C Screening Completed 09/17/2020 HIV Screening [...] Procedure Name Priority Date/Time Associated Diagnosis Comments COMPREHENSIVE METABOLIC PANEL Routine 07/02/2025 3:23 PM EST CBC WITH AUTO DIFFERENTIAL Routine 07/02/2025 3:23 PM EST CASE PRESENTATION, DETAILED AND EXTENSIVE TREATMENT PLANNING Routine 06/20/2025 1:00 PM EST PALLIATIVE (EMERGENCY) TREATMENT OF DENTAL PAIN - MINOR PROCEDURE Routine 06/20/2025 1:00 PM EST BITEWING - SINGLE RADIOGRAPHIC IMAGE Routine 06/20/2025 1:00 PM EST INTRAORAL - PERIAPICAL EACH ADDITIONAL RADIOGRAPHIC IMAGE Routine 06/20/2025 1:00 PM EST INTRAORAL - PERIAPICAL EACH ADDITIONAL RADIOGRAPHIC IMAGE Routine 06/20/2025 1:00 PM EST INTRAORAL - PERIAPICAL EACH ADDITIONAL RADIOGRAPHIC IMAGE Routine 06/20/2025 1:00 PM EST INTRAORAL - PERIAPICAL FIRST RADIOGRAPHIC IMAGE Routine 06/20/2025 1:00 PM EST 18 EXTRACTION, ERUPTED TOOTH OR EXPOSED ROOT (ELEVATION/FORCEPS REMOVAL) Routine 06/20/2025 1:00 PM EST MR CERVICAL SPINE WO CONTRAST Routine 04/12/2025 8:23 PM EDT HEMOGLOBIN A1C Routine 03/14/2025 2:09 PM EDT Coronary artery disease involving [place] coronary artery of [place] heart without angina pectoris LIPID PANEL, STANDARD Routine 03/14/2025 2:09 PM EDT Coronary artery disease involving [place] coronary artery of [place] heart without angina pectoris Full PROPHYLAXIS - ADULT Routine 07/26/2024 1:00 PM EST PERIODIC ORAL [...] Recently Relevant to Health Maintenance Results * (ABNORMAL) CBC auto differential (07/02/2025 3:23 PM EST) White Blood Count 9.9 4.8 - 10.8 X10*3/uL [facility] Red Blood Count 5.00 4.60 - 5.80 X10*6/uL [facility] Hemoglobin 14.4 14.0 - 18.0 g/dl [facility] Hematocrit 44.7 42.0 - 52.0 % [facility] Mean Corpuscular Volume 89.4 80.0 - 98.0 fL [facility] Mean Corpuscular Hemoglobin 28.8 27.0 - 33.0 pg [facility] Mean Corpuscular HGB Conc 32.2 31.0 - 36.0 g/dl [facility] Red Cell Distribution Width 14.4 11.0 - 16.0 % [facility] Platelet Count 257 160 - 400 X10*3/uL [facility] Mean Platelet Volume 9.3(L) 9.4 - 12.4 fL [facility] Neutrophils Percent Auto 47.0 45 - 73 % [facility] Imm Gran Pct Auto 0.5(H) 0.0 - 0.4 % [facility] Lymphocytes Percent Auto 39.1 20 - 40 % [facility] Monocytes Percent Auto 10.1 2 - 11 % [facility] Eosinophils Percent Auto 2.2 0 - 4 % [facility] Basophils Percent Auto 1.1 0 - 2 % [facility] NRBC Pct Auto 0.0 0.0 - 0.2 /100WBC [facility] Neutrophils Absolute Auto 4.7 2.0 - 8.3 x10*3/uL [facility] Imm Gran Abs Auto 0.05(H) 0.00 - 0.03 X10*3/uL [facility] Lymphocytes Absolute Auto 3.9 1.2 - 4.9 X10*3/uL [facility] Monocytes Absolute Auto 1.0 0.1 - 1.2 X10*3/uL [facility] Eosinophils Absolute Auto 0.2 0.0 - 0.4 X10*3/uL [facility] Basophils Absolute Auto 0.1 0.0 - 0.2 X10*3/uL [facility] NRBC Abs Auto 0.000 0.0 - 0.012 X10*3/uL [facility] 07/02/2025 3:23 PM EST 07/02/2025 3:23 PM EST us Generic External Data Provider LAB BLOOD ORDERAB LES Final Result [facility] [address] [place], [place] [phone] * (ABNORMAL) Comprehensive Metabolic Panel (07/02/2025 3:23 PM EST) Sodium 141 135 - 145 mmol/L [facility] Potassium 4.6 3.3 - 5.1 mmol/L [facility] Chloride 110(H) 96 - 108 mmol/L [facility] Carbon Dioxide 25 22 - 29 mmol/L [facility] Anion Gap 11(L) 12 - 20 [facility] Urea Nitrogen (BUN) 11 9 - 16 mg/dL [facility] Creatinine, Serum 0.87 0.5 - 1.4 mg/dL [facility] Estimated Glomerular Filt Rate >60 [facility] Comment:Chronic Kidney Disea se: Estimated GFR < 60 mL/min/[id number] Kidney Disease: Estimated GFR < 15 mL/min/1.73m2 Glucose 98 60 - 115 mg/dL [facility] Calcium 8.8 8.4 - 10.2 mg/dL [facility] Bilirubin, Total 0.5 0.0 - 1.0 mg/dL [facility] Aspartate Amino Transferase 20 5 - 37 U/L [facility] Alanine Aminotransferase 25 0 - 40 U/L [facility] Total Protein 7.1 6.5 - 8.0 g/dL [facility] Albumin Level 4.1 3.5 - 5.0 g/dL [facility] Alkaline Phosphatase 87 39 - 117 U/L [facility] 07/02/2025 3:23 PM EST 07/02/2025 3:23 PM EST us Generic External Data Provider LAB BLOOD ORDERAB LES Final Result Performing Organization Address City/State/[facility] Co de Phone Number [facility] [address] [place] [phone] * MR Cervical Spine w/o Contrast (04/12/2025 8:23 PM EDT) Anatomical Region Laterality Modality Spine, C-spine Magnetic Resonan ce 04/12/2025 8:23 PM EDT Narrative 04/12/2025 8:24 PM EDT [address] [address] Magnetic Resonance Report Signed Patient: Javier Soni MR#: [id number] : 1965 Acct:[id number] Age/Sex: 59 / M ADM Date: 04/12/25 Loc: HO.MRI Attending Dr: Demetrio Martinez MD Ordering Physician: Demetrio Martinez MD Date of Service: 04/12/25 Procedure(s): MR cervical spine wo con Accession Number(s): [id number] cc: Nabil Lira MD; Demetrio Martinez MD Reason for Exam: Neck pain, numbness tingling left upper extremity. CLINICAL HISTORY: Neck pain, numbness tingling left upper extremity. --- Additional Notes or Special Instructions: [id number] lung carcinoma MR cervical spine without gadolinium Comparison: None provided Findings: Cervical spine lordosis is maintained. No fracture or subluxation. No spondylolisthesis. No pathologic marrow signal abnormalities. Visualized cervical and upper thoracic spinal cord demonstrates normal signal characteristics. Patent and unremarkable craniocervical junction. C2-C3: Mild disc space narrowing and disc degeneration. No disc herniation or central canal stenosis. Minimal narrowing of bilateral neural foramina on the basis of facet and uncovertebral spurring. C3-C4: Mild disc space narrowing and disc degeneration. Mild broad-based disc herniation without significant spinal canal stenosis. Neural foramina are mildly narrowed on the right and moderately narrowed on the left. Facet arthropathy. C4-C5: Moderate disc space narrowing and disc degeneration. Small posterior disc osteophyte complex without significant spinal canal stenosis. Mild right-sided and moderate left-sided neural foraminal stenosis on the basis of facet and uncovertebral spurring. C5-C6: Moderate disc space narrowing and disc degeneration. Posterior disc osteophyte complex with more focal right paracentral zone disc protrusion. There is ventral effacement of thecal sac with [id number] mass effect/compression of the cervical spinal cord at this level. No cord signal abnormalities. Overall, moderate narrowing of spinal canal. Moderate right-sided and severe left-sided neural foraminal stenosis. C6-C7 moderate disc space narrowing and disc degeneration. Posterior disc osteophyte complex effacing ventral thecal sac and mildly indenting ventral margin of cervical spinal cord at this level. Mild narrowing of spinal canal. Moderate narrowing of bilateral neural foramina on the basis of facet and uncovertebral spurring. C7-T1: No disc herniation, central canal or significant neural foramina stenosis. No acute findings within visualized paraspinal soft tissues. Visualized lower intracranial content is unremarkable. Impression: 1. 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 2. Additional chronic/nonacute findings as above. This document has been electronically signed by: Emi Keith MD on 04/12/2025 20:23:27 Dictated By: Emi Keith MD Signed By: <Electronically signed by Emi Keith MD in OV> 04/12/252022 DD/ 22 TD/TT: 04/12/252022 [employer]: Procedure Note Donotuseinterpreter, Image - 04/12/2025 [place] [id number] Magnetic Resonance Report Signed Patient: Javier Soni AMR#: [id number] : 1965Acct:[id number] Age/Sex: 59 / MADM Date: 04/12/25 Loc: HO.MRI Attending Dr: Demetrio Martinez MD Ordering Physician: Demetrio Martinez MD Date of Service: 04/12/25 Procedure(s): MR cervical spine wo con Accession Number(s): [id number] cc: Nabil Lira MD; Demetrio Martinez MD Reason for Exam: Neck pain, numbness tingling left upper extremity. CLINICAL HISTORY: Neck pain, numbness tingling left upper extremity. ---Additional Notes or Special Instructions: [id number] lung carcinoma MR cervical spine without gadolinium Comparison: None provided Findings: Cervical spine lordosis is maintained. No fracture or subluxation. No spondylolisthesis. No pathologic marrow signal abnormalities. Visualized cervical and upper thoracic spinal cord demonstrates normal signal characteristics. Patent and unremarkable craniocervical junction. C2-C3: Mild disc space narrowing and disc degeneration. No disc herniation or central canal stenosis. Minimal narrowing of bilateral neural foramina on the basis of facet and uncovertebral spurring. C3-C4: Mild disc space narrowing and disc degeneration. Mild broad-based disc herniation without significant spinal canal stenosis. Neural foramina are mildly narrowed on the right and moderately narrowed on the left. Facet arthropathy. C4-C5: Moderate disc space narrowing and disc degeneration. Small posterior disc osteophyte complex without significant spinal canal stenosis. Mild right-sided and moderate left-sided neural foraminal stenosis on the basis of facet and uncovertebral spurring. C5-C6: Moderate disc space narrowing and disc degeneration. Posterior disc osteophyte complex with more focal right paracentral zone disc protrusion. There is ventral effacement of thecal sac with uctp-kw-[id number] mass effect/compression of the cervical spinal cord at this level. No cord signal abnormalities. Overall, moderate narrowing of spinal canal. Moderate right-sided and severe left-sided neural foraminal stenosis. C6-C7 moderate disc space narrowing and disc degeneration. Posterior disc osteophyte complex effacing ventral thecal sac and mildly indenting ventral margin of cervical spinal cord at this level. Mild narrowing of spinal canal. Moderate narrowing of bilateral neural foramina on the basis of facet and uncovertebral spurring. C7-T1: No disc herniation, central canal or significant neural foramina stenosis. No acute findings within visualized paraspinal soft tissues. Visualized lower intracranial content is unremarkable. Impression: 1. 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 2. Additional chronic/nonacute findings as above. This document has been electronically signed by: Emi Keith MD on 04/12/2025 20:23:27 Dictated By: Emi Keith MD Signed By: <Electronically signed by Emi Keith MD in OV> 04/12/252022 DD/ 22 TD/TT: 04/12/252022 [employer]: [facility] External Provider IMG MRI PROCEDURES Edited Result - Final * Hemoglobin A1c (03/14/2025 2:09 PM EDT) Hemoglobin A1c 5.9 <6.0 % [facility] Comment:Hemoglobin A1C Refer ence Range Adults: 4.8 - 6.0 % Non diabetic: < 6.0 % Goal: < 7.0 %Additional Action Suggested: > 8.0 %Note: Hemoglobin A1c results are invalid for patients with abnormal amounts of HbF. Blood transfusions may impact the HbA1c concentration in the patient sample. Estimated Average Glucose 123 mg/dL [facility] Comment:eAG = Estimated ave rage glucose which is %A1C expressed asaverage glucose, using the formula of the [id number] Glucose study (ADAG), Diabetes Care, Vol.31,#8,Feb. 2007 Blood Venous blood specimen / Unknown 03/14/2025 2:09 PM EDT 03/14/2025 5:36 PM EDT us Nabil Lira MD LAB BLOOD ORDERABLES Final Result Performing Organization Address [facility] Co de Phone Number [facility] [address] [place] [address] [phone] * (ABNORMAL) Lipid Panel, Standard (03/14/2025 2:09 PM EDT) Triglycerides 143 <150 mg/dL [facility] Comment:Desirable Triglyceri de: less than 150 mg/dLBorderline High Triglyceride 150-199 mg/dLHigh Triglyceride: 200-499 mg/dLVery High Triglyceride: greater than or equal to 5OO mg/dL Cholesterol 113 <200 mg/dL [facility] Comment:Desirable Cholestero l: less than 200 mg/dLBorderline High Cholesterol: 200-239 mg/dLHigh Cholesterol: greater than 239 mg/dL LDL Cholesterol Calculated 47 <100 mg/dL [facility] Comment:Desirable LDL: less than 100 mg/dLNear Optimal/Above Optimal LDL: 110- 129 mg/dLBorderline High LDL: 130-159 mg/dLHigh LDL: 160-189 mg/dLVery High LDL: greater than or equal to 190 mg/dL HDL Cholesterol 38(L) >40 mg/dL [facility] Comment:Desirable HDL: great er than 40 mg/dL Note: This HDL assay may give artificially low results in patients with liver disease. Blood Venous blood specimen / Unknown 03/14/2025 2:09 PM EDT 03/14/2025 5:36 PM EDT us Nabil Lira MD LAB BLOOD ORDERABLES Final Result Performing Organization Address City/[facility]/ZIP Co de Phone Number [facility] [address] [place] [address] [phone] * HIV 1/2 ANTIGEN/ANTIBODY,FOURTH GENERATION W/RFL [...] purpose. For additional information please refer to http://Dreamise.tracx/faq/VOA052 (This link is being provided for informational/ educational purposes only.) The performance of this assay has not been clinically validated in patients less than 2 years old. 01/28/2022 4:03 PM EDT Nabil Lira MD LAB BLOOD ORDERABLES Final Result [facility] [address] * HEPATITIS C AB W/REFL TO HCV RNA, QN, PCR (09/17/2020 2:39 PM EST) HEPATITIS C ANTIBODY NON-REACT [facility] NON-REACT [facility] INDEX 0.03 <1.00 [facility] Comment: HCV antibody was non-reactive. There is no laboratory evidence of HCV infection. In most cases, no further action is required. However, if recent HCV exposure is suspected, a test for HCV RNA (test code 78685) is suggested. For additional information please refer to http://Dreamise.tracx/faq/PMW66o6 (This link is being provided for informational/ educational purposes only.) 09/17/2020 2:39 PM EST us Serafin Estrella MD HISTORICAL/NON ORDERABLE LABS Final Result [facility] [address] [place] [address], from Last 3 Months or Most Recently Relevant to Health Maintenance Insurance [facility] C3 DENTAL-[facility] MEDICAID STAND ADULT Care Teams Mail Clerks Supervisor Relationship Specialty Start Date End Date Nabil Lira MD [address] [place] [phone] PCP - General Internal Medicine 07/12/18
--- OUTSIDE RECORDS SUMMARY | 2025-07-02 18:12 | XMS_ITS | Clinical Summary ---
Author Organization [facility] [employer] [facility] ity Address [address] [place] [address] Care Team Providers Care Retail Coverage Merchandiser Lead Name Role Phone Unavailable Primary Care Provider [...] Depression Screening 07/12/2024 COVID-19 Vaccine (1 - 2024-2 6 season) 2025 Influenza Vaccine (#1) 2025 RSV Immunization Adult Patie nts (1 - 1-dose 75+ series) 2041 HIB Vaccines Aged Out No longer eligi [...]
--- OUTSIDE RECORDS SUMMARY | 2025-07-02 18:12 | XMS_ITS | Encounter Summary ---
Author Organization [employer] Address [address] [facility] 7[address] [place] [address] Care Team Providers Care Manufacturing Engineer Automotive Name Role Phone Nabil Lira MD Primary Care Provider [phone] Encounter Details Date Type Department Care Team ([facility] st Contact Info) Description 03/14/2025 Orders Only [facility] CHC MED & PEDS [address], [place] [phone] Nabil Lira MD [address] [place], [place] [phone] Paresthesias (Primary Dx); Other elevated white blood [...] the past 12 months, has t he [employer], gas, oil or water company threatened to [...] Description 07/31/2025 3:30 PM EST Office Visit [facility] MED & PEDS [address] [place] [address] Nabli Lira MD [address] [place] [address] documented as of this encounter Procedures Procedure Name Priority Date/Time Associated Diagnosis Comments MR CERVICAL SPINE WO CONTRAST Routine 04/12/2025 8:[address] CHEST W CONTRAST Routine 03/17/2025 2 :08 PM EDT CBC WITH AUTO DIFFERENTIAL Routine 03/16/2025 7:56 AM EDT Paresthesias Other elevated white blood cell (WBC) count documented in this encounter Results * MR Cervical Spine w/o Contrast (04/12/2025 8:23 PM EDT) Anatomical Region Laterality Modality Spine, C-spine Magnetic Resonan ce 04/12/2025 8:23 PM EDT Narrative 04/12/2025 8:24 PM EDT [address] [address] Magnetic Resonance Report Signed Patient: Javier Soni MR#: [id number] : 1965 Acct:[id number] Age/Sex: 59 / M ADM Date: 04/12/25 Loc: HO.MRI Attending Dr: Demetrio Martinez MD Ordering Physician: Demetrio Martinez MD Date of Service: 04/12/25 Procedure(s): MR cervical spine wo con Accession Number(s): [id number] cc: Nabil Lira MD; Demetrio Martinez MD Reason for Exam: Neck pain, numbness tingling left upper extremity. CLINICAL HISTORY: Neck pain, numbness tingling left upper extremity. --- Additional Notes or Special Instructions: Znf-pjnpo-xlos lung carcinoma MR cervical spine without gadolinium [...] is ventral effacement of thecal sac with hptz-qu-otjbigwv mass effect/compression of the cervical spinal cord [...] in OV> 04/12/252022 DD/ 22 TD/TT: 04/12/252022 Ore Roaster: Procedure Note Donotuseinterpreter, Image - 04/12/2025 [place] [address] Magnetic Resonance Report Signed Patient: Javier Soni AMR#: [id number] : 1965Acct:[id number] Age/Sex: 59 / MADM Date: 04/12/25 Loc: HO.MRI Attending Dr: Demetrio Martinez MD Ordering Physician: Demetrio Martinez MD Date of Service: 04/12/25 Procedure(s): MR cervical spine wo con Accession Number(s): [id number] cc: Nabil Lira MD; Demetrio Martinez MD Reason for Exam: Neck pain, numbness tingling left upper extremity. CLINICAL HISTORY: Neck pain, numbness tingling left upper extremity. ---Additional Notes or Special Instructions: Ody-eixav-sdgn lung carcinoma MR cervical spine without gadolinium [...] is ventral effacement of thecal sac with idio-pz-mwhlcihx mass effect/compression of the cervical spinal cord [...] in OV> 04/12/252022 DD/ 22 TD/TT: 04/12/252022 Ore Roaster: [facility] External Provider IMG MRI PROCEDURES Edited Result - Final * CT Chest w/ Contrast (03/17/2025 2:08 PM EDT) Anatomical Region Laterality Modality Body, Chest Computed Tomogra phy 03/17/2025 2:08 PM EDT Narrative 03/17/2025 2:10 PM EDT [address] [address] [address] Scan Report Signed Patient: Javier Soni MR#: [id number] : 1965 Acct:[id number] Age/Sex: 59 / M ADM Date: 03/16/25 Loc: HO.CT Attending Dr: Demetrio Martinez MD Ordering Physician: Demetrio Martinez MD Date of Service: 03/16/25 Procedure(s): CT chest w IV con Accession Number(s): [id number] cc: Nabil Lira MD; Demetrio Martinez MD Report Number: [id number]: Total DLP = 143.00 mGy-cm Reason for Exam: Follow-up kta-srpqu-yigv lung carcinoma. CLINICAL HISTORY: Follow-up uya-knvtl-ulbg lung carcinoma. CT Chest with IV contrast: [...] signed by Randy Sharma MD in OV> 09/01/03 1409 DD/ 07 TD/TT: 03/17/251407 Ore Roaster: Procedure Note Donotuseinterpreter, Image - 03/17/[address] [address] [address] Scan Report Signed Patient: Javier Soni AMR#: [id number] : 1965Acct:[id number] Age/Sex: 59 / MADM Date: 03/16/25 Loc: HO.CT Attending Dr: Demetrio Martinez MD Ordering Physician: Demetrio Martinez MD Date of Service: 03/16/25 Procedure(s): CT chest w IV con Accession Number(s): [id number] cc: Nabil Lira MD; Demetrio Martinez MD Report Number: [id number]: Total DLP = 143.00 mGy-cm Reason for Exam: Follow-up qmd-ufhln-hlvm lung carcinoma. CLINICAL HISTORY: Follow-up rru-vepwi-xosh lung carcinoma. CT Chest with IV contrast: [...] signed by Randy Sharma MD in OV> 03/17/251408 DD/ 07 TD/TT: 03/17/25 1408 Ore Roaster: [facility] External Provider IMG CT PROCEDURES Final Result * (ABNORMAL) CBC auto differential (03/16/2025 7:56 AM EDT) White Blood Count 7.8 4.8 - 10.8 X10*3/uL [facility] Red Blood Count 5.40 4.60 - 5.80 X10*6/uL [facility] Hemoglobin 15.3 14.0 - 18.0 g/dl [facility] Hematocrit 46.7 42.0 - 52.0 % [facility] Mean Corpuscular Volume 86.5 80.0 - 98.0 fL [facility] Mean Corpuscular Hemoglobin 28.3 27.0 - 33.0 pg [facility] Mean Corpuscular HGB Conc 32.8 31.0 - 36.0 g/dl [facility] Red Cell Distribution Width 14.0 11.0 - 16.0 % [facility] Platelet Count 232 160 - 400 X10*3/uL [facility] Mean Platelet Volume 9.9 9.4 - 12.4 fL [facility] Neutrophils Percent Auto 46.8 45 - 73 % [facility] Imm Gran Pct Auto 0.3 0.0 - 0.4 % [facility] Lymphocytes Percent Auto 38.3 20 - 40 % [facility] Monocytes Percent Auto 8.8 2 - 11 % [facility] Eosinophils Percent Auto 4.6(H) 0 - 4 % [facility] Basophils Percent Auto 1.2 0 - 2 % [facility] NRBC Pct Auto 0.0 0.0 - 0.2 /100WBC [facility] Neutrophils Absolute Auto 3.7 2.0 - 8.3 x10*3/uL [facility] Imm Gran Abs Auto 0.02 0.00 - 0.03 X10*3/uL [facility] Lymphocytes Absolute Auto 3.0 1.2 - 4.9 X10*3/uL [facility] Monocytes Absolute Auto 0.7 0.1 - 1.2 X10*3/uL [facility] Eosinophils Absolute Auto 0.4 0.0 - 0.4 X10*3/uL [facility] Basophils Absolute Auto 0.1 0.0 - 0.2 X10*3/uL [facility] NRBC Abs Auto 0.000 0.0 - 0.012 X10*3/uL [facility] Blood Venous blood specimen / Unknown 03/16/2025 7:56 AM EDT 03/16/2025 7:56 AM EDT Nabil Lira MD LAB BLOOD ORDERABLES Final Result [facility] [address] [place] [phone] [phone] documented in this encounter Visit Diagnoses Diagnosis Paresthesias- Primary Disturbance of skin sensation Other elevated white blood cell (WBC) count documented in this encounter Additional Health Concerns Assessment Noted Time PHQ-9 Depression Total Score: 15 025 9:03 AM EDT documented as of this encounter Care Teams Manufacturing Engineer Automotive Relationship Specialty Start Date End Date Nabil Lira MD [address] [place] [phone] PCP - General Internal Medicine 07/12/18 documented as of this encounter
--- OUTSIDE RECORDS SUMMARY | 2025-07-02 18:12 | XMS_ITS | Encounter Summary ---
Author Organization [employer] Address [address] [facility] 7[address] [place] [address] Care Team Providers Care Stewarding Supervisor Name Role Phone Nabil Lira MD Primary Care Provider [phone] Encounter Details Date Type Department Care Team ([facility] Contact Info) Description 07/02/2025 Orders Only GENERIC EXTERNAL DATA DEPARTMENT Provider, Generic External Data Social History Tobacco Use Types Packs/Day Years [...] Upcoming Encounters Date Type Department Care Team ([facility] st Contact Info) Description 07/31/2025 3:30 PM EST Office Visit [facility] CHC MED & PEDS [address] [place] [address] Nabil Lira MD [address] [place] [address] documented as of this encounter Procedures Procedure Name Priority Date/Time Associated Diagnosis Comments CBC WITH AUTO DIFFERENTIAL Routine 07/02/2025 3:23 PM EST COMPREHENSIVE METABOLIC PANEL Routine 07/02/2025 3:23 PM EST documented in this encounter Results * (ABNORMAL) Comprehensive Metabolic Panel (07/02/2025 3:23 PM EST) Sodium 141 135 - 145 mmol/L [facility] Potassium 4.6 3.3 - 5.1 mmol/L [facility] Chloride 110(H) 96 - 108 mmol/L [facility] Carbon Dioxide 25 22 - 29 mmol/L [facility] Anion Gap 11(L) 12 - 20 [facility] Urea Nitrogen (BUN) 11 9 - 16 mg/dL [facility] Creatinine, Serum 0.87 0.5 - 1.4 mg/dL [facility] Estimated Glomerular Filt Rate >60 [facility] Comment:Chronic Kidney Disea se: Estimated GFR < 60 mL/min/1.13n6Vokghg Kidney Disease: Estimated GFR < 15 mL/min/1.73m2 Glucose 98 60 - 115 mg/dL [facility] Calcium 8.8 8.4 - 10.2 mg/dL [facility] Bilirubin, Total 0.5 0.0 - 1.0 mg/dL [facility] Aspartate Amino Transferase 20 5 - 37 U/L [facility] Alanine Aminotransferase 25 0 - 40 U/L [facility] Total Protein 7.1 6.5 - 8.0 g/dL [facility] Albumin Level 4.1 3.5 - 5.0 g/dL [facility] Alkaline Phosphatase 87 39 - 117 U/L [facility] 07/02/2025 3:23 PM EST 07/02/2025 3:23 PM EST us Generic External Data Provider LAB BLOOD ORDERAB LES Final Result [facility] [address] [place] [phone] * (ABNORMAL) CBC auto differential (07/02/2025 3:23 PM EST) White Blood Count 9.9 4.8 - 10.8 X10*3/uL [facility] Red Blood Count 5.00 4.60 - 5.80 X10*6/uL [facility] Hemoglobin 14.4 14.0 - 18.0 g/dl [facility] Hematocrit 44.7 42.0 - 52.0 % [facility] Mean Corpuscular Volume 89.4 80.0 - 98.0 fL [facility] Mean Corpuscular Hemoglobin 28.8 27.0 - 33.0 pg [facility] Mean Corpuscular HGB Conc 32.2 31.0 - 36.0 g/dl [facility] Red Cell Distribution Width 14.4 11.0 - 16.0 % [facility] Platelet Count 257 160 - 400 X10*3/uL [facility] Mean Platelet Volume 9.3(L) 9.4 - 12.4 fL [facility] Neutrophils Percent Auto 47.0 45 - 73 % [facility] Imm Gran Pct Auto 0.5(H) 0.0 - 0.4 % [facility] Lymphocytes Percent Auto 39.1 20 - 40 % [facility] Monocytes Percent Auto 10.1 2 - 11 % [facility] Eosinophils Percent Auto 2.2 0 - 4 % [facility] Basophils Percent Auto 1.1 0 - 2 % [facility] NRBC Pct Auto 0.0 0.0 - 0.2 /100WBC [facility] Neutrophils Absolute Auto 4.7 2.0 - 8.3 x10*3/uL [facility] Imm Gran Abs Auto 0.05(H) 0.00 - 0.03 X10*3/uL [facility] Lymphocytes Absolute Auto 3.9 1.2 - 4.9 X10*3/uL [facility] Monocytes Absolute Auto 1.0 0.1 - 1.2 X10*3/uL [facility] Eosinophils Absolute Auto 0.2 0.0 - 0.4 X10*3/uL [facility] Basophils Absolute Auto 0.1 0.0 - 0.2 X10*3/uL [facility] NRBC Abs Auto 0.000 0.0 - 0.012 X10*3/uL [facility] 07/02/2025 3:23 PM EST 07/02/2025 3:23 PM EST us Generic External Data Provider LAB BLOOD ORDERAB LES Final Result [facility] [address] [place] [phone] [phone] documented in this encounter Visit Diagnoses Not on filedocumented in this encounter Additional Health Concerns Assessment Noted Time PHQ-9 Depression Total Score: 9 10/17/20 25 4:15 PM EDT documented as of this encounter Care Teams Stewarding Supervisor Relationship Specialty Start Date End Date Nabil Lira MD [address] [place] [phone] PCP - General Internal Medicine 07/12/18 documented as of this encounter
--- OUTSIDE RECORDS SUMMARY | 2025-07-02 18:12 | XMS_ITS | Encounter Summary ---
Author Organization [employer] Address [address] [facility] [address] [place] [address] Care Team Providers Care Membership Counselor Name Role Phone Nabil Lira MD Primary Care Provider [phone] Encounter Details Date Type Department Care Team ([facility] st Contact Info) Description 07/26/2024 Orders Only [facility] CHC MED & PEDS [address] [place], [place] [phone] Nabil Lira MD [address] [place], [place] [phone] Social History Tobacco Use Types Packs/Day Years [...] Upcoming Encounters Date Type Department Care Team ([facility] st Contact Info) Description 07/31/2025 3:30 PM EST Office Visit [facility] MED & PEDS [address] [place] [address] Nabil Lira MD [address] [place] [address] documented as of this encounter Visit Diagnoses Not on filedocumented in this encounter Additional Health Concerns Assessment Noted Time PHQ-9 Depression Total Score: 11 02/23/ 023 10:09 AM EDT documented as of this encounter Care Teams Membership Counselor Relationship Specialty Start Date End Date Nabil Lira MD [address] [place] [address] PCP - General Internal Medicine 07/12/18 documented as of this encounter
--- OUTSIDE RECORDS SUMMARY | 2025-07-02 18:12 | XMS_ITS | Encounter Summary ---
Author Organization [email or web address] Address [address] [facility] [address] [place] [address] Care Team Providers Care Butcher Helper Name Role Phone Nabil Lira MD Primary Care Provider [phone] Encounter Details Date Type Department Care Team (Latest Contact Info) Description 07/27/2018 Abstract [facility] Dental, Provider, DDS Social History [...] Description 07/31/2025 3:30 PM EST Office Visit [facility] CHC MED & PEDS [address] [place] [address] Nabil Lira MD [address] [place] [address] documented as of this encounter Visit Diagnoses Not on filedocumented in this encounter Care Teams Butcher Helper Relationship Specialty Start Date End Date Nabil Lira MD [address] [place] [address] PCP - General Internal Medicine 07/12/18 documented as of this encounter
== END 2025-07-02 14:58 | disposition home or self-care (01) ==
LOC: HO.CT 14:57
PROVIDERS: PCP Internal Medicine; Visit Provider Internal Medicine Medical Oncology
DX: C34.92 Malignant neoplasm of unspecified part of left bronchus or lung (principal)
CPT/HCPCS: 36415; 71260; 80053; 85025; Q9967

== ENCOUNTER → 2025-07-02 14:59 | Outpatient (BNV) | payer MEDICAID, SELFPAY | PROVIDERS: PCP Internal Medicine; Visit Provider Radiology Diagnostic Radiology | DX: C34.90 Malignant neoplasm of unspecified part of unspecified bronchus or lung (principal); R91.1 Solitary pulmonary nodule | CPT/HCPCS: 71260 ==